=== PATIENT | male | born 1945 | race Caucasian/White ===

== ENCOUNTER 2018-10-27 06:27 | Inpatient (IN) | payer OTHER, BC ==
[2018-10-27 07:06] VITALS: BMI 32.3
[2018-10-27 08:16] LABS: BASO % 0.2 % (0-2.0); EOS % 1.5 % (0-4.5); HEMATOCRIT 45.5 % (35.4-49); HEMOGLOBIN 15.2 GM/dL (11.7-16.9); MCH 33.7 pg (25.7-33.7); MCHC 33.5 g/dl (32.0-35.9); MEAN CELL VOLUME 100.6 fl (80-96); MEAN PLT VOLUME 9.3 fl (7.5-11.1); MONO % 4.9 % (3.8-10.2); NEUT % 89.4 % (42.8-82.8); PLATELET COUNT 158 K/MM3 (134-434); RBC 4.52 M/mm3 (4.00-5.60); RDW 15.3 % (11.9-15.9); WHITE BLOOD COUNT 9.6 K/mm3 (4.0-10.0)
[2018-10-27 08:29] LABS: VENOUS PC02 59.9 mmHg (41-51); VENOUS PH 7.32 (7.31-7.41)
--- NOTE | 2018-10-27 08:29 | EKG ---
Test Reason : Blood Pressure : / mmHG Vent. Rate : 087 BPM Atrial Rate : 087 BPM P-R Int : 180 ms QRS Dur : 096 ms QT Int : 358 ms P-R-T Axes : 041 -46 051 degrees QTc Int : 430 ms SINUS RHYTHM WITH PREMATURE ATRIAL COMPLEXES LEFT ANTERIOR FASCICULAR BLOCK ABNORMAL ECG WHEN COMPARED WITH ECG OF 27-JAN-2014 10:36, PREMATURE ATRIAL COMPLEXES ARE NOW PRESENT VT INTERVAL HAS DECREASED VENT. RATE HAS INCREASED BY 39 BPM INCOMPLETE RIGHT BUNDLE BRANCH BLOCK IS NO LONGER PRESENT Confirmed by GINNY RODRIGUEZ, ROMEO ([id number]) on 10/27/2018 8:28:54 AM Referred By: Confirmed By:ROMEO GROSS MD
[2018-10-27 08:30] LABS: VENOUS PO2 27.1 mmHg (30-40)
[2018-10-27 08:41] LABS: INR 1.15 (0.83-1.09); PROTHROMBIN TIME (PATIENT) 13.6 SEC (9.7-13.0)
[2018-10-27 08:43] LABS: ACTIVATED PTT 30.7 SECONDS (25.2-36.5)
[2018-10-27 08:51] LABS: MAGNESIUM 1.6 mg/dL (1.8-2.4); N-TERMINAL BNP 313.1 pg/ml (5-450)
[2018-10-27 08:52] LABS: ALBUMIN 3.8 g/dl (3.4-5.0); ALK PHOS 42 U/L (45-117); ANION GAP 6 MMOL/L (8-16); BLOOD UREA NITROGEN 19 mg/dL (7-18); CALCIUM 9.2 mg/dL (8.5-10.1); CHLORIDE 103 mmol/L (98-107); CO2 30 mmol/L (21-32); CREATININE 1.1 mg/dL (0.55-1.3); GLUCOSE,RANDOM 109 mg/dL (74-106); POTASSIUM 4.2 mmol/L (3.5-5.1); SGOT/AST 15 U/L (15-37); SGPT/ALT 22 U/L (13-61); SODIUM 139 mmol/L (136-145)
--- NOTE | 2018-10-27 10:08 | PDOC ---
Documentation entered by Andria Gonzalez SCRIBE, acting as scribe for Viral Gordon MD. Viral Gordon MD: This documentation has been prepared by the Lisa peterson Victoria, SCRIBE, under my direction and personally reviewed by me in its entirety. I confirm that the documentation accurately reflects all work, treatment, procedures, and medical decision making performed by me. History of Present Illness - General Chief Complaint: SIRS, Suspected/Possible Stated Complaint: FEVER Time Seen by Provider: 10/27/18 07:08 History Source: Patient, Significant Other Exam Limitations: No Limitations - History of Present Illness Initial Comments: 10/27/18 08:34 The patient is a 73 year old male with past medical history of hypertension, hyperlipidemia, CAD (s/p double bypass surgery, on ASA), and prostate CA (s/p prostatectomy, in remission) who presents to the ED with complaints of fever, chills, chest discomfort and shortness of breath that began around 2 AM today. As per patients girlfriend, the patient woke up in the morning with rigorous chills and was complaining of diffuse body pain. In the ED, his fever was recorded at 101 rectally and patient endorses conversational dyspnea and a midsternal chest discomfort. He denies any palpitations, cough, headache, waekness/numbness, or loss of consciousness. He reports recent travel to [place] by train, but denies any sick contacts. Denies any NVD or urinary symptoms. Patient reports having a cardiac catheterization years ago and reports a blockage in one of his arteries was found, but it was too early for stenting. 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 PCP: Dr. Alejandro Cranberry Sorter: Dr. Joel. Past History - Past Medical History Allergies/Adverse Reactions: Allergies Allergy/AdvReac Type Severity Reaction Status Date / Time No Known Allergies Allergy Verified 10/27/18 07:06 Home Medications: Ambulatory Orders Acetaminophen [Tylenol .Regular Strength -] 650 mg PO Q4H PRN #0 tablet Ascorbic Acid [Vitamin C] 500 mg PO DAILY #0 tablet 11/13/12 Aspirin [ASA -] 81 mg PO DAILY #0 tab.chew 11/13/12 Atenolol [Tenormin -] 50 mg PO DAILY #0 tablet 11/13/12 Atorvastatin Ca [Lipitor] 80 mg PO HS #0 tab 11/13/12 Cholecalciferol (Vitamin D3) [Vitamin D] 1,000 mg PO DAILY #0 tablet 11/13/12 Docosahexanoic Acid/Epa [Fish Oil Softgel] 1,000 mg PO DAILY #0 capsule Multivit-Min/FA/Lycopene/Lut [Centrum Silver Tablet] 1 tab PO DAILY #0 tablet Omeprazole [Prilosec (RX)] 20 mg PO BID #0 capsule.dr 11/13/12 Ramipril [Altace] 5 mg PO DAILY #0 capsule 11/13/12 Tamsulosin HCl 0.4 mg PO HS #0 cap.er.24h 11/13/12 Fenofibrate Nanocrystallized [Tricor] 134 mg PO DAILY 01/27/14 Gabapentin [Neurontin -] 200 mg PO Q8H 01/27/14 Ranolazine [Ranexa -] 1,000 mg PO BID 10/27/18 Cancer: Yes (PROSTATE) Cardiac Disorders: Yes GI Disorders: Yes HTN: Yes Hypercholesterolemia: Yes - Surgical History Cardiac Surgery: (TRIPLE BYPASS '99) - Suicide/Smoking/Psychosocial Hx Smoking Status: No Smoking History: Never smoked Have you smoked in the past 12 months: No Number of Cigarettes Smoked Daily: 0 Information on smoking cessation initiated: No 'Breaking Loose' booklet given: 01/27/14 Hx Alcohol Use: No Drug/Substance Use Hx: No Substance Use Type: Alcohol Review of Systems - Review of Systems Able to Perform ROS?: Yes Comments:: 10/27/18 08:34 GENERAL/CONSTITUTIONAL: (+) Chills, fever. No weakness. HEAD, EYES, EARS, NOSE AND THROAT: No change in vision. No ear pain or discharge. No sore throat. GASTROINTESTINAL: No nausea, vomiting, diarrhea or constipation. GENITOURINARY: No dysuria, frequency, or change in urination. CARDIOVASCULAR: (+) chest discomfort, SOB. RESPIRATORY: No cough, wheezing, or hemoptysis. MUSCULOSKELETAL:(+)Body aches, neck pain. SKIN: No rash NEUROLOGIC: No headache, vertigo, loss of consciousness, or change in strength/ sensation. ENDOCRINE: No increased thirst. No abnormal weight change. HEMATOLOGIC/LYMPHATIC: No anemia, easy bleeding, or history of blood clots. ALLERGIC/IMMUNOLOGIC: No hives or skin allergy. All Other Systems: Reviewed and Negative *Physical Exam - Vital Signs Last Vital Signs Temp Pulse Resp BP Pulse Ox 100.9 F H 84 18 135/75 96 10/27/18 07:17 10/27/18 06:27 10/27/18 06:27 10/27/18 06:27 10/27/18 06:27 - Physical Exam Comments: 10/27/18 10:00 GENERAL: Awake, alert, and fully oriented, in no acute distress EYES: PERRLA, EOMI, sclera anicteric, conjunctiva clear ENT: Nares patent, oropharynx clear without exudates. Moist mucosa NECK: Normal ROM, supple, no lymphadenopathy, JVD, or masses. Able to bring chin to chest, no meningismus LUNGS: No wheezes/crackles, normal BS on the L. +diminshed BS at R lung base HEART: Regular rate and rhythm, normal S1 and S2, no murmurs, rubs or gallops ABDOMEN: Soft, nontender, normoactive bowel sounds. No guarding, no rebound. No masses EXTREMITIES: Normal range of motion, no edema. No cords, erythema, or tenderness NEUROLOGICAL: Normal speech, cranial nerves intact, 5/5 strength in all 4 extremities, normal sensation to light touch in all 4 extremities, normal cerebellar exam, normal gait BACK: no midline spinal ttp SKIN: Warm, Dry, normal turgor, no rashes or lesions noted. Heart Score/ECG Review - History History: Moderately suspicious - Electrocardiogram EKG: Non specific repolarization disturbance - Age Age: >/= 65 - Risk Factors Based on the list above the patient has:: >/=3 risk factors or Hx atherosclerotic disease - Troponin Troponin: </= normal limit - Score Heart Score - Total: 6 #1 10/27/18 10:05 Twelve-lead EKG was performed and reviewed by me. Sinus rhythm with premature atrial complexes. Rate 87. Left axis deviation. L anterior fascicular block. No ST elevations. ED Treatment Course - LABORATORY CBC & Chemistry Diagram: 10/27/18 07:55 10/27/18 07:55 - ADDITIONAL ORDERS Additional order review: Laboratory Results 10/27/18 10/27/18 10/27/18 07:55 07:55 07:55 PT with INR INR PTT (Actin FS) VBG pH POC VBG pCO2 POC VBG pO2 VBG HCO3 VBG O2 Sat (Juan Jose) VBG Base Excess Sodium 139 Potassium 4.2 Chloride 103 Carbon Dioxide 30 Anion Gap 6 L BUN 19 H Creatinine 1.1 Creat Clearance w eGFR 65.26 Random Glucose 109 H Lactic Acid 1.8 Calcium 9.2 Magnesium 1.6 L Total Bilirubin 1.0 AST 15 ALT 22 Alkaline Phosphatase 42 L Creatine Kinase 54 CK-MB (CK-2) < 1.0 Troponin I < 0.02 B-Natriuretic Peptide 313.1 Total Protein 7.0 Albumin 3.8 10/27/18 10/27/18 07:55 07:55 PT with INR 13.60 H INR 1.15 H PTT (Actin FS) 30.7 VBG pH 7.32 POC VBG pCO2 59.9 H POC VBG pO2 27.1 L VBG HCO3 29.9 H VBG O2 Sat (Juan Jose) 40.7 L VBG Base Excess 2.4 H Sodium Potassium Chloride Carbon Dioxide Anion Gap BUN Creatinine Creat Clearance w eGFR Random Glucose Lactic Acid Calcium Magnesium Total Bilirubin AST ALT Alkaline Phosphatase Creatine Kinase CK-MB (CK-2) Troponin I B-Natriuretic Peptide Total Protein Albumin 10/27/18 07:55 RBC 4.52 MCV 100.6 H MCHC 33.5 RDW 15.3 MPV 9.3 Neutrophils % 89.4 H D Lymphocytes % 4.0 L D Monocytes % 4.9 Eosinophils % 1.5 Basophils % 0.2 - RADIOLOGY Radiology Studies Ordered: Category Date Time Status CHEST X-RAY PORTABLE* [RAD] Stat Radiology 10/27/18 07:43 Completed Radiograph Interpretation: 10/27/18 10:39 Chest X-ray as reviewed by Dr. Quinn Elevated right hemidiaphragm with large heart, scelrotic knob, surgical sutures and clips. There is atelectasis at the right base. 10/27/18 13:09 Chest CTA as reviewed by Dr. Gonzalez No evidence of PE. Nodules, scarring, and infiltration of right middle lobe. Medical Decision Making - Medical Decision Making 10/27/18 09:06 73yo M with MMP including CAD, HL, HTN prseents to the ED with fever, rigors, chest discomfort and SOB. Vitals with fever to 101 rectally Pt appears dyspneic speaking in 4-5 word sentences DDx includes PNA vs ACS vs PE. Pt is low risk for PE with no known RF Plan for -labs -XR -likely admit 10/27/18 10:[address] Bagley (cards), agrees with plan thus far, no cards recommendations 10/27/18 10:[address] Alejandro and case was discussed. 10/27/18 13:10 CTA negative for PE but confirms RML infiltrate. Pt covered with ceftriaxone and azithro. In light of PNA as well as chest discomfort, will admit pt for observation for PNA and KRISTOFER. Microblog sent to [employer]. Awaiting call back. 10/27/18 13:[address] Weathers, case was discussed. Pt accepted for admission Case discussed in detail with admitting physician including history, physical exam and ancillary studies. Admitting physician has assumed care for the patient, will follow all pending diagnostics and will complete the evaluation and treatment. *DC/Admit/Observation/Transfer Diagnosis at time of Disposition: Pneumonia, Chest pain - Discharge Dispostion Condition at time of disposition: Stable - Referrals Referrals: Ramiro Alejandro MD [Primary Care Provider] - - Patient Instructions - Post Discharge Activity - Attestations Physician Attestion: 10/27/18 14:15 I, Dr. Viral Gordon MD, attest that this document has been prepared under my direction and personally reviewed by me in its entirety. I further attest, that it accurately reflects all work, treatment, procedures and medical decision -making performed by me.
[2018-10-27] MEDS ORDERED: ACETAMINOPHEN 1000 MG/100 ML VIAL (NON FORMULARY) IVPB ONE (10:09)
[2018-10-27] MEDS ORDERED: ACETAMINOPHEN INJECTION 100 ML IVPB ONE (10:14)
[2018-10-27] MEDS ORDERED: CEFTRIAXONE 1,000 MG in DEXTROSE 5%-WATER - 50 ML IVPB ONE (10:54)
[2018-10-27] MEDS ORDERED: AZITHROMYCIN IVPB 500 MG in DEXTROSE 5%-WATER - 250 ML IVPB ONE (10:55)
[2018-10-27] MEDS ORDERED: ASPIRIN 325 MG TABLET PO ONE (10:55)
[2018-10-27] MEDS ORDERED: ASPIRIN 325 MG TABLET ONE (10:58)
[2018-10-27] MEDS ORDERED: CEFTRIAXONE 1 GM/50 ML BAG ONE (10:58)
[2018-10-27] MEDS ORDERED: AZITHROMYCIN IVPB 500 MG/250 ML BAG IVPB ONE (11:58)
[2018-10-27 12:23] LABS: URINE APPEARANCE Error; URINE BILIRUBIN NEGATIVE (NEGATIVE); URINE COLOR YELLOW; URINE GLUCOSE (UA) NEGATIVE (NEGATIVE); URINE KETONE TRACE (NEGATIVE); URINE LEUK ESTERASE NEGATIVE (NEGATIVE); URINE NITRITE NEGATIVE (NEGATIVE); URINE PROTEIN NEGATIVE (NEGATIVE); URINE UROBILINOGEN 0.2 mg/dL (0.2-1.0)
--- NOTE | 2018-10-27 16:22 | HP ---
CHIEF COMPLAINT: Chills PCP: Dr. Alejandro HISTORY OF PRESENT ILLNESS: 73 y/o M w/PMH of HTN, HLD, CAD, prostate ca (s/p prostatectomy, in remission) presented to the ER with c/o chills and fevers. Chills started yesterday night and were associated with shaking and not relieved with using blankets. He also developed feeling feverish with chills too and had SOB with some chest discomfort. He was in his usual state of health the day before and the chills and fevers started at night. He thought he would be able to sleep it off but upon waking up was still having shaking chills and came to the hospital. He reports 5-6 pound weight gain over the last 2-3 weeks. He denies any sick contacts, LE pain, abd pain, change in BMs, change in urinary habits. ER course was notable for: (1) Ceftriaxone, Azithro, ofirmev, (2) CXR, Chest CTA (3) Recent Travel: Took a train to [place] PAST MEDICAL HISTORY: HTN, HLD, CAD, prostate ca (s/p prostatectomy, in remission) PAST SURGICAL HISTORY: cardiac bypass, cardiac cath Social History: Smoking: denies Alcohol: drinks approximately 4 drinks /day Drugs: denies Allergies No Known Allergies Allergy (Verified 10/27/18 07:06) HOME MEDICATIONS: Home Medications Medication Instructions Recorded Acetaminophen [Tylenol .Regular 650 mg PO Q4H PRN #0 tablet 11/13/12 Strength -] Ascorbic Acid [Vitamin C] 500 mg PO DAILY #0 tablet 11/13/12 Aspirin [ASA -] 81 mg PO DAILY #0 tab.chew 11/13/12 Atenolol [Tenormin -] 50 mg PO DAILY #0 tablet 11/13/12 Atorvastatin Ca [Lipitor] 80 mg PO HS #0 tab 11/13/12 Cholecalciferol (Vitamin D3) 1,000 mg PO DAILY #0 tablet 11/13/12 [Vitamin D] Docosahexanoic Acid/Epa [Fish Oil 1,000 mg PO DAILY #0 capsule 11/13/12 Softgel] Multivit-Min/FA/Lycopene/Lut 1 tab PO DAILY #0 tablet 11/13/12 [Centrum Silver Tablet] Omeprazole [Prilosec (RX)] 20 mg PO BID #0 capsule.dr 11/13/12 Ramipril [Altace] 5 mg PO DAILY #0 capsule 11/13/12 Tamsulosin HCl 0.4 mg PO HS #0 cap.er.24h 11/13/12 Fenofibrate Nanocrystallized 134 mg PO DAILY 01/27/14 [Tricor] Gabapentin [Neurontin -] 200 mg PO Q8H 01/27/14 Ranolazine [Ranexa -] 1,000 mg PO BID 10/27/18 REVIEW OF SYSTEMS CONSTITUTIONAL: +fevers, chills HEENT: Absent: rhinorrhea, visual changes CARDIOVASCULAR: +chest discomfort RESPIRATORY: +sob Absent: cough GASTROINTESTINAL: Absent: abdominal pain, abdominal distension, nausea, vomiting, diarrhea, constipation GENITOURINARY: Absent: dysuria NEUROLOGIC: Absent: headache PHYSICAL EXAMINATION Vital Signs - 24 hr 10/27/18 10/27/18 10/27/18 06:27 07:17 08:10 Temperature 99.0 F 100.9 F H Pulse Rate 84 Pulse Rate [ Apical] Respiratory 18 Rate Blood Pressure 135/75 Blood Pressure [Right Arm] O2 Sat by Pulse 96 95 Oximetry (%) 10/27/18 10/27/18 10/27/18 10:30 11:20 14:35 Temperature 98.8 F Pulse Rate Pulse Rate [ 74 85 Apical] Respiratory 17 20 Rate Blood Pressure Blood Pressure 132/74 130/74 [Right Arm] O2 Sat by Pulse 96 96 Oximetry (%) GENERAL: Awake, alert, and fully oriented, in no acute distress. EYES: extraocular movements intact, sclera anicteric, conjunctiva clear. EARS, NOSE, THROAT: Ears normal, nares patent. No facial tenderness or pressure. NECK: Normal range of motion, supple. LUNGS: Breath sounds equal, clear to auscultation bilaterally. HEART: Regular rate and rhythm, normal S1 and S2 ABDOMEN: Soft, nontender, not distended, normoactive bowel sounds LOWER EXTREMITIES: warm, well-perfused. No calf tenderness. Trace b/l LE pitting edema. NEUROLOGICAL: Cranial nerves II-XII intact. Normal speech. Gait not observed. PSYCHIATRIC: Cooperative. Good eye contact. Appropriate mood and affect. SKIN: Warm, dry Laboratory Results - last 24 hr 10/27/18 10/27/18 10/27/18 07:55 07:55 07:55 WBC 9.6 RBC 4.52 Hgb 15.2 Hct 45.5 MCV 100.6 H MCH 33.7 MCHC 33.5 RDW 15.3 Plt Count 158 D MPV 9.3 Absolute Neuts (auto) 8.5 H Neutrophils % 89.4 H D Lymphocytes % 4.0 L D Monocytes % 4.9 Eosinophils % 1.5 Basophils % 0.2 Nucleated RBC % 0 PT with INR 13.60 H INR 1.15 H PTT (Actin FS) 30.7 D-Dimer VBG pH 7.32 POC VBG pCO2 59.9 H POC VBG pO2 27.1 L VBG HCO3 29.9 H VBG O2 Sat (Juan Jose) 40.7 L VBG Base Excess 2.4 H Sodium Potassium Chloride Carbon Dioxide Anion Gap BUN Creatinine Creat Clearance w eGFR Random Glucose Lactic Acid Calcium Magnesium Total Bilirubin AST ALT Alkaline Phosphatase Creatine Kinase CK-MB (CK-2) Troponin I B-Natriuretic Peptide Total Protein Albumin Urine Color Urine Appearance Urine pH Ur Specific [place] Urine Protein Urine Glucose (UA) Urine Ketones Urine Blood Urine Nitrite Urine Bilirubin Urine Urobilinogen Ur Leukocyte Esterase Influenza A (Rapid) Influenza B (Rapid) 10/27/18 10/27/18 10/27/18 07:55 07:55 07:55 WBC RBC Hgb Hct MCV MCH MCHC RDW Plt Count MPV Absolute Neuts (auto) Neutrophils % Lymphocytes % Monocytes % Eosinophils % Basophils % Nucleated RBC % PT with INR INR PTT (Actin FS) D-Dimer VBG pH POC VBG pCO2 POC VBG pO2 VBG HCO3 VBG O2 Sat (Juan Jose) VBG Base Excess Sodium 139 Potassium 4.2 Chloride 103 Carbon Dioxide 30 Anion Gap 6 L BUN 19 H Creatinine 1.1 Creat Clearance w eGFR 65.26 Random Glucose 109 H Lactic Acid 1.8 Calcium 9.2 Magnesium 1.6 L Total Bilirubin 1.0 AST 15 ALT 22 Alkaline Phosphatase 42 L Creatine Kinase 54 CK-MB (CK-2) < 1.0 Troponin I < 0.02 B-Natriuretic Peptide 313.1 Total Protein 7.0 Albumin 3.8 Urine Color Urine Appearance Urine pH Ur Specific [place] Urine Protein Urine Glucose (UA) Urine Ketones Urine Blood Urine Nitrite Urine Bilirubin Urine Urobilinogen Ur Leukocyte Esterase Influenza A (Rapid) Influenza B (Rapid) 10/27/18 10/27/18 10/27/18 07:55 07:55 11:04 WBC RBC Hgb Hct MCV MCH MCHC RDW Plt Count MPV Absolute Neuts (auto) Neutrophils % Lymphocytes % Monocytes % Eosinophils % Basophils % Nucleated RBC % PT with INR INR PTT (Actin FS) D-Dimer 526 H VBG pH POC VBG pCO2 POC VBG pO2 VBG HCO3 VBG O2 Sat (Juan Jose) VBG Base Excess Sodium Potassium Chloride Carbon Dioxide Anion Gap BUN Creatinine Creat Clearance w eGFR Random Glucose Lactic Acid Calcium Magnesium Total Bilirubin AST ALT Alkaline Phosphatase Creatine Kinase CK-MB (CK-2) Troponin I B-Natriuretic Peptide Total Protein Albumin Urine Color Yellow Urine Appearance Error Urine pH 5.0 Ur Specific [place] 1.024 Urine Protein Negative Urine Glucose (UA) Negative Urine Ketones Trace H Urine Blood Negative Urine Nitrite Negative Urine Bilirubin Negative Urine Urobilinogen 0.2 Ur Leukocyte Esterase Negative Influenza A (Rapid) Negative Influenza B (Rapid) Negative ASSESSMENT/PLAN: 73 y/o M w/PMH of HTN, HLD, CAD, prostate ca (s/p prostatectomy, in remission) presented to the ER with c/o chills and fevers and found to have infiltrate on RML and admitted for PNA. -SOB/fevers/chills secondary to community acquired pna -ceftriaxone and azithromycin -duonebs QID -O2 supplementation to keep oxygen saturation above 90% -tylenol for fevers -f/u urine and blood cultures. Flu negative -trops neg x2 -Macrocytosis -may be secondary to daily alcohol use -monitor CBC -HTN -bystolic 2.5mg -CAD -c/w asa 81 mg -GERD -Ranitidine 150 mg bid -BPH -c/w flomax -DVT ppx -heparin 5000 units sq q8h -FEN -No fluids -Monitor electrolytes -Cardiac diet -Dispo: Monitor on m/s Visit type - Emergency Visit Emergency Visit: Yes ED Registration Date: 10/27/18 Care time: The patient presented to the Emergency Department on the above date and was hospitalized for further evaluation of their emergent condition. - New Patient This patient is new to me today: Yes Date on this admission: 10/27/18 - Critical Care Critical Care patient: No
--- NOTE | 2018-10-27 17:53 | CON.CARD ---
Consult Consult Specialty:: Cardiology Referred by:: Hospitalist Medicine for Ramiro Alejandro MD Reason for Consultation:: CAD s/p CABG - History of Present Illness Chief Complaint: Fevers, chills, dyspnea History of Present Illness: 73 y/o M w/PMH of HTN, HLD, CAD s/p CABG 03/1999(GARRISON->LAD, SVG->dRCA patent on 03/05/2015 cath), diastolic dysfunction, HTN heart disease with labile pressures , hyperlipidemia, prostate ca (s/p prostatectomy, in remission), last seen in office 10/18/2018 presented to the ER with c/o shaking chill, rigors and fevers. Chills started yesterday night and were associated with shaking and not relieved with using blankets. He also developed feeling feverish with chills too and had SOB with some pleuritic chest discomfort. He reports 5-6 pound weight gain over the last 1-2 weeks. He denies any sick contacts, LE pain, abd pain, change in BMs, change in urinary habits, reports occasional positional dizziness. - History Source History Provided By: Patient Limitations to Obtaining History: No Limitations - Past Medical History [employer]: Yes: Peripheral Neuropathy Cardio/Vascular: Yes: CAD, HTN, Hyperlipdemia - Past Surgical History Past Surgical History: Yes: CABG - Alcohol/Substance Use Hx Alcohol Use: No - Smoking History Smoking history: Never smoked Have you smoked in the past 12 months: No Aproximately how many cigarettes per day: 0 Home Medications - Allergies Allergies/Adverse Reactions: Allergies Allergy/AdvReac Type Severity Reaction Status Date / Time No Known Allergies Allergy Verified 10/27/18 07:06 - Home Medications Home Medications: Ambulatory Orders Acetaminophen [Tylenol .Regular Strength -] 650 mg PO Q4H PRN #0 tablet Ascorbic Acid [Vitamin C] 500 mg PO DAILY #0 tablet 11/13/12 Aspirin [ASA -] 81 mg PO DAILY #0 tab.chew 11/13/12 Atenolol [Tenormin -] 50 mg PO DAILY #0 tablet 11/13/12 Atorvastatin Ca [Lipitor] 80 mg PO HS #0 tab 11/13/12 Cholecalciferol (Vitamin D3) [Vitamin D] 1,000 mg PO DAILY #0 tablet 11/13/12 Docosahexanoic Acid/Epa [Fish Oil Softgel] 1,000 mg PO DAILY #0 capsule Multivit-Min/FA/Lycopene/Lut [Centrum Silver Tablet] 1 tab PO DAILY #0 tablet Omeprazole [Prilosec (RX)] 20 mg PO BID #0 capsule.dr 11/13/12 Ramipril [Altace] 5 mg PO DAILY #0 capsule 11/13/12 Tamsulosin HCl 0.4 mg PO HS #0 cap.er.24h 11/13/12 Fenofibrate Nanocrystallized [Tricor] 134 mg PO DAILY 01/27/14 Gabapentin [Neurontin -] 200 mg PO Q8H 01/27/14 Ranolazine [Ranexa -] 1,000 mg PO BID 10/27/18 Review of Systems - Review of Systems Constitutional: reports: Chills, Fever Cardiovascular: reports: Chest Pain Respiratory: reports: SOB Vital Signs: Vital Signs Temperature 98.8 F 10/27/18 16:57 Pulse Rate 68 10/27/18 16:57 Respiratory Rate 20 10/27/18 16:57 Blood Pressure 124/60 10/27/18 16:57 O2 Sat by Pulse Oximetry (%) 97 10/27/18 16:57 Constitutional: Yes: No Distress, Calm Neck: Yes: Supple Respiratory: Yes: Regular, Diminished, On Nasal O2 Gastrointestinal: Yes: Normal Bowel Sounds, Soft, Abdomen, Obese Cardiovascular: Yes: Regular Rate and Rhythm JVD: No Carotid Bruit: No Heart Sounds: Yes: S1, S2 Murmur: Yes: Systolic Murmur, Grade 1 Edema: No - Other Data Labs, Other Data: CBC, BMP 10/27/18 07:55 10/27/18 07:55 INR, PTT INR 1.15 (0.83-1.09) H 10/27/18 07:55 Troponin, BNP 10/27/18 10/27/18 07:55 17:00 Troponin I < 0.02 < 0.02 B-Natriuretic Peptide 313.1 Troponin, BNP 10/27/18 10/27/18 07:55 17:00 Troponin I < 0.02 < 0.02 B-Natriuretic Peptide 313.1 NSR @ 87 LAD PAC Echo: Report Reviewed Prior Cardiac Procedures: CABG Ejection Fraction %: LVEF > or = 40 % Imaging - Results Chest X-ray: Report Reviewed (Right base ATX) Cat Scan: Report Reviewed (No PE, + RML infiltrate) Problem List - Problems (1) Coronary artery disease Code(s): I25.10 - ATHSCL HEART DISEASE OF [place] CORONARY ARTERY W/O ANG PCTRS Qualifiers: Coronary Disease-Associated Artery/Lesion type: [place] artery [place] vs. transplanted heart: [place] heart Associated angina: without angina Qualified Code(s): I25.10 - Atherosclerotic heart disease of [place] coronary artery without angina pectoris (2) S/P CABG (coronary artery bypass graft) Code(s): Z95.1 - PRESENCE OF AORTOCORONARY BYPASS GRAFT (3) Hyperlipidemia Code(s): E78.5 - HYPERLIPIDEMIA, UNSPECIFIED Qualifiers: Hyperlipidemia type: mixed hyperlipidemia Qualified Code(s): E78.2 - Mixed hyperlipidemia (4) Labile hypertension Code(s): R09.89 - OTH SYMPTOMS AND SIGNS INVOLVING THE CIRC AND RESP SYSTEMS (5) Chest pain Code(s): R07.9 - CHEST PAIN, UNSPECIFIED Qualifiers: Chest pain type: chest pain on breathing Qualified Code(s): R07.1 - Chest pain on breathing; R07.81 - Pleurodynia (6) Pneumonia Code(s): J18.9 - PNEUMONIA, UNSPECIFIED ORGANISM Qualifiers: Pneumonia type: due to unspecified organism Laterality: right Lung location: middle lobe of lung Qualified Code(s): J18.1 - Lobar pneumonia, unspecified organism (7) Diastolic dysfunction without heart failure Code(s): I51.89 - OTHER ILL-DEFINED HEART DISEASES Assessment/Plan October 15, 2017 Echo: Normal LV size and fxn LVEF 60-65%, mild MR, AR, TR RVSP 40 mmHg 1. Dyspnea, pleurisy, fevers and chills referable to RML PNA r/o sepsis 2. CAD s/p CABG, angina pectoris 3. Hypertensive heart disease with labile BP and postural hypotension 4. Diastolic dysfunction 5. Hyperlipidemia 6. Prostate ca s/p prostatectomy 7. H/o Crestor and fenofibrate-associated myalgias and arthralgias P:1. IV abx per C&S, BD, O2 as needed 2. Ruled out for CA 3. Continue ASA 81 qd, Bystolic 2.5 qd, zetia 10 qd, 4. Thank you for consultative opportunity
[2018-10-27] MEDS ORDERED: ACETAMINOPHEN 325 MG TABLET (FP) PO PRN (19:05)
[2018-10-27] MEDS ORDERED: ALBUTEROL SO4 0.083% IH SOL 2.5 MG/3 ML VIAL.NEB. NEB PRN (19:12)
[2018-10-27] MEDS ORDERED: MAGNESIUM SULF 50% (8.12 MEQ/2 ML-1 GM VIAL) IVPB ONE ×2 (19:13→23:45)
--- NOTE | 2018-10-27 19:18 | PN ---
Teaching Attending Note Name of Resident: Fabián Phoenix ATTENDING PHYSICIAN STATEMENT I saw and evaluated the patient. I reviewed the resident's note and discussed the case with the resident. I agree with the resident's findings and plan as documented with exceptions below. SUBJECTIVE: 73 yom with PMHx of HTN, HLD, CAD s/p CABG 03/1999(GARRISON->LAD, SVG->dRCA patent on 03/05/2015 cath), diastolic dysfunction, HTN heart disease with labile pressures, hyperlipidemia, prostate ca (s/p prostatectomy, in remission), admitted with chills, cough with clear sputum,dsypnea and pleuritic chest pain. Denies recent antibiotics, hospitalization, travel or sick contacts, no recent URI like illness but reports ongoing chronic sinusitis, and BPPV, seen by ENT in the past with no recent change. 12 point ROS done, also positive for 5 lbs weight gain over last 3 weeks, no orthopnea/PND/exertional chest pain, abdominal or urinary symptoms. Reports drinking 2 glasses of wine daily. OBJECTIVE: Vital Signs Period Temp Pulse Resp BP Sys/Neri Pulse Ox Last 24 Hr 98.8 F-100.9 F 68-85 17-20 124-135/60-75 95-97 Intake & Output 10/24/18 10/25/18 10/26/18 10/27/18 23:59 23:59 23:59 23:59 Weight 225 lb GENERAL: Awake, alert, and fully oriented, in no acute distress, able to speak in full sentences, flushed. HEAD: Normal with no signs of trauma. EYES: Pupils equal, round and reactive to light, extraocular movements intact, sclera anicteric, conjunctiva clear. No lid lag. EARS, NOSE, THROAT: Ears normal, nares patent, oropharynx clear without exudates. Moist mucous membranes. No maxillary tenderness noted NECK: soft, supple, no JVD noted LUNGS: bibasilar rales, R/L, decreased air entry, no wheezing noted HEART: Regular rate and rhythm, normal S1 and S2 ABDOMEN: Soft, nontender, not distended, normoactive bowel sounds, no guarding, no rebound, no masses. MUSCULOSKELETAL: Normal range of motion at all joints. No bony deformities or tenderness. No CVA tenderness. UPPER EXTREMITIES: 2+ pulses, warm, well-perfused. No cyanosis. No clubbing. No peripheral edema, mild tremors. LOWER EXTREMITIES: 2+ pulses, warm, well-perfused. No calf tenderness. No peripheral edema. NEUROLOGICAL: AAOx3, facial symmetry, power 5/5, Cranial nerves II-XII intact. Normal speech. gait not observed PSYCHIATRIC: Cooperative. Good eye contact. Appropriate mood and affect. SKIN: flushed, no lesions Home Medications Medication Instructions Recorded Acetaminophen [Tylenol .Regular 650 mg PO Q4H PRN #0 tablet 11/13/12 Strength -] Ascorbic Acid [Vitamin C] 500 mg PO DAILY #0 tablet 11/13/12 Aspirin [ASA -] 81 mg PO DAILY #0 tab.chew 11/13/12 Atenolol [Tenormin -] 50 mg PO DAILY #0 tablet 11/13/12 Atorvastatin Ca [Lipitor] 80 mg PO HS #0 tab 11/13/12 Cholecalciferol (Vitamin D3) 1,000 mg PO DAILY #0 tablet 11/13/12 [Vitamin D] Docosahexanoic Acid/Epa [Fish Oil 1,000 mg PO DAILY #0 capsule 11/13/12 Softgel] Multivit-Min/FA/Lycopene/Lut 1 tab PO DAILY #0 tablet 11/13/12 [Centrum Silver Tablet] Omeprazole [Prilosec (RX)] 20 mg PO BID #0 capsule.dr 11/13/12 Ramipril [Altace] 5 mg PO DAILY #0 capsule 11/13/12 Tamsulosin HCl 0.4 mg PO HS #0 cap.er.24h 11/13/12 Fenofibrate Nanocrystallized 134 mg PO DAILY 01/27/14 [Tricor] Gabapentin [Neurontin -] 200 mg PO Q8H 01/27/14 Ranolazine [Ranexa -] 1,000 mg PO BID 10/27/18 Active Medications Acetaminophen (Tylenol -) 650 mg PO Q6H PRN PRN Reason: PAIN OR FEVER Albuterol Sulfate (Ventolin 0.083% Nebulizer Soln -) 1 amp NEB Q4H PRN PRN Reason: SHORT OF BREATH/WHEEZING Albuterol/Ipratropium (Duoneb -) 1 amp NEB RQID ALEAH Aspirin (Asa -) 81 mg PO DAILY ALEAH Ezetimibe (Zetia -) 10 mg PO DAILY ALEAH Heparin Sodium (Porcine) (Heparin -) 5,000 unit SQ TID [facility] Azithromycin (Zithromax 500mg Ivpb (Pre-Docked)) 500 mg in 250 mls @ 250 mls/ hr IVPB DAILY [facility] Ceftriaxone Sodium 1 gm/ (Dextrose) 50 mls @ 100 mls/hr IVPB DAILY [facility] Nebivolol (Bystolic -) 2.5 mg PO DAILY [facility] Ranolazine (Ranexa -) 1,000 mg PO BID [facility] Laboratory Results - last 24 hr 10/27/18 10/27/18 10/27/18 07:55 07:55 07:55 WBC 9.6 RBC 4.52 Hgb 15.2 Hct 45.5 MCV 100.6 H MCH 33.7 MCHC 33.5 RDW 15.3 Plt Count 158 D MPV 9.3 Absolute Neuts (auto) 8.5 H Neutrophils % 89.4 H D Lymphocytes % 4.0 L D Monocytes % 4.9 Eosinophils % 1.5 Basophils % 0.2 Nucleated RBC % 0 PT with INR 13.60 H INR 1.15 H PTT (Actin FS) 30.7 D-Dimer VBG pH 7.32 POC VBG pCO2 59.9 H POC VBG pO2 27.1 L VBG HCO3 29.9 H VBG O2 Sat (Juan Jose) 40.7 L VBG Base Excess 2.4 H Sodium Potassium Chloride Carbon Dioxide Anion Gap BUN Creatinine Creat Clearance w eGFR Random Glucose Lactic Acid Calcium Magnesium Total Bilirubin AST ALT Alkaline Phosphatase Creatine Kinase CK-MB (CK-2) Troponin I B-Natriuretic Peptide Total Protein Albumin Urine Color Urine Appearance Urine pH Ur Specific [place] Urine Protein Urine Glucose (UA) Urine Ketones Urine Blood Urine Nitrite Urine Bilirubin Urine Urobilinogen Ur Leukocyte Esterase Influenza A (Rapid) Influenza B (Rapid) 10/27/18 10/27/18 10/27/18 07:55 07:55 07:55 WBC RBC Hgb Hct MCV MCH MCHC RDW Plt Count MPV Absolute Neuts (auto) Neutrophils % Lymphocytes % Monocytes % Eosinophils % Basophils % Nucleated RBC % PT with INR INR PTT (Actin FS) D-Dimer VBG pH POC VBG pCO2 POC VBG pO2 VBG HCO3 VBG O2 Sat (Juan Jose) VBG Base Excess Sodium 139 Potassium 4.2 Chloride 103 Carbon Dioxide 30 Anion Gap 6 L BUN 19 H Creatinine 1.1 Creat Clearance w eGFR 65.26 Random Glucose 109 H Lactic Acid 1.8 Calcium 9.2 Magnesium 1.6 L Total Bilirubin 1.0 AST 15 ALT 22 Alkaline Phosphatase 42 L Creatine Kinase 54 CK-MB (CK-2) < 1.0 Troponin I < 0.02 B-Natriuretic Peptide 313.1 Total Protein 7.0 Albumin 3.8 Urine Color Urine Appearance Urine pH Ur Specific [place] Urine Protein Urine Glucose (UA) Urine Ketones Urine Blood Urine Nitrite Urine Bilirubin Urine Urobilinogen Ur Leukocyte Esterase Influenza A (Rapid) Influenza B (Rapid) 10/27/18 10/27/18 10/27/18 07:55 07:55 11:04 WBC RBC Hgb Hct MCV MCH MCHC RDW Plt Count MPV Absolute Neuts (auto) Neutrophils % Lymphocytes % Monocytes % Eosinophils % Basophils % Nucleated RBC % PT with INR INR PTT (Actin FS) D-Dimer 526 H VBG pH POC VBG pCO2 POC VBG pO2 VBG HCO3 VBG O2 Sat (Juan Jose) VBG Base Excess Sodium Potassium Chloride Carbon Dioxide Anion Gap BUN Creatinine Creat Clearance w eGFR Random Glucose Lactic Acid Calcium Magnesium Total Bilirubin AST ALT Alkaline Phosphatase Creatine Kinase CK-MB (CK-2) Troponin I B-Natriuretic Peptide Total Protein Albumin Urine Color Yellow Urine Appearance Error Urine pH 5.0 Ur Specific [place] 1.024 Urine Protein Negative Urine Glucose (UA) Negative Urine Ketones Trace H Urine Blood Negative Urine Nitrite Negative Urine Bilirubin Negative Urine Urobilinogen 0.2 Ur Leukocyte Esterase Negative Influenza A (Rapid) Negative Influenza B (Rapid) Negative 10/27/18 17:00 WBC RBC Hgb Hct MCV MCH MCHC RDW Plt Count MPV Absolute Neuts (auto) Neutrophils % Lymphocytes % Monocytes % Eosinophils % Basophils % Nucleated RBC % PT with INR INR PTT (Actin FS) D-Dimer VBG pH POC VBG pCO2 POC VBG pO2 VBG HCO3 VBG O2 Sat (Juan Jose) VBG Base Excess Sodium Potassium Chloride Carbon Dioxide Anion Gap BUN Creatinine Creat Clearance w eGFR Random Glucose Lactic Acid Calcium Magnesium Total Bilirubin AST ALT Alkaline Phosphatase Creatine Kinase CK-MB (CK-2) Troponin I < 0.02 B-Natriuretic Peptide Total Protein Albumin Urine Color Urine Appearance Urine pH Ur Specific [place] Urine Protein Urine Glucose (UA) Urine Ketones Urine Blood Urine Nitrite Urine Bilirubin Urine Urobilinogen Ur Leukocyte Esterase Influenza A (Rapid) Influenza B (Rapid) CXR and CTA results reviewed EKG: NSR, LAFB, QTC 430 ASSESSMENT AND PLAN: 73 yom with PMHx of HTN, HLD, CAD s/p CABG 03/1999(GARRISON->LAD, SVG->dRCA patent on 03/05/2015 cath), diastolic dysfunction, HTN heart disease with labile pressures, hyperlipidemia, prostate ca (s/p prostatectomy, in remission), admitted with RML CAP -RML CAP -Suspected acute bronchitis due to above -Atypical CP, likely from above -CAD s/p CABG -HTN -HLD -Diastolic HF, not in exacerbation -Prostate Ca, in remission -ETOH dependence Plan: Ceftriaxone/azithromycin. influenza swab neg. Urine PNA studies. Follow up blood cx. standing and prn nebs. Assess for short course of steroids based on clinical course. Cardiology input noted, continue ASA/zetia/bystolic/Ranexa. Monitor for ETOH withdrawal. PT eval and home oxygen needs assessment in 24 hours if continues to improve. DVTPPX heparin Dispo d/c in 24-48 hours if continues to improve. Plan discussed with patient and significant other and son at bedside in detail, all questions answered Total admit time 65 min.
[2018-10-27] MEDS: ALBUTEROL SO4 2.5/IPRATROPIUM 0.5 INH SOL 3 ML VIAL.NEB. NEB SCH (21:23)
[2018-10-27] MEDS: HEPARIN NA (PORCINE) 5,000 UNITS/ML 1ML VIAL SQ SCH (21:58)
[2018-10-27] MEDS: RANITIDINE HCL 150 MG TABLET (FP) PO SCH (21:59)
[2018-10-27] MEDS: TAMSULOSIN HCL 0.4 MG CAP PO SCH (21:59)
[2018-10-27] MEDS: RANOLAZINE E.R. 1,000 MG TABLET (FP) PO SCH (21:59)
[2018-10-28] MEDS: HEPARIN NA (PORCINE) 5,000 UNITS/ML 1ML VIAL SQ SCH ×3 (05:26→21:14)
[2018-10-28 07:01] LABS: BASO % 0.3 % (0-2.0); EOS % 4.5 % (0-4.5); HEMATOCRIT 41.2 % (35.4-49); HEMOGLOBIN 13.8 GM/dL (11.7-16.9); LYMPH % 13.2 % (8-40); MCHC 33.5 g/dl (32.0-35.9); MEAN CELL VOLUME 101.6 fl (80-96); MONO % 12.2 % (3.8-10.2); NEUT % 69.8 % (42.8-82.8); PLATELET COUNT 134 K/MM3 (134-434); RBC 4.06 M/mm3 (4.00-5.60); WHITE BLOOD COUNT 6.9 K/mm3 (4.0-10.0)
[2018-10-28 07:24] LABS: ALBUMIN 3.1 g/dl (3.4-5.0); CALCIUM 8.4 mg/dL (8.5-10.1); CREATININE 0.9 mg/dL (0.55-1.3); MAGNESIUM 1.8 mg/dL (1.8-2.4); PHOSPHOROUS 2.8 mg/dL (2.5-4.9); POTASSIUM 3.9 mmol/L (3.5-5.1); TOT PROT 5.9 g/dl (6.4-8.2)
[2018-10-28] MEDS: ALBUTEROL SO4 2.5/IPRATROPIUM 0.5 INH SOL 3 ML VIAL.NEB. NEB SCH ×4 (07:41→21:13)
--- NOTE | 2018-10-28 08:58 | PN ---
Progress Note (short form) - Note Progress Note: Hospitalist to document today. CT infiltrate and nodules. Severe suprapubic pains HS
--- NOTE | 2018-10-28 09:29 | PN ---
Progress Note, Physician History of Present Illness: Dyspnea, pleurisy, fevers and chills resolving. - Current Medication List Current Medications: Active Medications Acetaminophen (Tylenol -) 650 mg PO Q6H PRN PRN Reason: PAIN OR FEVER Last Admin: 10/27/18 21:02 Dose: 650 mg Albuterol Sulfate (Ventolin 0.083% Nebulizer Soln -) 1 amp NEB Q4H PRN PRN Reason: SHORT OF BREATH/WHEEZING Albuterol/Ipratropium (Duoneb -) 1 amp NEB RQID [facility] Last Admin: 10/28/18 07:41 Dose: 1 amp Aspirin (Asa -) 81 mg PO DAILY [facility] Ezetimibe (Zetia -) 10 mg PO DAILY [facility] Heparin Sodium (Porcine) (Heparin -) 5,000 unit SQ TID [facility] Last Admin: 10/28/18 05:26 Dose: 5,000 unit Azithromycin (Zithromax 500mg Ivpb (Pre-Docked)) 500 mg in 250 mls @ 250 mls/ hr IVPB DAILY [facility] Ceftriaxone Sodium 1 gm/ (Dextrose) 50 mls @ 100 mls/hr IVPB DAILY [facility] Nebivolol (Bystolic -) 2.5 mg PO DAILY [facility] Non-Formulary Medication (Mirabegron [Myrbetriq]) 25 mg PO DAILY [facility] Ranitidine HCl (Zantac -) 150 mg PO BID [facility] Last Admin: 10/27/18 21:59 Dose: 150 mg Ranolazine (Ranexa -) 1,000 mg PO BID [facility] Last Admin: 10/27/18 21:59 Dose: 1,000 mg Tamsulosin HCl (Flomax -) 0.4 mg PO [facility] Last Admin: 10/27/18 21:59 Dose: 0.4 mg - Objective Vital Signs: Vital Signs Temperature 98.5 F 10/28/18 06:00 Pulse Rate 61 10/28/18 06:00 Respiratory Rate 18 10/28/18 06:00 Blood Pressure 117/51 L 10/28/18 06:00 O2 Sat by Pulse Oximetry (%) 96 10/28/18 00:00 Constitutional: Yes: No Distress, Calm Neck: Yes: Supple Cardiovascular: Yes: Regular Rate and Rhythm Respiratory: Yes: Regular, Diminished, On Nasal O2 Gastrointestinal: Yes: Normal Bowel Sounds, Soft, Abdomen, Obese Edema: No Labs: CBC, BMP 10/28/18 05:30 10/28/18 05:30 INR, PTT INR 1.15 (0.83-1.09) H 10/27/18 07:55 - ....Imaging EKG: Report Reviewed (Tele: NSR) Problem List - Problems (1) Coronary artery disease Code(s): I25.10 - ATHSCL HEART DISEASE OF [place] CORONARY ARTERY W/O ANG PCTRS Qualifiers: Coronary Disease-Associated Artery/Lesion type: [place] artery [place] vs. transplanted heart: [place] heart Associated angina: without angina Qualified Code(s): I25.10 - Atherosclerotic heart disease of [place] coronary artery without angina pectoris (2) S/P CABG (coronary artery bypass graft) Code(s): Z95.1 - PRESENCE OF AORTOCORONARY BYPASS GRAFT (3) Hyperlipidemia Code(s): E78.5 - HYPERLIPIDEMIA, UNSPECIFIED Qualifiers: Hyperlipidemia type: mixed hyperlipidemia Qualified Code(s): E78.2 - Mixed hyperlipidemia (4) Labile hypertension Code(s): R09.89 - OTH SYMPTOMS AND SIGNS INVOLVING THE CIRC AND RESP SYSTEMS (5) Chest pain Code(s): R07.9 - CHEST PAIN, UNSPECIFIED Qualifiers: Chest pain type: chest pain on breathing Qualified Code(s): R07.1 - Chest pain on breathing; R07.81 - Pleurodynia (6) Pneumonia Code(s): J18.9 - PNEUMONIA, UNSPECIFIED ORGANISM Qualifiers: Pneumonia type: due to unspecified organism Laterality: right Lung location: middle lobe of lung Qualified Code(s): J18.1 - Lobar pneumonia, unspecified organism (7) Diastolic dysfunction without heart failure Code(s): I51.89 - OTHER ILL-DEFINED HEART DISEASES Assessment/Plan October 15, 2017 Echo: Normal LV size and fxn LVEF 60-65%, mild MR, AR, TR RVSP 40 mmHg 1. Dyspnea, pleurisy, fevers and chills referable to RML PNA r/o sepsis 2. CAD s/p CABG, angina pectoris 3. Hypertensive heart disease with labile BP and postural hypotension 4. Diastolic dysfunction 5. Hyperlipidemia 6. Prostate ca s/p prostatectomy 7. H/o Crestor and fenofibrate-associated myalgias and arthralgias P:1. IV abx per C&S, BD, O2 as needed 2. Ruled out for [place] 3. Continue ASA 81 qd, Bystolic 2.5 qd, zetia 10 qd, Ranexa 1000 bid 4. DVT and GI prophylaxis
[2018-10-28] MEDS ORDERED: PATIENT'S OWN MEDICATION (NON-FORMULARY) (Mirabegron [Myrbetriq] 25 MG) PO SCH (10:00)
[2018-10-28] MEDS ORDERED: cefTRIAXone SODIUM 1 GM VIAL ONE (10:06)
[2018-10-28] MEDS ORDERED: DEXTROSE 5%-WATER - 50 ML IVPB ONE (10:06)
[2018-10-28] MEDS: CEFTRIAXONE 1 GM in DEXTROSE 5%-WATER - 50 ML IVPB SCH (10:39)
[2018-10-28] MEDS: RANOLAZINE E.R. 1,000 MG TABLET (FP) PO SCH ×2 (10:39→21:14)
[2018-10-28] MEDS: AZITHROMYCIN IVPB 500 MG/250 ML BAG IVPB SCH (10:39)
[2018-10-28] MEDS: ASPIRIN 81 MG CHEWABLE TABLETS PO SCH (10:39)
[2018-10-28] MEDS: predniSONE 20 MG TABLET (UD) PO SCH (10:39)
[2018-10-28] MEDS: NEBIVOLOL 2.5 MG TABLET (FP) PO SCH (10:40)
[2018-10-28] MEDS: RANITIDINE HCL 150 MG TABLET (FP) PO SCH ×2 (10:40→21:14)
--- NOTE | 2018-10-28 11:20 | CON.PULM ---
Consult Consult Specialty:: PULMONARY Referred by:: Dr Weathers Reason for Consultation:: pneumonia, lung nodules - History of Present Illness Chief Complaint: chills History of Present Illness: 73yo male with h/o HTN, hyperlipidemia, CAD, h/o prostate who was admitted with rigors and fevers. +nonproductive cough but he attributes to chronic sinusitis. Does hear wheezing occasionally. Not much relief from nebulizers. No chest pain or palpitations. He has been experiencing more shortness of breath recently. No history of asthma or COPD but sensitive to cigarette smoke and other triggers. He is a never smoker but has had significant 2nd hand exposure. CTA chest done which did not show evidence of PE but with RML infiltrate and lung nodules. - History Source History Provided By: Patient, Medical Record Limitations to Obtaining History: No Limitations - Past Medical History [employer]: Yes: Peripheral Neuropathy Cardio/Vascular: Yes: CAD, HTN, Hyperlipdemia - Past Surgical History Past Surgical History: Yes: CABG - Alcohol/Substance Use Hx Alcohol Use: No - Smoking History Smoking history: Never smoked Have you smoked in the past 12 months: No Aproximately how many cigarettes per day: 0 Home Medications - Allergies Allergies/Adverse Reactions: Allergies Allergy/AdvReac Type Severity Reaction Status Date / Time No Known Allergies Allergy Verified 10/27/18 07:06 - Home Medications Home Medications: Ambulatory Orders Acetaminophen [Tylenol .Regular Strength -] 650 mg PO Q4H PRN #0 tablet Ascorbic Acid [Vitamin C] 500 mg PO DAILY #0 tablet 11/13/12 Aspirin [ASA -] 81 mg PO DAILY #0 tab.chew 11/13/12 Cholecalciferol (Vitamin D3) [Vitamin D] 1,000 mg PO DAILY #0 tablet 11/13/12 Docosahexanoic Acid/Epa [Fish Oil Softgel] 1,000 mg PO DAILY #0 capsule Multivit-Min/FA/Lycopene/Lut [Centrum Silver Tablet] 1 tab PO DAILY #0 tablet Alprazolam DAILY PRN 10/27/18 Mirabegron [Myrbetriq] 25 mg PO DAILY 10/27/18 Nebivolol HCl [Bystolic] 2.5 mg PO DAILY 10/27/18 Ranitidine [Zantac -] 150 mg PO BID 10/27/18 Ranolazine [Ranexa -] 1,000 mg PO BID 10/27/18 Tamsulosin HCl [Flomax] 0.4 mg PO HS 10/27/18 Review of Systems - Review of Systems Constitutional: reports: Chills, Fever, Weakness Eyes: denies: Recent Change in Vision HENT: denies: Nasal Congestion, Throat Pain Neck: denies: Stiffness, Tenderness Cardiovascular: reports: Shortness of Breath. denies: Chest Pain, Edema Respiratory: reports: Cough, Wheezing. denies: Hemoptysis Gastrointestinal: denies: Abdominal Pain, Nausea, Vomiting Genitourinary: denies: Dysuria, Hematuria Neurological: denies: Dizziness, Headache Endocrine: denies: Unexplained Weight Loss Physical Exam Vital Sings: Vital Signs Temperature 98.5 F 10/28/18 06:00 Pulse Rate 61 10/28/18 06:00 Respiratory Rate 18 10/28/18 06:00 Blood Pressure 117/51 L 10/28/18 06:00 O2 Sat by Pulse Oximetry (%) 96 10/28/18 00:00 Constitutional: Yes: Calm Eyes: Yes: Conjunctiva Clear, EOM Intact HENT: Yes: Atraumatic, Normocephalic Neck: Yes: Supple, Trachea Midline Cardiovascular: Yes: Regular Rate and Rhythm Respiratory: Yes: Diminished (decreased breath sounds at the bases) ...Clubbing: No Gastrointestinal: Yes: Normal Bowel Sounds, Soft. No: Tenderness Edema: No Labs: CBC, BMP 10/28/18 05:30 10/28/18 05:30 Imaging - Results Chest X-ray: Report Reviewed, Image Reviewed Cat Scan: Report Reviewed, Image Reviewed (RML infiltrate, lung nodules) Problem List - Problems (1) Pneumonia Code(s): J18.9 - PNEUMONIA, UNSPECIFIED ORGANISM Qualifiers: Pneumonia type: due to unspecified organism Laterality: right Lung location: middle lobe of lung Qualified Code(s): J18.1 - Lobar pneumonia, unspecified organism Assessment/Plan Pneumonia Lung Nodules CAD s/p CABG LV Diastolic Dysfunction HTN Hyperlipidemia h/o Prostate Ca - continue antibiotics - f/u cultures - inhaled bronchodilators as needed - O2 as needed - will need outpt PFTs and f/u imaging to ensure resolution of infiltrate and nodules - DVT prophylaxis Thank you for this consult Pranay Mckeon MD
--- NOTE | 2018-10-28 11:22 | PN ---
Physical Exam: SUBJECTIVE: Patient seen and examined at bedside. Feels better today. Less short of breath today. OBJECTIVE: Vital Signs Temperature 98.5 F 10/28/18 06:00 Pulse Rate 61 10/28/18 06:00 Respiratory Rate 18 10/28/18 06:00 Blood Pressure 117/51 L 10/28/18 06:00 O2 Sat by Pulse Oximetry (%) 96 10/28/18 00:00 GENERAL: Awake, alert, and fully oriented, in no acute distress. EYES: extraocular movements intact, sclera anicteric, conjunctiva clear. EARS, NOSE, THROAT: Ears normal, nares patent. No facial tenderness or pressure. NECK: Normal range of motion, supple. LUNGS: Breath sounds equal, clear to auscultation bilaterally. HEART: Regular rate and rhythm, normal S1 and S2 ABDOMEN: Soft, nontender, not distended, normoactive bowel sounds LOWER EXTREMITIES: warm, well-perfused. No calf tenderness. Trace b/l LE pitting edema. NEUROLOGICAL: Cranial nerves II-XII intact. Normal speech. Gait not observed. PSYCHIATRIC: Cooperative. Good eye contact. Appropriate mood and affect. SKIN: Warm, dry Laboratory Results - last 24 hr 10/27/18 10/27/18 10/28/18 11:04 17:00 05:30 WBC 6.9 RBC 4.06 Hgb 13.8 Hct 41.2 MCV 101.6 H MCH 34.0 H MCHC 33.5 RDW 15.0 Plt Count 134 MPV 10.0 Absolute Neuts (auto) 4.8 Neutrophils % 69.8 D Lymphocytes % 13.2 D Monocytes % 12.2 H D Eosinophils % 4.5 D Basophils % 0.3 Nucleated RBC % 0 Sodium Potassium Chloride Carbon Dioxide Anion Gap BUN Creatinine Est GFR (CKD-EPI)AfAm Est GFR (CKD-EPI)NonAf Random Glucose Calcium Phosphorus Magnesium Total Bilirubin AST ALT Alkaline Phosphatase Troponin I < 0.02 Total Protein Albumin TSH Urine Color Yellow Urine Appearance Error Urine pH 5.0 Ur Specific [place] 1.024 Urine Protein Negative Urine Glucose (UA) Negative Urine Ketones Trace H Urine Blood Negative Urine Nitrite Negative Urine Bilirubin Negative Urine Urobilinogen 0.2 Ur Leukocyte Esterase Negative 10/28/18 05:30 WBC RBC Hgb Hct MCV MCH MCHC RDW Plt Count MPV Absolute Neuts (auto) Neutrophils % Lymphocytes % Monocytes % Eosinophils % Basophils % Nucleated RBC % Sodium 139 Potassium 3.9 Chloride 104 Carbon Dioxide 29 Anion Gap 7 L BUN 16 Creatinine 0.9 Est GFR (CKD-EPI)AfAm 96.49 Est GFR (CKD-EPI)NonAf 83.25 Random Glucose 89 Calcium 8.4 L Phosphorus 2.8 Magnesium 1.8 Total Bilirubin 1.0 AST 15 ALT 18 Alkaline Phosphatase 34 L Troponin I Total Protein 5.9 L Albumin 3.1 L TSH 0.47 Urine Color Urine Appearance Urine pH Ur Specific [place] Urine Protein Urine Glucose (UA) Urine Ketones Urine Blood Urine Nitrite Urine Bilirubin Urine Urobilinogen Ur Leukocyte Esterase Active Medications Generic Name Dose Route Start Last Admin Trade Name Freq PRN Reason Stop Dose Admin Acetaminophen 650 mg 10/27/18 19:05 10/27/18 21:02 Tylenol - PO 650 mg Q6H PRN Administration PAIN OR FEVER Albuterol Sulfate 1 amp 10/27/18 19:12 Ventolin 0.083% Nebulizer Soln - NEB Q4H PRN SHORT OF BREATH/WHEEZING Albuterol/Ipratropium 1 amp 10/27/18 20:00 10/28/18 07:41 Duoneb - NEB 1 amp RQID ALEAH Administration Aspirin 81 mg 10/28/18 10:00 10/28/18 10:39 Asa - PO 81 mg DAILY ALEAH Administration Ezetimibe 10 mg 10/28/18 10:00 Zetia - PO DAILY ALEAH Heparin Sodium (Porcine) 5,000 unit 10/27/18 22:00 10/28/18 05:26 Heparin - SQ 5,000 unit TID ALEAH Administration Azithromycin 500 mg in 250 mls @ 250 mls/hr 10/28/18 10:00 10/28/18 10:39 Zithromax 500mg Ivpb (Pre-Docked) IVPB 250 mls/hr DAILY ALEAH Administration Ceftriaxone Sodium 1 gm/ 50 mls @ 100 mls/hr 10/28/18 10:00 10/28/18 10:39 Dextrose IVPB 100 mls/hr DAILY ALEAH Administration Nebivolol 2.5 mg 10/28/18 10:00 10/28/18 10:40 Bystolic - PO 2.5 mg DAILY ALEAH Administration Non-Formulary Medication 25 mg 10/28/18 10:00 Mirabegron [Myrbetriq] PO DAILY ALEAH Prednisone 40 mg 10/28/18 10:00 10/28/18 10:39 Deltasone - PO 40 mg DAILY ALEAH Administration Ranitidine HCl 150 mg 10/27/18 22:00 10/28/18 10:40 Zantac - PO 150 mg BID ALEAH Administration Ranolazine 1,000 mg 10/27/18 22:00 10/28/18 10:39 Ranexa - PO 1,000 mg BID ALEAH Administration Tamsulosin HCl 0.4 mg 10/27/18 22:00 10/27/18 21:59 Flomax - PO 0.4 mg HS ALEAH Administration ASSESSMENT/PLAN: 73 y/o M w/PMH of HTN, HLD, CAD, prostate ca (s/p prostatectomy, in remission) presented to the ER with c/o chills and fevers and found to have infiltrate on RML and admitted for PNA. -SOB/fevers/chills secondary to community acquired pna -ceftriaxone and azithromycin -duonebs QID -O2 supplementation to keep oxygen saturation above 90% -prednisone added by pulm -tylenol for fevers -f/u urine and blood cultures. Flu negative -trops neg x2 -Respiratory request for pre and post oxygen saturation. -Macrocytosis -may be secondary to daily alcohol use -monitor CBC -HTN -bystolic 2.5mg -CAD -c/w asa 81 mg -GERD -Ranitidine 150 mg bid -BPH -c/w flomax -DVT ppx -heparin 5000 units sq q8h -FEN -No fluids -Monitor electrolytes -Cardiac diet -Dispo: Monitor on m/s (transfer off tele) Physical therapy request/assessment. Visit type - Emergency Visit Emergency Visit: Yes ED Registration Date: 10/28/18 Care time: The patient presented to the Emergency Department on the above date and was hospitalized for further evaluation of their emergent condition. - New Patient This patient is new to me today: No - Critical Care Critical Care patient: No
[2018-10-28] MEDS: EZETIMIBE 10 MG TABLET (FP) PO SCH (13:32)
--- NOTE | 2018-10-28 14:22 | PN ---
Teaching Attending Note Name of Resident: Fabián Phoenix ATTENDING PHYSICIAN STATEMENT I saw and evaluated the patient. I reviewed the resident's note and discussed the case with the resident. I agree with the resident's findings and plan as documented with exceptions below. SUBJECTIVE: Patient seen and examined. breathing improved, still dyspneic with exertion. Overall improved. OBJECTIVE: Vital Signs Period Temp Pulse Resp BP Sys/Neri Pulse Ox Last 24 Hr 97.8 F-99.7 F 60-88 18-20 106-130/48-74 90-97 Intake & Output 10/25/18 10/26/18 10/27/18 10/28/18 23:59 23:59 23:59 23:59 Intake Total 60 Output Total 1100 Balance -1040 Weight 225 lb General: lying in bed in no acute distress Neck: soft, supple, no JVD Chest: improved air entry bilaterally Abdomen:soft, NT, ND Extremities; mild tremors, no edema Home Medications Medication Instructions Recorded Acetaminophen [Tylenol .Regular 650 mg PO Q4H PRN #0 tablet 11/13/12 Strength -] Ascorbic Acid [Vitamin C] 500 mg PO DAILY #0 tablet 11/13/12 Aspirin [ASA -] 81 mg PO DAILY #0 tab.chew 11/13/12 Cholecalciferol (Vitamin D3) 1,000 mg PO DAILY #0 tablet 11/13/12 [Vitamin D] Docosahexanoic Acid/Epa [Fish Oil 1,000 mg PO DAILY #0 capsule 11/13/12 Softgel] Multivit-Min/FA/Lycopene/Lut 1 tab PO DAILY #0 tablet 11/13/12 [Centrum Silver Tablet] Alprazolam DAILY PRN 10/27/18 Mirabegron [Myrbetriq] 25 mg PO DAILY 10/27/18 Nebivolol HCl [Bystolic] 2.5 mg PO DAILY 10/27/18 Ranitidine [Zantac -] 150 mg PO BID 10/27/18 Ranolazine [Ranexa -] 1,000 mg PO BID 10/27/18 Tamsulosin HCl [Flomax] 0.4 mg PO HS 10/27/18 Active Medications Acetaminophen (Tylenol -) 650 mg PO Q6H PRN PRN Reason: PAIN OR FEVER Last Admin: 10/27/18 21:02 Dose: 650 mg Albuterol Sulfate (Ventolin 0.083% Nebulizer Soln -) 1 amp NEB Q4H PRN PRN Reason: SHORT OF BREATH/WHEEZING Albuterol/Ipratropium (Duoneb -) 1 amp NEB RQID [facility] Last Admin: 10/28/18 11:55 Dose: 1 amp Aspirin (Asa -) 81 mg PO DAILY [facility] Last Admin: 10/28/18 10:39 Dose: 81 mg Ezetimibe (Zetia -) 10 mg PO DAILY [facility] Last Admin: 10/28/18 13:32 Dose: 10 mg Heparin Sodium (Porcine) (Heparin -) 5,000 unit SQ TID [facility] Last Admin: 10/28/18 05:26 Dose: 5,000 unit Azithromycin (Zithromax 500mg Ivpb (Pre-Docked)) 500 mg in 250 mls @ 250 mls/ hr IVPB DAILY [facility] Last Admin: 10/28/18 10:39 Dose: 250 mls/hr Ceftriaxone Sodium 1 gm/ (Dextrose) 50 mls @ 100 mls/hr IVPB DAILY [facility] Last Admin: 10/28/18 10:39 Dose: 100 mls/hr Nebivolol (Bystolic -) 2.5 mg PO DAILY [facility] Last Admin: 10/28/18 10:40 Dose: 2.5 mg Non-Formulary Medication (Mirabegron [Myrbetriq]) 25 mg PO DAILY [facility] Prednisone (Deltasone -) 40 mg PO DAILY [facility] Last Admin: 10/28/18 10:39 Dose: 40 mg Ranitidine HCl (Zantac -) 150 mg PO BID [facility] Last Admin: 10/28/18 10:40 Dose: 150 mg Ranolazine (Ranexa -) 1,000 mg PO BID [facility] Last Admin: 10/28/18 10:39 Dose: 1,000 mg Tamsulosin HCl (Flomax -) 0.4 mg PO HS [facility] Last Admin: 10/27/18 21:59 Dose: 0.4 mg Laboratory Results - last 24 hr 10/27/18 10/28/18 10/28/18 17:00 05:30 05:30 WBC 6.9 RBC 4.06 Hgb 13.8 Hct 41.2 MCV 101.6 H MCH 34.0 H MCHC 33.5 RDW 15.0 Plt Count 134 MPV 10.0 Absolute Neuts (auto) 4.8 Neutrophils % 69.8 D Lymphocytes % 13.2 D Monocytes % 12.2 H D Eosinophils % 4.5 D Basophils % 0.3 Nucleated RBC % 0 Sodium 139 Potassium 3.9 Chloride 104 Carbon Dioxide 29 Anion Gap 7 L BUN 16 Creatinine 0.9 Est GFR (CKD-EPI)AfAm 96.49 Est GFR (CKD-EPI)NonAf 83.25 Random Glucose 89 Calcium 8.4 L Phosphorus 2.8 Magnesium 1.8 Total Bilirubin 1.0 AST 15 ALT 18 Alkaline Phosphatase 34 L Troponin I < 0.02 Total Protein 5.9 L Albumin 3.1 L TSH 0.47 Microbiology 10/28/18 01:00 Urine For Antigen Detection Legionella Antigen - Final 10/28/18 01:00 Urine For Antigen Detection Streptococcus pneumoniae Antigen (M - Final 10/27/18 11:04 Urine - Urine Clean Catch Urine Culture - Final 10/27/18 07:50 Blood - Peripheral Venous Blood Culture - Preliminary NO GROWTH OBTAINED AFTER 24 HOURS, INCUBATION TO CONTINUE FOR 4 DAYS. 10/27/18 07:55 Blood - Peripheral Venous Blood Culture - Preliminary NO GROWTH OBTAINED AFTER 24 HOURS, INCUBATION TO CONTINUE FOR 4 DAYS. ASSESSMENT AND PLAN: 73 yom with PMHx of HTN, HLD, CAD s/p CABG 03/1999(GARRISON->LAD, SVG->dRCA patent on 03/05/2015 cath), diastolic dysfunction, HTN heart disease with labile pressures, hyperlipidemia, prostate ca (s/p prostatectomy, in remission), admitted with RML CAP -RML CAP -Suspected acute bronchitis due to above -Atypical CP, likely from above -CAD s/p CABG -HTN -HLD -Diastolic HF, not in exacerbation -Prostate Ca, in remission -ETOH dependence Plan: Ceftriaxone/azithromycin. influenza swab neg. Urine PNA studies neg. Follow up blood cx. standing and prn nebs. Short course of prednisone, start today. Cardiology input noted, continue ASA/Zetia/Bystolic/Ranexa. Monitor for ETOH withdrawal. PT eval Anticipate home oxygen needs on dc. DVTPPX heparin Dispo d/c in 1-2 days if continues to improve.
[2018-10-28] MEDS: TAMSULOSIN HCL 0.4 MG CAP PO SCH (21:14)
[2018-10-29] MEDS: HEPARIN NA (PORCINE) 5,000 UNITS/ML 1ML VIAL SQ SCH ×2 (06:00→15:09)
[2018-10-29 07:10] LABS: BASO % 0.2 % (0-2.0); EOS % 0.1 % (0-4.5); HEMATOCRIT 40.4 % (35.4-49); HEMOGLOBIN 13.4 GM/dL (11.7-16.9); LYMPH % 11.4 % (8-40); MCH 33.6 pg (25.7-33.7); MCHC 33.3 g/dl (32.0-35.9); MEAN CELL VOLUME 101.1 fl (80-96); MEAN PLT VOLUME 9.8 fl (7.5-11.1); MONO % 9.9 % (3.8-10.2); NEUT % 78.4 % (42.8-82.8); PLATELET COUNT 156 K/MM3 (134-434); WHITE BLOOD COUNT 8.3 K/mm3 (4.0-10.0)
[2018-10-29] MEDS: ALBUTEROL SO4 2.5/IPRATROPIUM 0.5 INH SOL 3 ML VIAL.NEB. NEB SCH ×2 (07:40→11:35)
[2018-10-29 08:00] LABS: CREATININE 0.8 mg/dL (0.55-1.3); POTASSIUM 3.9 mmol/L (3.5-5.1)
--- NOTE | 2018-10-29 09:30 | PN ---
Progress Note, Physician History of Present Illness: Dyspnea, pleurisy, fevers and chills resolving. - Current Medication List Current Medications: Active Medications Acetaminophen (Tylenol -) 650 mg PO Q6H PRN PRN Reason: PAIN OR FEVER Last Admin: 10/27/18 21:02 Dose: 650 mg Albuterol Sulfate (Ventolin 0.083% Nebulizer Soln -) 1 amp NEB Q4H PRN PRN Reason: SHORT OF BREATH/WHEEZING Albuterol/Ipratropium (Duoneb -) 1 amp NEB RQID [facility] Last Admin: 10/28/18 21:13 Dose: 1 amp Aspirin (Asa -) 81 mg PO DAILY [facility] Last Admin: 10/28/18 10:39 Dose: 81 mg Ezetimibe (Zetia -) 10 mg PO DAILY [facility] Last Admin: 10/28/18 13:32 Dose: 10 mg Heparin Sodium (Porcine) (Heparin -) 5,000 unit SQ TID [facility] Last Admin: 10/29/18 06:00 Dose: Not Given Azithromycin (Zithromax 500mg Ivpb (Pre-Docked)) 500 mg in 250 mls @ 250 mls/ hr IVPB DAILY [facility] Last Admin: 10/28/18 10:39 Dose: 250 mls/hr Ceftriaxone Sodium 1 gm/ (Dextrose) 50 mls @ 100 mls/hr IVPB DAILY [facility] Last Admin: 10/28/18 10:39 Dose: 100 mls/hr Nebivolol (Bystolic -) 2.5 mg PO DAILY [facility] Last Admin: 10/28/18 10:40 Dose: 2.5 mg Non-Formulary Medication (Mirabegron [Myrbetriq]) 25 mg PO DAILY [facility] Prednisone (Deltasone -) 40 mg PO DAILY [facility] Last Admin: 10/28/18 10:39 Dose: 40 mg Ranitidine HCl (Zantac -) 150 mg PO BID [facility] Last Admin: 10/28/18 21:14 Dose: 150 mg Ranolazine (Ranexa -) 1,000 mg PO BID [facility] Last Admin: 10/28/18 21:14 Dose: 1,000 mg Tamsulosin HCl (Flomax -) 0.4 mg PO HS [facility] Last Admin: 10/28/18 21:14 Dose: 0.4 mg - Objective Vital Signs: Vital Signs Temperature 97.6 F 10/29/18 06:00 Pulse Rate 55 L 10/29/18 06:00 Respiratory Rate 20 10/29/18 06:00 Blood Pressure 137/70 10/29/18 06:00 O2 Sat by Pulse Oximetry (%) 96 10/28/18 21:00 Labs: CBC, BMP 10/29/18 05:30 10/29/18 05:30 INR, PTT INR 1.15 (0.83-1.09) H 10/27/18 07:55 Problem List - Problems (1) Coronary artery disease Code(s): I25.10 - ATHSCL HEART DISEASE OF [place] CORONARY ARTERY W/O ANG PCTRS Qualifiers: Coronary Disease-Associated Artery/Lesion type: [place] artery [place] vs. transplanted heart: [place] heart Associated angina: without angina Qualified Code(s): I25.10 - Atherosclerotic heart disease of [place] coronary artery without angina pectoris (2) S/P CABG (coronary artery bypass graft) Code(s): Z95.1 - PRESENCE OF AORTOCORONARY BYPASS GRAFT (3) Hyperlipidemia Code(s): E78.5 - HYPERLIPIDEMIA, UNSPECIFIED Qualifiers: Hyperlipidemia type: mixed hyperlipidemia Qualified Code(s): E78.2 - Mixed hyperlipidemia (4) Labile hypertension Code(s): R09.89 - OTH SYMPTOMS AND SIGNS INVOLVING THE CIRC AND RESP SYSTEMS (5) Chest pain Code(s): R07.9 - CHEST PAIN, UNSPECIFIED Qualifiers: Chest pain type: chest pain on breathing Qualified Code(s): R07.1 - Chest pain on breathing; R07.81 - Pleurodynia (6) Pneumonia Code(s): J18.9 - PNEUMONIA, UNSPECIFIED ORGANISM Qualifiers: Pneumonia type: due to unspecified organism Laterality: right Lung location: middle lobe of lung Qualified Code(s): J18.1 - Lobar pneumonia, unspecified organism (7) Diastolic dysfunction without heart failure Code(s): I51.89 - OTHER ILL-DEFINED HEART DISEASES Assessment/Plan October 15, 2017 Echo: Normal LV size and fxn LVEF 60-65%, mild MR, AR, TR RVSP 40 mmHg 1. Dyspnea, pleurisy, fevers and chills referable to RML PNA r/o sepsis 2. CAD s/p CABG, angina pectoris 3. Hypertensive heart disease with labile BP and postural hypotension 4. Diastolic dysfunction 5. Hyperlipidemia 6. Prostate ca s/p prostatectomy 7. H/o Crestor and fenofibrate-associated myalgias and arthralgias P:1. IV abx per C&S, BD, O2 as needed 2. Ruled out for [place] 3. Continue ASA 81 qd, Bystolic 2.5 qd, zetia 10 qd, Ranexa 1000 bid 4. DVT and GI prophylaxis
[2018-10-29] MEDS ORDERED: cefTRIAXone SODIUM 1 GM VIAL ONE (09:46)
[2018-10-29] MEDS ORDERED: DEXTROSE 5%-WATER - 50 ML IVPB ONE (09:47)
--- NOTE | 2018-10-29 09:58 | PN ---
Progress Note (short form) - Note Progress Note: Hospitalist to document today. Better breathing. Will F/U with post discharge. Admits to some wheezing at home and asking for Nebulizer on discharge.
[2018-10-29] MEDS: ASPIRIN 81 MG CHEWABLE TABLETS PO SCH (10:10)
[2018-10-29] MEDS: predniSONE 20 MG TABLET (UD) PO SCH (10:11)
[2018-10-29] MEDS: NEBIVOLOL 2.5 MG TABLET (FP) PO SCH (10:11)
[2018-10-29] MEDS: CEFTRIAXONE 1 GM in DEXTROSE 5%-WATER - 50 ML IVPB SCH (10:12)
[2018-10-29] MEDS: RANOLAZINE E.R. 1,000 MG TABLET (FP) PO SCH (10:12)
[2018-10-29] MEDS: RANITIDINE HCL 150 MG TABLET (FP) PO SCH (10:13)
[2018-10-29] MEDS: EZETIMIBE 10 MG TABLET (FP) PO SCH (10:14)
[2018-10-29] MEDS: AZITHROMYCIN IVPB 500 MG/250 ML BAG IVPB SCH (10:14)
--- NOTE | 2018-10-29 10:39 | PN ---
Progress Note, Physician History of Present Illness: Dyspnea, pleurisy, fevers and chills resolving. - Current Medication List Current Medications: Active Medications Acetaminophen (Tylenol -) 650 mg PO Q6H PRN PRN Reason: PAIN OR FEVER Last Admin: 10/27/18 21:02 Dose: 650 mg Albuterol Sulfate (Ventolin 0.083% Nebulizer Soln -) 1 amp NEB Q4H PRN PRN Reason: SHORT OF BREATH/WHEEZING Albuterol/Ipratropium (Duoneb -) 1 amp NEB RQID [facility] Last Admin: 10/29/18 07:40 Dose: 1 amp Aspirin (Asa -) 81 mg PO DAILY [facility] Last Admin: 10/29/18 10:10 Dose: 81 mg Ezetimibe (Zetia -) 10 mg PO DAILY [facility] Last Admin: 10/29/18 10:14 Dose: 10 mg Heparin Sodium (Porcine) (Heparin -) 5,000 unit SQ TID [facility] Last Admin: 10/29/18 06:00 Dose: Not Given Azithromycin (Zithromax 500mg Ivpb (Pre-Docked)) 500 mg in 250 mls @ 250 mls/ hr IVPB DAILY [facility] Last Admin: 10/29/18 10:14 Dose: 250 mls/hr Ceftriaxone Sodium 1 gm/ (Dextrose) 50 mls @ 100 mls/hr IVPB DAILY [facility] Last Admin: 10/29/18 10:12 Dose: 100 mls/hr Nebivolol (Bystolic -) 2.5 mg PO DAILY [facility] Last Admin: 10/29/18 10:11 Dose: 2.5 mg Non-Formulary Medication (Mirabegron [Myrbetriq]) 25 mg PO DAILY [facility] Prednisone (Deltasone -) 40 mg PO DAILY [facility] Last Admin: 10/29/18 10:11 Dose: 40 mg Ranitidine HCl (Zantac -) 150 mg PO BID [facility] Last Admin: 10/29/18 10:13 Dose: 150 mg Ranolazine (Ranexa -) 1,000 mg PO BID [facility] Last Admin: 10/29/18 10:12 Dose: 1,000 mg Tamsulosin HCl (Flomax -) 0.4 mg PO HS [facility] Last Admin: 10/28/18 21:14 Dose: 0.4 mg - Objective Vital Signs: Vital Signs Temperature 97.6 F 10/29/18 06:00 Pulse Rate 55 L 10/29/18 06:00 Respiratory Rate 20 10/29/18 06:00 Blood Pressure 137/70 10/29/18 06:00 O2 Sat by Pulse Oximetry (%) 96 10/28/18 21:00 Constitutional: Yes: No Distress, Calm Neck: Yes: Supple Cardiovascular: Yes: Regular Rate and Rhythm Respiratory: Yes: Regular, CTA Bilaterally, On Nasal O2 Gastrointestinal: Yes: Normal Bowel Sounds, Soft Edema: No Labs: CBC, BMP 10/29/18 05:30 10/29/18 05:30 INR, PTT INR 1.15 (0.83-1.09) H 10/27/18 07:55 - ....Imaging EKG: Report Reviewed (Tele: NSR) Problem List - Problems (1) Coronary artery disease Code(s): I25.10 - ATHSCL HEART DISEASE OF [place] CORONARY ARTERY W/O ANG PCTRS Qualifiers: Coronary Disease-Associated Artery/Lesion type: [place] artery [place] vs. transplanted heart: [place] heart Associated angina: without angina Qualified Code(s): I25.10 - Atherosclerotic heart disease of [place] coronary artery without angina pectoris (2) S/P CABG (coronary artery bypass graft) Code(s): Z95.1 - PRESENCE OF AORTOCORONARY BYPASS GRAFT (3) Hyperlipidemia Code(s): E78.5 - HYPERLIPIDEMIA, UNSPECIFIED Qualifiers: Hyperlipidemia type: mixed hyperlipidemia Qualified Code(s): E78.2 - Mixed hyperlipidemia (4) Labile hypertension Code(s): R09.89 - OTH SYMPTOMS AND SIGNS INVOLVING THE CIRC AND RESP SYSTEMS (5) Chest pain Code(s): R07.9 - CHEST PAIN, UNSPECIFIED Qualifiers: Chest pain type: chest pain on breathing Qualified Code(s): R07.1 - Chest pain on breathing; R07.81 - Pleurodynia (6) Pneumonia Code(s): J18.9 - PNEUMONIA, UNSPECIFIED ORGANISM Qualifiers: Pneumonia type: due to unspecified organism Laterality: right Lung location: middle lobe of lung Qualified Code(s): J18.1 - Lobar pneumonia, unspecified organism (7) Diastolic dysfunction without heart failure Code(s): I51.89 - OTHER ILL-DEFINED HEART DISEASES Assessment/Plan October 15, 2017 Echo: Normal LV size and fxn LVEF 60-65%, mild MR, AR, TR RVSP 40 mmHg 1. Dyspnea, pleurisy, fevers and chills referable to RML PNA r/o sepsis 2. CAD s/p CABG, angina pectoris 3. Hypertensive heart disease with labile BP and postural hypotension 4. Diastolic dysfunction 5. Hyperlipidemia 6. Prostate ca s/p prostatectomy 7. H/o Crestor and fenofibrate-associated myalgias and arthralgias P:1. IV abx per C&S, BD, O2 as needed, oral steroid taper 2. Ruled out for [place] 3. Continue ASA 81 qd, Bystolic 2.5 qd, zetia 10 qd, Ranexa 1000 bid 4. DVT and GI prophylaxis
--- NOTE | 2018-10-29 11:17 | PN ---
Progress Note, Physician History of Present Illness: PULMONARY ALERT,NO DISTRESS,-CP,-SOB - Current Medication List Current Medications: Active Medications Acetaminophen (Tylenol -) 650 mg PO Q6H PRN PRN Reason: PAIN OR FEVER Last Admin: 10/27/18 21:02 Dose: 650 mg Albuterol Sulfate (Ventolin 0.083% Nebulizer Soln -) 1 amp NEB Q4H PRN PRN Reason: SHORT OF BREATH/WHEEZING Albuterol/Ipratropium (Duoneb -) 1 amp NEB RQID [facility] Last Admin: 10/29/18 07:40 Dose: 1 amp Aspirin (Asa -) 81 mg PO DAILY [facility] Last Admin: 10/29/18 10:10 Dose: 81 mg Ezetimibe (Zetia -) 10 mg PO DAILY [facility] Last Admin: 10/29/18 10:14 Dose: 10 mg Heparin Sodium (Porcine) (Heparin -) 5,000 unit SQ TID [facility] Last Admin: 10/29/18 06:00 Dose: Not Given Azithromycin (Zithromax 500mg Ivpb (Pre-Docked)) 500 mg in 250 mls @ 250 mls/ hr IVPB DAILY [facility] Last Admin: 10/29/18 10:14 Dose: 250 mls/hr Ceftriaxone Sodium 1 gm/ (Dextrose) 50 mls @ 100 mls/hr IVPB DAILY [facility] Last Admin: 10/29/18 10:12 Dose: 100 mls/hr Nebivolol (Bystolic -) 2.5 mg PO DAILY [facility] Last Admin: 10/29/18 10:11 Dose: 2.5 mg Non-Formulary Medication (Mirabegron [Myrbetriq]) 25 mg PO DAILY [facility] Prednisone (Deltasone -) 40 mg PO DAILY [facility] Last Admin: 10/29/18 10:11 Dose: 40 mg Ranitidine HCl (Zantac -) 150 mg PO BID [facility] Last Admin: 10/29/18 10:13 Dose: 150 mg Ranolazine (Ranexa -) 1,000 mg PO BID [facility] Last Admin: 10/29/18 10:12 Dose: 1,000 mg Tamsulosin HCl (Flomax -) 0.4 mg PO HS [facility] Last Admin: 10/28/18 21:14 Dose: 0.4 mg - Objective Vital Signs: Vital Signs Temperature 97.6 F 10/29/18 06:00 Pulse Rate 55 L 10/29/18 06:00 Respiratory Rate 20 10/29/18 06:00 Blood Pressure 137/70 10/29/18 06:00 O2 Sat by Pulse Oximetry (%) 96 10/28/18 21:00 Constitutional: Yes: Well Nourished, Obese Eyes: Yes: WNL HENT: Yes: WNL Neck: Yes: WNL Cardiovascular: Yes: Regular Rate and Rhythm, S1, S2 Respiratory: Yes: Rales (FEW CRACKLES) Gastrointestinal: Yes: Normal Bowel Sounds, Soft Extremities: Yes: WNL Edema: Yes Edema: LLE: Trace, RLE: Trace Labs: CBC, BMP 10/29/18 05:30 10/29/18 05:30 Problem List - Problems (1) Coronary artery disease Code(s): I25.10 - ATHSCL HEART DISEASE OF [place] CORONARY ARTERY W/O ANG PCTRS Qualifiers: Coronary Disease-Associated Artery/Lesion type: [place] artery [place] vs. transplanted heart: [place] heart Associated angina: without angina Qualified Code(s): I25.10 - Atherosclerotic heart disease of [place] coronary artery without angina pectoris (2) Hyperlipidemia Code(s): E78.5 - HYPERLIPIDEMIA, UNSPECIFIED Qualifiers: Hyperlipidemia type: mixed hyperlipidemia Qualified Code(s): E78.2 - Mixed hyperlipidemia (3) S/P CABG (coronary artery bypass graft) Code(s): Z95.1 - PRESENCE OF AORTOCORONARY BYPASS GRAFT (4) Diastolic dysfunction without heart failure Code(s): I51.89 - OTHER ILL-DEFINED HEART DISEASES Assessment/Plan Problem List - Problems (1) Pneumonia Code(s): J18.9 - PNEUMONIA, UNSPECIFIED ORGANISM Qualifiers: Pneumonia type: due to unspecified organism Laterality: right Lung location: middle lobe of lung Qualified Code(s): J18.1 - Lobar pneumonia, unspecified organism Assessment/Plan Pneumonia Lung Nodules CAD s/p CABG LV Diastolic Dysfunction HTN Hyperlipidemia h/o Prostate Ca - continue antibiotics - inhaled bronchodilators as needed - O2 as needed - will need outpt PFTs and f/u imaging to ensure resolution of infiltrate and nodules - DVT prophylaxis DR HUNTER
--- NOTE | 2018-10-29 11:51 | PN ---
Teaching Attending Note Name of Resident: Fabián Phoenix ATTENDING PHYSICIAN STATEMENT I saw and evaluated the patient. I reviewed the resident's note and discussed the case with the resident. I agree with the resident's findings and plan as documented with exceptions below. SUBJECTIVE: Patient seen and examined. Breathing improved, occasional chest congestion but improved. Does improve long h/o allergic rhinitis/sinusitis with occasional bronchitis. OBJECTIVE: Vital Signs Period Temp Pulse Resp BP Sys/Neri Pulse Ox Last 24 Hr 97.6 F-98.3 F 55-88 16-20 120-142/66-80 90-96 Intake & Output 10/26/18 10/27/18 10/28/18 10/29/18 23:59 23:59 23:59 23:59 Intake Total 660 0 Output Total 1100 Balance -440 0 Weight 225 lb General: sitting in bed, no acute distress, no tachypnea or use of accessory muscles of respiration Chest: improved air entry, few bibasilar rales, no wheezing Abdomen;Soft, Obese, NT Extremities: no edema or tremors Home Medications Medication Instructions Recorded Acetaminophen [Tylenol .Regular 650 mg PO Q4H PRN #0 tablet 11/13/12 Strength -] Ascorbic Acid [Vitamin C] 500 mg PO DAILY #0 tablet 11/13/12 Aspirin [ASA -] 81 mg PO DAILY #0 tab.chew 11/13/12 Cholecalciferol (Vitamin D3) 1,000 mg PO DAILY #0 tablet 11/13/12 [Vitamin D] Docosahexanoic Acid/Epa [Fish Oil 1,000 mg PO DAILY #0 capsule 11/13/12 Softgel] Multivit-Min/FA/Lycopene/Lut 1 tab PO DAILY #0 tablet 11/13/12 [Centrum Silver Tablet] Alprazolam 0.5 mg PO DAILY PRN 10/27/18 Mirabegron [Myrbetriq] 25 mg PO DAILY 10/27/18 Nebivolol HCl [Bystolic] 2.5 mg PO DAILY 10/27/18 Ranitidine [Zantac -] 150 mg PO BID 10/27/18 Ranolazine [Ranexa -] 1,000 mg PO BID 10/27/18 Tamsulosin HCl [Flomax] 0.4 mg PO HS 10/27/18 Albuterol 0.083% Nebulizer Kate 1 amp NEB BID PRN #1 unit 10/29/18 [Ventolin 0.083% Nebulizer Soln -] Albuterol 0.083% Nebulizer Kate 1 amp NEB Q4H PRN amp 10/29/18 [Ventolin 0.083% Nebulizer Soln -] Aspirin [ASA -] 81 mg PO DAILY tab.chew 10/29/18 Ezetimibe [Zetia -] 10 mg PO DAILY tablet 10/29/18 Levofloxacin [Levaquin] 500 mg PO DAILY #4 tablet 10/29/18 Nebivolol [Bystolic -] 2.5 mg PO DAILY tab 10/29/18 Nebulizer [Aeroeclipse II] 1 each MC DAILY PRN #1 each 10/29/18 Prednisone See Taper PO ASDIR #20 tablet 10/29/18 Ranolazine [Ranexa -] 1,000 mg PO BID tab 10/29/18 Active Medications Acetaminophen (Tylenol -) 650 mg PO Q6H PRN PRN Reason: PAIN OR FEVER Last Admin: 10/27/18 21:02 Dose: 650 mg Albuterol Sulfate (Ventolin 0.083% Nebulizer Soln -) 1 amp NEB Q4H PRN PRN Reason: SHORT OF BREATH/WHEEZING Albuterol/Ipratropium (Duoneb -) 1 amp NEB RQID [facility] Last Admin: 10/29/18 07:40 Dose: 1 amp Aspirin (Asa -) 81 mg PO DAILY [facility] Last Admin: 10/29/18 10:10 Dose: 81 mg Ezetimibe (Zetia -) 10 mg PO DAILY [facility] Last Admin: 10/29/18 10:14 Dose: 10 mg Heparin Sodium (Porcine) (Heparin -) 5,000 unit SQ TID [facility] Last Admin: 10/29/18 06:00 Dose: Not Given Azithromycin (Zithromax 500mg Ivpb (Pre-Docked)) 500 mg in 250 mls @ 250 mls/ hr IVPB DAILY [facility] Last Admin: 10/29/18 10:14 Dose: 250 mls/hr Ceftriaxone Sodium 1 gm/ (Dextrose) 50 mls @ 100 mls/hr IVPB DAILY [facility] Last Admin: 10/29/18 10:12 Dose: 100 mls/hr Nebivolol (Bystolic -) 2.5 mg PO DAILY [facility] Last Admin: 10/29/18 10:11 Dose: 2.5 mg Non-Formulary Medication (Mirabegron [Myrbetriq]) 25 mg PO DAILY [facility] Prednisone (Deltasone -) 40 mg PO DAILY [facility] Last Admin: 10/29/18 10:11 Dose: 40 mg Ranitidine HCl (Zantac -) 150 mg PO BID [facility] Last Admin: 10/29/18 10:13 Dose: 150 mg Ranolazine (Ranexa -) 1,000 mg PO BID [facility] Last Admin: 10/29/18 10:12 Dose: 1,000 mg Tamsulosin HCl (Flomax -) 0.4 mg PO HS [facility] Last Admin: 10/28/18 21:14 Dose: 0.4 mg Laboratory Results - last 24 hr 10/29/18 10/29/18 05:30 05:30 WBC 8.3 RBC 4.00 Hgb 13.4 Hct 40.4 MCV 101.1 H MCH 33.6 MCHC 33.3 RDW 15.0 Plt Count 156 MPV 9.8 Absolute Neuts (auto) 6.5 Neutrophils % 78.4 Lymphocytes % 11.4 Monocytes % 9.9 Eosinophils % 0.1 D Basophils % 0.2 Nucleated RBC % 0 Sodium 139 Potassium 3.9 Chloride 103 Carbon Dioxide 28 Anion Gap 8 BUN 18 Creatinine 0.8 Est GFR (CKD-EPI)AfAm 101.28 Est GFR (CKD-EPI)NonAf 87.38 Random Glucose 114 H Calcium 9.0 Magnesium 2.0 Microbiology 10/27/18 07:55 Blood - Peripheral Venous Blood Culture - Preliminary NO GROWTH OBTAINED AFTER 48 HOURS, INCUBATION TO CONTINUE FOR 3 DAYS. 10/27/18 07:50 Blood - Peripheral Venous Blood Culture - Preliminary NO GROWTH OBTAINED AFTER 48 HOURS, INCUBATION TO CONTINUE FOR 3 DAYS. 10/28/18 01:00 Urine For Antigen Detection Legionella Antigen - Final 10/28/18 01:00 Urine For Antigen Detection Streptococcus pneumoniae Antigen (M - Final 10/27/18 11:04 Urine - Urine Clean Catch Urine Culture - Final ASSESSMENT AND PLAN: 73 yom with PMHx of HTN, HLD, CAD s/p CABG 03/1999(GARRISON->LAD, SVG->dRCA patent on 03/05/2015 cath), diastolic dysfunction, HTN heart disease with labile pressures, hyperlipidemia, prostate ca (s/p prostatectomy, in remission), admitted with RML CAP -RML CAP -Acute bronchitis -Atypical CP, likely from above -CAD s/p CABG -HTN -HLD -Diastolic HF, not in exacerbation -Prostate Ca, in remission -ETOH dependence Plan: Clinically improved. transition to levaquin for 4 more days Short steroid taper. Patient requests nebs. Discussed need for outpatient pulmonary follow up and repeat chest imaging. Also strictly discussed no smoking with oxygen, given fire hazard. Cardiology/pulmonary input noted. Continue ASA/Zetia/Bystolic/Ranexa. No concerns for alcohol withdrawal. Home oxygen arranged. d/c home with services/home oxygen today on po abx/steroids with outpatient pulmonary follow up.
[2018-10-29 15:09] VITALS: BP 122/67; PULSE 55; TEMP 97.9
--- NOTE | 2018-10-29 15:20 | DS ---
Physical Exam: SUBJECTIVE: Patient seen and examined at bedside. Feels better today. Breathing is improved. OBJECTIVE: Vital Signs Period Temp Pulse Resp BP Sys/Neri Pulse Ox Last 24 Hr 97.6 F-98.0 F 55-73 16-20 120-137/66-70 94-96 PHYSICAL EXAM GENERAL: Awake, alert, and fully oriented, in no acute distress. EYES: extraocular movements intact, sclera anicteric, conjunctiva clear. EARS, NOSE, THROAT: Ears normal, nares patent. No facial tenderness or pressure. NECK: Normal range of motion, supple. LUNGS: Breath sounds equal, clear to auscultation bilaterally. HEART: Regular rate and rhythm, normal S1 and S2 ABDOMEN: Soft, nontender, not distended, normoactive bowel sounds LOWER EXTREMITIES: warm, well-perfused. No calf tenderness. Trace b/l LE pitting edema. NEUROLOGICAL: Cranial nerves II-XII intact. Normal speech. Gait not observed. PSYCHIATRIC: Cooperative. Good eye contact. Appropriate mood and affect. SKIN: Warm, dry LABS Laboratory Results - last 24 hr 10/29/18 10/29/18 05:30 05:30 WBC 8.3 RBC 4.00 Hgb 13.4 Hct 40.4 MCV 101.1 H MCH 33.6 MCHC 33.3 RDW 15.0 Plt Count 156 MPV 9.8 Absolute Neuts (auto) 6.5 Neutrophils % 78.4 Lymphocytes % 11.4 Monocytes % 9.9 Eosinophils % 0.1 D Basophils % 0.2 Nucleated RBC % 0 Sodium 139 Potassium 3.9 Chloride 103 Carbon Dioxide 28 Anion Gap 8 BUN 18 Creatinine 0.8 Est GFR (CKD-EPI)AfAm 101.28 Est GFR (CKD-EPI)NonAf 87.38 Random Glucose 114 H Calcium 9.0 Magnesium 2.0 HOSPITAL COURSE: Date of Admission:10/28/18 Date of Discharge: 10/29/18 73 y/o M w/PMH of HTN, HLD, CAD, prostate ca (s/p prostatectomy, in remission) presented to the ER with c/o chills and fevers and SOB. Pt had chest CTA which revealed right middle lobe infiltrate. He was treated with duonebs, steroids, and ceftriaxone and azithromycin. He continued to improve during admission but on was found to be hypoxic on room air to 88% when off nasal cannula. He was discharged with home oxygen at 2-3L and with levaquin for an additional 4 days after discharge. He is to follow with his PCP within 1 week and with pulmonology (Dr. Mckeon) within 1-2 weeks as well. Minutes to complete discharge: 45 Discharge Summary Reason For Visit: CHEST PAIN,PNEUMONIA Current Active Problems Chest pain (Acute) Coronary artery disease (Acute) Diastolic dysfunction without heart failure (Acute) Hyperlipidemia (Acute) Labile hypertension (Acute) Pneumonia (Acute) S/P CABG (coronary artery bypass graft) (Acute) Condition: Stable - Instructions Diet, Activity, Other Instructions: You were admitted for trouble breathing and found to have pneumonia. You were treated with antibiotics and steroids to help with your breathing. Medications: -Continue taking your antibiotics until finished. You will need to take Levaquin for an additional 4 days. -You will be given a prednisone taper to take. -Take 40 mg prednisone day 1 and 2 after discharge starting tomorrow on 10/30 and 10/31 -Take 30 mg prednisone for 2 days on 11/01 ang 11/02 -Take 20 mg prednisone for 2 days 11/03 and 11/04 -Take 10 mg prednisone for 2 days 11/05 and 11/06, then off. -You will also be prescribed a nebulizer machine and albuterol medication to be used with the nebulizer to be used if you have shortness of breath. -You will also be sent home with oxygen. You can use a pulse oximetry to check your oxygen saturations and keep a record of them to show your doctors for further assessment of oxygen need. Use 2-3 liters oxygen continuous, with rest and activity till next doctor visit. NO SMOKING WITH OXYGEN, IS A FIRE HAZARD. Instructions: -Follow up with your primary care doctor within a week -Follow up with a piper helper within 1-2 weeks. You will also benefit from having a sleep study done to assess for obstructive sleep apnea. You will need follow up CT scan of your chest in 3-4 weeks, please discuss with your doctor. -Follow up with your bufferer within 1-2 weeks. If you develop fevers, chills, change in mental status or worsening of your current symptoms come back to the hospital. Referrals: Gladis Joel MD [Staff Physician] - Ramiro Alejandro MD [Primary Care Provider] - Pranay Mckeon MD, MD [Staff Physician] - Disposition: VNS/HOME HEALTH CARE - Home Medications Comprehensive Discharge Medication List: Ambulatory Orders Acetaminophen [Tylenol .Regular Strength -] 650 mg PO Q4H PRN #0 tablet Ascorbic Acid [Vitamin C] 500 mg PO DAILY #0 tablet 11/13/12 Aspirin [ASA -] 81 mg PO DAILY #0 tab.chew 11/13/12 Cholecalciferol (Vitamin D3) [Vitamin D] 1,000 mg PO DAILY #0 tablet 11/13/12 Docosahexanoic Acid/Epa [Fish Oil Softgel] 1,000 mg PO DAILY #0 capsule Multivit-Min/FA/Lycopene/Lut [Centrum Silver Tablet] 1 tab PO DAILY #0 tablet Alprazolam 0.5 mg PO DAILY PRN 10/27/18 Mirabegron [Myrbetriq] 25 mg PO DAILY 10/27/18 Nebivolol HCl [Bystolic] 2.5 mg PO DAILY 10/27/18 Ranitidine [Zantac -] 150 mg PO BID 10/27/18 Ranolazine [Ranexa -] 1,000 mg PO BID 10/27/18 Tamsulosin HCl [Flomax] 0.4 mg PO HS 10/27/18 Albuterol 0.083% Nebulizer Kate [Ventolin 0.083% Nebulizer Soln -] 1 amp NEB Q4H PRN amp 10/29/18 Ezetimibe [Zetia -] 10 mg PO DAILY tablet 10/29/18 Levofloxacin [Levaquin] 500 mg PO DAILY #4 tablet 10/29/18 Nebivolol [Bystolic -] 2.5 mg PO DAILY tab 10/29/18 Nebulizer [Aeroeclipse II] 1 each MC DAILY PRN #1 each 10/29/18 Prednisone See Taper PO ASDIR #20 tablet 10/29/18 Ranolazine [Ranexa -] 1,000 mg PO BID tab 10/29/18 This patient is new to me today: No Emergency Visit: Yes ED Registration Date: 10/28/18 Care time: The patient presented to the Emergency Department on the above date and was hospitalized for further evaluation of their emergent condition. Critical Care patient: No - Discharge Referral Referred to [facility] No
== END 2018-10-29 15:48 | disposition home health service (06) | DRG 194 ==
LOC: JER 06:27 → JERBED 10:29 → J4W 15:19 → OBSVTOIN 10-28 09:50
PROVIDERS: ADMIT Hospitalist; ATTEND Hospitalist
DX: J18.9 Pneumonia, unspecified organism (principal); I50.32 Chronic diastolic (congestive) heart failure; J98.11 Atelectasis; I11.0 Hypertensive heart disease with heart failure; I95.1 Orthostatic hypotension; R07.89 Other chest pain; E66.9 Obesity, unspecified; Z68.32 Body mass index [BMI] 32.0-32.9, adult; D75.89 Other specified diseases of blood and blood-forming organs; E78.5 Hyperlipidemia, unspecified; I25.10 Atherosclerotic heart disease of native coronary artery without angina pectoris; Z85.46 Personal history of malignant neoplasm of prostate; Z90.79 Acquired absence of other genital organ(s); Z95.1 Presence of aortocoronary bypass graft; K21.9 Gastro-esophageal reflux disease without esophagitis; N40.0 Benign prostatic hyperplasia without lower urinary tract symptoms; F10.20 Alcohol dependence, uncomplicated; R91.8 Other nonspecific abnormal finding of lung field; J20.9 Acute bronchitis, unspecified
CPT/HCPCS: 36415; 71045-TC-FY; 71275-TC; 80048; 80053; 81003; 82550; 82553; 82803; 83605; 83735; 83880; 84100; 84443; 84484; 85025; 85379; 85610; 85730; 87040; 87086; 87804; 87899; 93005; 93010; 94640; 94761; 97116-GP; 97161-GP; 99284-25; G0378; J0131; J1644

== ENCOUNTER 2018-12-13 14:18 | Emergency (ER) | payer OTHER, BC ==
[2018-12-13 14:31] VITALS: TEMP 98.7; BMI 32.1
[2018-12-13] MEDS ORDERED: MECLIZINE HCL 25 MG TABLET (FP) PO ONE (15:25)
[2018-12-13] MEDS ORDERED: LACTATED RINGERS SOLUTION 1000 ML INFUS.BAG IV ONE (15:25)
--- NOTE | 2018-12-13 15:28 | PDOC ---
Documentation entered by Luis Sandoval SCRIBE, acting as scribe for Fabi Swartz MD. Fabi Swartz MD: This documentation has been prepared by the Jaime peterson Joel, SCRIBE, under my direction and personally reviewed by me in its entirety. I confirm that the documentation accurately reflects all work, treatment, procedures, and medical decision making performed by me. Attending Attestation - Resident Resident Name: NolenHaile - ED Attending Attestation I have performed the following: I have examined & evaluated the patient, The case was reviewed & discussed with the resident, I agree w/resident's findings & plan - HPI HPI: 12/13/18 15:32 The patient is a 73 year old male with a significant PMH of HTN, hyperlipidemia , CABG, and prostate CA who presents to the emergency department from search engine optimizer Dr Mcguire's office for evaluation of dizziness & lightheadedness after ultrasound in the office. The patient states developing dizziness, lightheadedness, tremors, and chills after standing from a lying position. The patient notes he also intermittently feels dizzy when turning his head and has had similar episodes over the past few months. he was given fluids at the office , with improvement of sx he took all his AM meds this morning, did not eat breakfast or lunch prior to office visit. baseline tremors and occasionally feeling off balance. has seen ENT previously, told it could be "crystals" in his ears. The patient denies chest pain, shortness of breath, headache Denies fevers, chills, nausea, vomiting, changes in BM Denies urinary symptoms. no focal weakness or paresthesias, visual or hearing disturbances. Allergies: NKA Surgical history: CABG. Social history: No reported cigarette, alcohol, or drug use. PCP: Dr. Alejandor 12/13/18 15:50 12/13/18 15:52 - Physicial Exam PE: 12/13/18 15:27 Agree with the resident's HPI and PE as documented in the electronic medical record. NAD, well appearing, EOMI, PERRL, MMM, nl conjunctiva, anicteric; neck supple. lungs clear, RRR, abdomen soft nontender. Back nontender. MCCOY x4, no focal neuro deficits. No peripheral edema. normal color for ethnicity, WWP. Alert, oriented to person time and place. +baseline tremors in both extremities , CN II-XII grossly intact. Strength prox and distally 5/5 throughout. Sensation grossly intact to light touch. MCCOY x4. gait stable. Speech clear. + LUE finger to nose dysmetria, possibly exacerbated with baseline tremors. no pronator drift. 12/13/18 15:51 - Medical Decision Making 12/13/18 15:27 See HPI for details. Prior notes reviewed, including admissions, discharges and consultations. Vital signs reviewed, wnl. DDX vertigo, central vs peripheral. CVA, cerebellar dysfunction, BPPV, anemia, electrolyte, derangements, polypharmacy, medication side effect laboratory results and imaging reviewed, basic labs and lytes wnl, Cardiac panel_neg, reassuring EKG sinus bradycardia 52 bpm, no interval abnormalities, narrow QRS, ST and T wave segments and morphology normal. Nonspecific T wave abnormalities ED course -interventions: IVF, gait stable on bedside assessment, dizziness improving. no cp or sob, no focal neuro sx does have baseline tremors. that could limit finger to nose CT head neg for [employer] pathology anticipate discharge with PCP and neuro followup, has seen Dr Chaparro previously. 12/13/18 15:27 12/13/18 16:59 12/14/18 16:33 Heart Score/ECG Review #1 ECG reviewed & interpreted by me at: 15:15 General ECG Interpretation: Sinus Rhythm, Normal Intervals Compared to previous ECG there are: No significant change 12/13/18 15:28 EKG sinus bradycardia 52 bpm, no interval abnormalities, narrow QRS, ST and T wave segments and morphology normal. Nonspecific T wave abnormalities
[2018-12-13 15:50] LABS: BASO % 0.6 % (0-2.0); EOS % 1.2 % (0-4.5); HEMATOCRIT 42.2 % (35.4-49); HEMOGLOBIN 14.2 GM/dL (11.7-16.9); LYMPH % 23.6 % (8-40); MCH 33.7 pg (25.7-33.7); MCHC 33.7 g/dl (32.0-35.9); MEAN PLT VOLUME 9.2 fl (7.5-11.1); MONO % 13.6 % (3.8-10.2); PLATELET COUNT 148 K/MM3 (134-434); RBC 4.22 M/mm3 (4.00-5.60); RDW 13.8 % (11.9-15.9); WHITE BLOOD COUNT 6.9 K/mm3 (4.0-10.0)
[2018-12-13] MEDS ORDERED: MECLIZINE HCL 25 MG TABLET (FP) ONE (16:04)
--- NOTE | 2018-12-13 16:40 | PDOC ---
History of Present Illness - General Chief Complaint: Weakness Stated Complaint: ,DIZZINESS Time Seen by Provider: 12/13/18 14:31 History Source: Patient, Significant Other (Girlfriend present at bedside.), Old Records Exam Limitations: No Limitations - History of Present Illness Initial Comments: HPI: 73 y/o male presenting to [facility] ER from Dr. Moreno clinic today for lightheadedness and dizziness with generalized shaking after standing up from the left lateral recumbent position. He had just completed an ultrasound exam. Pt was reportedly told by Dr. Joel that his blood pressure was fluctuating and that his urine was very dark. States he does not drink fluids frequently at baseline. Received IVFB at clinic and symptoms improved. At time of interview, pt reports symptoms have all significantly improved but not resolved. Was able to walk to the bathroom with staff assistance. This episode is occuring in the setting of a multi-month history of sudden onset dizziness after turning head to both R and L sides. Frequently occurs at night while sitting in bed. Has been evaluated by several specialist as outpatient, including ENT. Social Hx: - Former smoker Medical Hx: - HTN - COPD (using oxygen at night only) - A-fib (on Coumadin) - CAD s/p CABG in 1998 - s/p pacemaker placement Review of Systems: In addition to that documented in the HPI above, the additional ROS was obtained : Constitutional: Endorses chills. Denies fevers Head: Denies vision changes ENMT: Denies sore throat CV: Denies chest pain Resp: Denies SOB GI: Denies vomiting or diarrhea : Denies painful urination MSK: Denies recent trauma Skin: Denies new rashes Neuro: Denies new numbness or tingling or weakness Endocrine: Denies polyuria Heme: Denies bleeding or bruising Physical Examination: Constitutional: Well-developed, well-nourished adult male in no acute distress or obvious discomfort. Found semi-fowlers on hospital bed. Alert and oriented x4. Answered all questions appropriately and completely. Speech was non-labored , non-pressured. Head: Normocephalic. No obvious external signs of trauma. Neck: Supple, trachea is midline. Cardiovascular / Chest: Regular rate and regular rhythm. No murmur, rubs, clicks , or gallops. Peripheral pulses: radial pulses full. Pacemaker in left upper chest. Trace pretibial edema bilaterally. Respiratory: Breathing unlabored. Equal chest rise and fall. Clear to auscultation bilaterally. No stridor, no wheezing, no rhonchi. Gastrointestinal: abdomen is soft, non-tender, non-distended. Neuro: Alert and oriented. Moving all four extremities spontaneously. Resting tremor in hands. Skin: Warm, dry, and intact. Psych: Affect: appropriate. Mood: normal. MDM: *Reviewed vital signs, nursing notes, and prior visit documentation (if available). 73 y/o male presenting from Dr. Moreno clinic for lightheadedness and dizziness with reportedly labile BP. Endorsed orthostatic symptoms. H/o of similar symptoms. Afebrile. Vitals unremarkable for hypotension or tachycardia. Orthostatic vital signs significant for 20mmHg drop in systolic when transitioning from sitting to standing; nurse reports this was not associated with increased dizziness. Physical exam as described above. Suspect likely hypotension secondary to polypharmacy versus BPPV versus transient hypoglycemia (denies eating food all day). Head CT ordered to evaluate for possible cerebellar lesion. Ordered IVFB and meclizine. CBC unremarkable for leukocytosis or anemia. CMP unremarkable for significant electrolyte derangement, LFT elevation, or renal function derangement. Troponin not elevated. EKG unremarkable for ischemic findings. Head CT unremarkable for acute intracranial lesions. Continue to suspect orthostatic symptoms secondary to pharmacology versus BPPV. Discussed imaging and laboratory results with pt. Answered all questions. Provided return precautions. Pt expressed verbal understanding and agreement with plan to discharge home with outpatient follow up. Encouraged pt to f/u with Dr. Chaparro, pts neurologist of record. Will see Dr. Joel at previously scheduled appt on Thursday. Reports he was already told to bring his entire bag of medication for review. Discharged vital signs revealed bradycardia to 48bpm. BP obtained at the same time was unremarkable for hypotension. Pt stood and walked unassisted without reporting lightheadedness or dizziness. 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 Re-emphasized this point. Haile Nolen M.D., PGY1 Emergency Medicine Resident Past History - Past Medical History Allergies/Adverse Reactions: Allergies Allergy/AdvReac Type Severity Reaction Status Date / Time No Known Allergies Allergy Verified 12/13/18 14:29 Home Medications: Ambulatory Orders Acetaminophen [Tylenol .Regular Strength -] 650 mg PO Q4H PRN #0 tablet Ascorbic Acid [Vitamin C] 500 mg PO DAILY #0 tablet 11/13/12 Aspirin [ASA -] 81 mg PO DAILY #0 tab.chew 11/13/12 Cholecalciferol (Vitamin D3) [Vitamin D] 1,000 mg PO DAILY #0 tablet 11/13/12 Docosahexanoic Acid/Epa [Fish Oil Softgel] 1,000 mg PO DAILY #0 capsule Multivit-Min/FA/Lycopene/Lut [Centrum Silver Tablet] 1 tab PO DAILY #0 tablet Alprazolam 0.5 mg PO DAILY PRN 10/27/18 Mirabegron [Myrbetriq] 25 mg PO DAILY 10/27/18 Nebivolol HCl [Bystolic] 2.5 mg PO DAILY 10/27/18 Ranitidine [Zantac -] 150 mg PO BID 10/27/18 Ranolazine [Ranexa -] 1,000 mg PO BID 10/27/18 Tamsulosin HCl [Flomax] 0.4 mg PO HS 10/27/18 Albuterol 0.083% Nebulizer Kate [Ventolin 0.083% Nebulizer Soln -] 1 amp NEB Q4H PRN amp 10/29/18 Ezetimibe [Zetia -] 10 mg PO DAILY tablet 10/29/18 Levofloxacin [Levaquin] 500 mg PO DAILY #4 tablet 10/29/18 Nebivolol [Bystolic -] 2.5 mg PO DAILY tab 10/29/18 Nebulizer [Aeroeclipse II] 1 each MC DAILY PRN #1 each 10/29/18 Prednisone See Taper PO ASDIR #20 tablet 10/29/18 Ranolazine [Ranexa -] 1,000 mg PO BID tab 10/29/18 Cancer: Yes (PROSTATE) Cardiac Disorders: Yes (CABG) COPD: No GI Disorders: Yes HTN: Yes Hypercholesterolemia: Yes - Surgical History Cardiac Surgery: Yes (TRIPLE BYPASS '99) - Suicide/Smoking/Psychosocial Hx Smoking Status: No Smoking History: Unknown if ever smoked Have you smoked in the past 12 months: No Number of Cigarettes Smoked Daily: 0 'Breaking Loose' booklet given: 01/27/14 Hx Alcohol Use: No Drug/Substance Use Hx: No Substance Use Type: Alcohol *Physical Exam - Vital Signs Last Vital Signs Temp Pulse Resp BP Pulse Ox 98.7 F 60 20 157/65 96 12/13/18 14:29 12/13/18 14:29 12/13/18 14:29 12/13/18 14:29 12/13/18 14:29 Vital Signs - Vital Signs #1 Blood Pressure: 152/75 MAP: 100 BP Location: Right Arm Blood Pressure Position: Sitting Pulse Rate: 48 O2 Sat by Pulse Oximetry (%): 95 Oxygen Delivery Method: Room Air ED Treatment Course - LABORATORY CBC & Chemistry Diagram: 12/13/18 15:30 12/13/18 15:30 - ADDITIONAL ORDERS Additional order review: 12/13/18 15:30 RBC 4.22 MCV 100.0 H MCHC 33.7 RDW 13.8 MPV 9.2 Neutrophils % 61.0 D Lymphocytes % 23.6 D Monocytes % 13.6 H Eosinophils % 1.2 D Basophils % 0.6 - Medications Given in the ED: ED Medications Discontinued Medications Generic Name Dose Route Start Last Admin Trade Name Freq PRN Reason Stop Dose Admin Lactated Ringer's 1,000 ml 12/13/18 15:25 12/13/18 15:45 Lactated Ringers Solution IV 12/13/18 15:26 1,000 ml ONCE ONE Administration Meclizine HCl 25 mg 12/13/18 15:25 12/13/18 15:45 Antivert - PO 12/13/18 15:26 25 mg ONCE ONE Administration *DC/Admit/Observation/Transfer Diagnosis at time of Disposition: Dizziness - Discharge Dispostion Disposition: HOME Condition at time of disposition: Improved Decision to Admit order: No - Referrals Referrals: Ramiro Alejandro MD [Primary Care Provider] - Ten Chaparro MD [Staff Physician] - Gladis Joel MD [Staff Physician] - - Patient Instructions Printed Discharge Instructions: DI for Vertigo, DI for Benign Paroxysmal Positional Vertigo Additional Instructions: You were seen today for dizziness, lightheadedness, and arm shaking at Dr. Moreno office. Your EKG, blood work, and head CT were normal. Your symptoms are likely caused by blood pressures changes from your prescription medications , from the movement of small crystals in your ear, or even from dehydration and not eating today. Be sure to stay hydrated over the next several days. Do not meal skip! Follow up with Dr. Joel at your previously scheduled appointment on Thursday. A copy of todays results are attached to this packet. Take it to the appointment so your doctor can review them. You should also follow up with your neurologist, Dr. Chaparro. You will need to call to make an appointment. The number is included in this packet. A copy of todays results are attached to this packet. Take it to the appointment so your doctor can review them. Go to the nearest emergency department if your condition worsens or you feel like you need additional emergency evaluation. Print Language: SERBIAN - Post Discharge Activity
[2018-12-13 16:44] LABS: ALBUMIN 3.5 g/dl (3.4-5.0); ALK PHOS 36 U/L (45-117); ANION GAP 7 MMOL/L (8-16); BILIRUBIN,TOTAL 0.6 mg/dL (0.2-1); BLOOD UREA NITROGEN 12.9 mg/dL (7-18); CALCIUM 8.7 mg/dL (8.5-10.1); CHLORIDE 108 mmol/L (98-107); CO2 29 mmol/L (21-32); GLUCOSE,RANDOM 102 mg/dL (74-106); POTASSIUM 3.8 mmol/L (3.5-5.1); SGOT/AST 23 U/L (15-37); SGPT/ALT 31 U/L (13-61); SODIUM 144 mmol/L (136-145); TOT PROT 6.4 g/dl (6.4-8.2)
[2018-12-13 19:26] VITALS: BP 152/75; PULSE 48
--- NOTE | 2018-12-14 10:35 | EKG ---
Test Reason : Blood Pressure : / mmHG Vent. Rate : 052 BPM Atrial Rate : 052 BPM P-R Int : 194 ms QRS Dur : 104 ms QT Int : 464 ms P-R-T Axes : 044 -41 043 degrees QTc Int : 431 ms SINUS BRADYCARDIA LEFT AXIS DEVIATION ABNORMAL ECG WHEN COMPARED WITH ECG OF 27-OCT-2018 08:04, PREMATURE ATRIAL COMPLEXES ARE NO LONGER PRESENT VENT. RATE HAS DECREASED BY 35 BPM Confirmed by Savage Bowers MD ([id number]) on 12/14/2018 10:35:23 AM Referred By: Confirmed By:Savage Bowers MD
== END 2018-12-13 20:05 | disposition home or self-care (01) ==
LOC: JER 14:18
PROC: 3E0337Z Introduction of Electrolytic and Water Balance Substance into Peripheral Vein, Percutaneous Approach (ICD-10-PCS; principal; 2018-12-13)
DX: R42 Dizziness and giddiness (principal); I25.10 Atherosclerotic heart disease of native coronary artery without angina pectoris; I10 Essential (primary) hypertension; Z95.1 Presence of aortocoronary bypass graft; I48.91 Unspecified atrial fibrillation; Z79.01 Long term (current) use of anticoagulants; J44.9 Chronic obstructive pulmonary disease, unspecified; Z95.0 Presence of cardiac pacemaker
CPT/HCPCS: 36415; 70450-TC; 80053; 84484; 85025; 93005; 93010; 99281-25

== ENCOUNTER 2018-12-17 10:53 | Inpatient (IN) | payer OTHER, BC ==
--- NOTE | 2018-12-17 11:02 | PDOC ---
History of Present Illness - General Stated Complaint: DIZZINES/FEVER/VOMITING - History of Present Illness Initial Comments: The pt is a 73M w/ a history of COPD, HTN, CAD s/p CABG and PNA that was he finished treatment for approximately 1 month ago who presents for evaluation of fevers, increased difficulty breathing and wheezing. The pt reports subjective fevers last night and approximately 2 days of increased difficulty breathing. Denies HALL, vision changes, chest pain, abdominal pain, N/V/C/D, dysuria, hematuria, or blood in his stool. Allergies: Denies SH: Denies x3 PMD: Dr. Alejandro 12/17/18 11:49 Past History - Past Medical History Allergies/Adverse Reactions: Allergies Allergy/AdvReac Type Severity Reaction Status Date / Time No Known Allergies Allergy Verified 12/17/18 11:15 Home Medications: Ambulatory Orders Acetaminophen [Tylenol .Regular Strength -] 650 mg PO Q4H PRN #0 tablet Ascorbic Acid [Vitamin C] 500 mg PO DAILY #0 tablet 11/13/12 Aspirin [ASA -] 81 mg PO DAILY #0 tab.chew 11/13/12 Cholecalciferol (Vitamin D3) [Vitamin D] 1,000 mg PO DAILY #0 tablet 11/13/12 Docosahexanoic Acid/Epa [Fish Oil Softgel] 1,000 mg PO DAILY #0 capsule Multivit-Min/FA/Lycopene/Lut [Centrum Silver Tablet] 1 tab PO DAILY #0 tablet Alprazolam 0.5 mg PO DAILY PRN 10/27/18 Mirabegron [Myrbetriq] 25 mg PO DAILY 10/27/18 Nebivolol HCl [Bystolic] 2.5 mg PO DAILY 10/27/18 Ranitidine [Zantac -] 150 mg PO BID 10/27/18 Ranolazine [Ranexa -] 1,000 mg PO BID 10/27/18 Tamsulosin HCl [Flomax] 0.4 mg PO HS 10/27/18 Albuterol 0.083% Nebulizer Kate [Ventolin 0.083% Nebulizer Soln -] 1 amp NEB Q4H PRN amp 10/29/18 Ezetimibe [Zetia -] 10 mg PO DAILY tablet 10/29/18 Nebulizer [Aeroeclipse II] 1 each MC DAILY PRN #1 each 10/29/18 Cancer: Yes (PROSTATE) Cardiac Disorders: Yes (CABG) COPD: No GI Disorders: Yes HTN: Yes Hypercholesterolemia: Yes - Surgical History Cardiac Surgery: Yes (TRIPLE BYPASS '99) - Suicide/Smoking/Psychosocial Hx Smoking Status: No Smoking History: Unknown if ever smoked Have you smoked in the past 12 months: No Number of Cigarettes Smoked Daily: 0 'Breaking Loose' booklet given: 01/27/14 Hx Alcohol Use: No Drug/Substance Use Hx: No Substance Use Type: Alcohol Review of Systems - Review of Systems Able to Perform ROS?: Yes Comments:: GENERAL/CONSTITUTIONAL: No fever or chills. No weakness HEAD, EYES, EARS, NOSE AND THROAT: No change in vision. No ear pain or discharge. No sore throat CARDIOVASCULAR: No chest pain RESPIRATORY: Denies hemoptysis GASTROINTESTINAL: No nausea, vomiting, diarrhea or constipation GENITOURINARY: No dysuria, frequency, or change in urination MUSCULOSKELETAL: No joint or muscle swelling or pain SKIN: No rash NEUROLOGIC: No headache, vertigo, loss of consciousness, or change in strength/ sensation ENDOCRINE: No increased thirst. No abnormal weight change HEMATOLOGIC/LYMPHATIC: No anemia, easy bleeding, or history of blood clots ALLERGIC/IMMUNOLOGIC: No hives or skin allergy 12/17/18 11:01 Is the patient limited [place] proficient: No *Physical Exam - Vital Signs Vital Signs Temp Pulse Resp BP Pulse Ox 98 F 76 23 H 113/61 96 12/17/18 11:10 12/17/18 12:50 12/17/18 12:50 12/17/18 12:50 12/17/18 12:50 12/17/18 13:36 - Physical Exam Comments: GENERAL: Awake, alert, and oriented to person/place/time, in no acute distress HEAD: No signs of trauma, normocephalic, atraumatic EYES: PERRLA, EOMI, sclera anicteric, conjunctiva clear ENT: Hearing grossly normal, nares patent, oropharynx clear without exudates. Moist mucosa LUNGS: Hypoxia; increased WOB; b/l expiratory wheeze HEART: Regular rate and rhythm, normal S1 and S2, no murmurs appreciated, peripheral pulses normal and equal bilaterally ABDOMEN: Soft, nontender, normoactive bowel sounds. No guarding, no rebound EXTREMITIES: Normal inspection, Normal range of motion, no edema. No clubbing or cyanosis NEUROLOGICAL: Cranial nerves II through XII grossly intact. Normal speech, normal gait, no focal sensorimotor deficits SKIN: Warm, Dry 12/17/18 11:01 ED Treatment Course - LABORATORY CBC & Chemistry Diagram: 12/17/18 11:10 12/17/18 11:19 - RADIOLOGY Radiology Studies Ordered: Category Date Time Status CHEST X-RAY PORTABLE* [RAD] Stat Radiology 12/17/18 11:00 Ordered Medical Decision Making - Medical Decision Making The pt is a 73M w/ a history of HTN, CAD s/p CABG, COPD, recently treated PNA who presents for evaluation of shortness of breath, wheeze, and fevers Ddx includes PNA, sepsis, COPD exacerbation, low suspicion for ACS, metabolic derangement Lytes wnl Trop I wnl No TERE LFTs unremarkable Lactate elevated at 2.4 and leukocytosis 13.4 Hypoxia to low 90s on RA, improved to 95% on 2L NC Pt w/ evidence of RLL PNA -Will treat as community acquired PNA w/ Ceftriaxone & Azithromycin 12/17/18 12:14 Vanc and Zosyn per Hospitalist CT chest w/o contrast Rapid Influenza sent Dispo: Admit 12/17/18 12:57 *DC/Admit/Observation/Transfer Diagnosis at time of Disposition: Hypoxia Sepsis Qualifiers: Sepsis type: sepsis due to unspecified organism Qualified Code(s): A41.9 - Sepsis, unspecified organism Pneumonia Qualifiers: Pneumonia type: due to unspecified organism Laterality: right Lung location: unspecified part of lung Qualified Code(s): J18.9 - Pneumonia, unspecified organism - Discharge Dispostion Condition at time of disposition: Good Decision to Admit order: Yes - Referrals - Patient Instructions - Post Discharge Activity
[2018-12-17 11:26] LABS: BASO % 0.3 % (0-2.0); EOS % 1.2 % (0-4.5); HEMATOCRIT 42.6 % (35.4-49); HEMOGLOBIN 14.5 GM/dL (11.7-16.9); LYMPH % 3.2 % (8-40); MCH 33.9 pg (25.7-33.7); MCHC 33.9 g/dl (32.0-35.9); MEAN PLT VOLUME 9.3 fl (7.5-11.1); MONO % 2.8 % (3.8-10.2); NEUT % 92.5 % (42.8-82.8); PLATELET COUNT 128 K/MM3 (134-434); RBC 4.26 M/mm3 (4.00-5.60); RDW 13.8 % (11.9-15.9); WHITE BLOOD COUNT 13.4 K/mm3 (4.0-10.0)
--- NOTE | 2018-12-17 11:33 | PDOC ---
Attending Attestation - Resident Resident Name: Masood Hudsonan - ED Attending Attestation I have performed the following: I have examined & evaluated the patient, The case was reviewed & discussed with the resident, I agree w/resident's findings & plan, Exceptions are as noted - HPI HPI: 12/17/18 11:34 Mr. Taylor is a 73 yo M h/o HTN, COPD, Afib, CAD, s/p PPM, prostate ca (s/p prostatectomy, in remission), recent admission for pneumonia who presents to the ER with a complaint of weakness Pt states after discharge from the hospital, he felt ok (Was on Levaquin and was given supplement O2 to be used as needed) He went for a follow up appointment with Dr Bagley and when he was about to leave, he stood up and became vertiginous He notes that he was shaking and felt like he did when he was admitted for pneumonia. He was sent to the ER where work up resulted in dx of vertigo Pt notes that last night, he had pizza for dinner He then developed a subjective fever, vomited x 2, noted myalgias and arthralgias all night No abdominal pain, no diarrhea Pt notes increased fatigue He denies shortness of breath Medical Hx: - HTN - COPD (using oxygen at night only) - A-fib (on Coumadin) - CAD s/p CABG in 1998 - s/p pacemaker placement 12/17/18 11:36 12/17/18 12:08 - Physicial Exam PE: 12/17/18 12:14 GENERAL: The patient is in no acute distress. ENT: Ears normal, nares patent, oropharynx clear without exudates. Moist mucous membranes. NECK: Normal range of motion, supple LUNGS: No wheezes, and no crackles. HEART:Regular rate and rhythm, normal S1 and S2 without murmur, rub or gallop. ABDOMEN: Soft, nontender, normoactive bowel sounds. EXTREMITIES: scant edema noted, 1+ bilaterally NEUROLOGICAL: Cranial nerves II through XII grossly intact. Normal speech. No focal neurological deficits. SKIN: Warm, Dry, normal turgor, no rashes or lesions noted. - Critical Care Time Total Critical Care Time: 60 Critical Care Statement: The care of this patient involved high complexity decision making to prevent further life threatening deterioration of the patient 's condition and/or to evaluate & treat vital organ system(s) failure or risk of failure. - Medical Decision Making 12/17/18 11:39 EKG -NSR rate of 77 bpm, LAD, RBBB, t waves upright Laboratory Tests 12/13/18 12/17/18 15:30 11:10 WBC 13.4 H Hgb 14.2 14.5 Hct 42.2 42.6 Plt Count 148 128 L 12/17/18 12:15 Laboratory Tests 12/17/18 12/17/18 12/17/18 11:00 11:19 11:19 Sodium 138 Potassium 3.6 Chloride 102 Carbon Dioxide 30 BUN 10.4 Creatinine 1.2 Random Glucose 160 H Lactic Acid 2.4 H* Total Bilirubin 1.3 H Troponin I < 0.02 Urine Blood Urine Nitrite Ur Leukocyte Esterase 12/17/18 11:31 Sodium Potassium Chloride Carbon Dioxide BUN Creatinine Random Glucose Lactic Acid Total Bilirubin Troponin I Urine Blood Negative Urine Nitrite Negative Ur Leukocyte Esterase Negative 12/17/18 12:15 CXR: RML infiltrate Will treat for pneumonia Will give IV hydration Will give Ceftriaxone and Azithromycin Pt admitted to hospitalist service They will like to broaden coverage to Vancomycin and zosyn Will add these agents Pt remains stable in the ER Hydrate with IVF given lactate Clinical Impression: Pneumonia, Sepsis, 12/19/18 07:06
[2018-12-17 11:41] LABS: INR 1.25 (0.83-1.09); PROTHROMBIN TIME (PATIENT) 14.8 SEC (9.7-13.0)
[2018-12-17 11:43] LABS: ACTIVATED PTT 28.5 SECONDS (25.2-36.5)
[2018-12-17 11:47] LABS: PH,URINE 5.5 (5.0-8.0); URINE APPEARANCE CLEAR; URINE BILIRUBIN NEGATIVE (NEGATIVE); URINE COLOR YELLOW; URINE GLUCOSE (UA) NEGATIVE (NEGATIVE); URINE KETONE NEGATIVE (NEGATIVE); URINE LEUK ESTERASE NEGATIVE (NEGATIVE); URINE NITRITE NEGATIVE (NEGATIVE); URINE PROTEIN TRACE (NEGATIVE); URINE UROBILINOGEN 0.2 mg/dL (0.2-1.0)
[2018-12-17] MEDS ORDERED: CEFTRIAXONE 2,000 MG in DEXTROSE 5%-WATER - 50 ML IVPB ONE (11:51)
[2018-12-17] MEDS ORDERED: AZITHROMYCIN IVPB 500 MG in DEXTROSE 5%-WATER - 250 ML IVPB ONE (11:51)
[2018-12-17 11:53] LABS: ANISOCYTOSIS 0; MACROCYTOSIS 1+; OVALOCYTE 1+; PLATELET ESTIMATE DECREASED
[2018-12-17 11:54] LABS: ALBUMIN 3.3 g/dl (3.4-5.0); BILIRUBIN,TOTAL 1.3 mg/dL (0.2-1); BLOOD UREA NITROGEN 10.4 mg/dL (7-18); CALCIUM 8.6 mg/dL (8.5-10.1); CREATININE 1.2 mg/dL (0.55-1.3); POTASSIUM 3.6 mmol/L (3.5-5.1); TOT PROT 6.1 g/dl (6.4-8.2)
--- NOTE | 2018-12-17 12:00 | EKG ---
Test Reason : Blood Pressure : / mmHG Vent. Rate : 077 BPM Atrial Rate : 077 BPM P-R Int : 190 ms QRS Dur : 114 ms QT Int : 404 ms P-R-T Axes : 017 -35 035 degrees QTc Int : 457 ms NORMAL SINUS RHYTHM LEFT AXIS DEVIATION INCOMPLETE RIGHT BUNDLE BRANCH BLOCK ABNORMAL ECG WHEN COMPARED WITH ECG OF 13-DEC-2018 15:14, VENT. RATE HAS INCREASED BY 25 BPM INCOMPLETE RIGHT BUNDLE BRANCH BLOCK IS NOW PRESENT Confirmed by REINALDO SCHMITZ MD ([id number]) on 12/17/2018 12:00:08 PM Referred By: Confirmed By:REINALDO SCHMITZ MD
[2018-12-17] MEDS ORDERED: CEFTRIAXONE 2 GM/100 ML BAG IVPB ONE (12:02)
[2018-12-17] MEDS ORDERED: ALBUTEROL SO4 2.5/IPRATROPIUM 0.5 INH SOL 3 ML VIAL.NEB. NEB ONE (12:02)
[2018-12-17] MEDS ORDERED: AZITHROMYCIN IVPB 500 MG/250 ML BAG IVPB ONE (12:02)
[2018-12-17] MEDS: ALBUTEROL SO4 2.5/IPRATROPIUM 0.5 INH SOL 3 ML VIAL.NEB. NEB SCH ×5 (12:10→20:31)
[2018-12-17] MEDS ORDERED: LACTATED RINGERS SOLUTION 1000 ML INFUS.BAG IV ONE (12:13)
[2018-12-17] MEDS ORDERED: VANCOMYCIN 1,000 MG in DEXTROSE 5%-WATER - 250 ML IVPB ONE (12:41)
[2018-12-17] MEDS ORDERED: VANCOMYCIN 1 GRAM (PRE-DOCKED) 1,000 MG/250 ML BAG IVPB ONE (12:44)
[2018-12-17] MEDS ORDERED: PIPERACILLIN/TAZOB 4.5 GM 4.5 GM in DEXTROSE 5%-WATER 100 ML IVPB ONE (12:53)
--- NOTE | 2018-12-17 13:26 | HP ---
CHIEF COMPLAINT: chills, vomiting, dyspnea, dizziness PCP: Dr. Díaz Admin Prog Coord: Dr. Joel Benzene Washer Dr. Mckeon HISTORY OF PRESENT ILLNESS: 73 yom with PMHx of HTN, HLD, CAD s/p CABG 03/1999(GARRISON->LAD, SVG->dRCA patent on 03/05/2015 cath), diastolic dysfunction, COPD from second hand smoking, HTN heart disease with labile pressures, hyperlipidemia, prostate ca (s/p prostatectomy, in remission), recently admitted to [facility] with RML PNA 10/27-07/01 d/ roque on abx/prednisone taper and home oxygen, seen in ED on 12/13 for positional dizziness, comes with onset of chills, vomiting x2 clear non bloody, dyspnea and ongoing dizziness. Patient had 2D echo and nuclear stress test on 12/[address] Joel, post test got dizzy and was seen in ER, felt from hypovolumia/vertigo. Reports had some chills then. Last night, had chills, with subjective fevers, vomiting x 2, shortness of breath, dizziness, generalized aches and pain, advised by Dr. Joel to come to the ED today. 12 point ROS done, long standing h/o dizziness with w/u in the past (seen by ENT ). Also has upper extremity tremors and plans to see Dr. Love. Denies any chest pain, palpitations, cough, sputum, orthopnea/PND, recent travel, sick contacts. ER course was notable for: (1) Ceftriaxone/azithromycin (2) lactic acid 2.4 (3) CXR Recent Travel: denies PAST MEDICAL HISTORY: HTN, HLD, CAD s/p CABG 03/1999(GARRISON->LAD, SVG->dRCA patent on 03/05/2015 cath), diastolic dysfunction, HTN heart disease with labile pressures, hyperlipidemia, prostate ca (s/p prostatectomy, in remission) , recently admitted to [facility] with RML PNA 10/27-07/01 d/roque on abx/prednisone taper and home oxygen, ?COPD on second hand smoking PAST SURGICAL HISTORY: CABG, Cardiac cath Social History: Smoking: Never, second hand smoking from parents Alcohol: glass of wine daily Drugs: denies 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, 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 Family History: Allergies No Known Allergies Allergy (Verified 12/17/18 11:15) HOME MEDICATIONS: Home Medications Medication Instructions Recorded Acetaminophen [Tylenol .Regular 650 mg PO Q4H PRN #0 tablet 11/13/12 Strength -] Ascorbic Acid [Vitamin C] 500 mg PO DAILY #0 tablet 11/13/12 Aspirin [ASA -] 81 mg PO DAILY #0 tab.chew 11/13/12 Cholecalciferol (Vitamin D3) 1,000 mg PO DAILY #0 tablet 11/13/12 [Vitamin D] Docosahexanoic Acid/Epa [Fish Oil 1,000 mg PO DAILY #0 capsule 11/13/12 Softgel] Multivit-Min/FA/Lycopene/Lut 1 tab PO DAILY #0 tablet 11/13/12 [Centrum Silver Tablet] Alprazolam 0.5 mg PO DAILY PRN 10/27/18 Mirabegron [Myrbetriq] 25 mg PO DAILY 10/27/18 Nebivolol HCl [Bystolic] 2.5 mg PO DAILY 10/27/18 Ranitidine [Zantac -] 150 mg PO BID 10/27/18 Ranolazine [Ranexa -] 1,000 mg PO BID 10/27/18 Tamsulosin HCl [Flomax] 0.4 mg PO HS 10/27/18 Albuterol 0.083% Nebulizer Kate 1 amp NEB Q4H PRN amp 10/29/18 [Ventolin 0.083% Nebulizer Soln -] Ezetimibe [Zetia -] 10 mg PO DAILY tablet 10/29/18 Nebulizer [Aeroeclipse II] 1 each MC DAILY PRN #1 each 10/29/18 REVIEW OF SYSTEMS 12 point ROS done, per HPI PHYSICAL EXAMINATION Vital Signs - 24 hr 12/17/18 12/17/18 12/17/18 11:10 11:19 12:50 Temperature 98 F Pulse Rate 77 Pulse Rate [ 76 Apical] Respiratory 16 23 H Rate Blood Pressure 118/44 L Blood Pressure 113/61 [Right Arm] O2 Sat by Pulse 92 L 95 96 Oximetry (%) Intake & Output 12/14/18 12/15/18 12/16/18 12/17/18 23:59 23:59 23:59 23:59 Weight 224 lb GENERAL: AAOX3, face flushed, mild tachypnea, no use of accessory muscles of respiration HEAD: Normal with no signs of trauma. EYES: Pupils equal, round and reactive to light, extraocular movements intact, sclera anicteric, conjunctiva clear. No lid lag. EARS, NOSE, THROAT: Ears normal, nares patent, oropharynx clear without exudates. Moist mucous membranes. NECK: soft, supple, no JVD noted LUNGS: good air entry bilaterally, no wheezing, few ?left basilar rales HEART: Regular rate and rhythm, normal S1 and S2 ABDOMEN: Soft, obese, NT throughout, pos bowel sounds, no voluntary or involuntary guarding or rigidity MUSCULOSKELETAL: Normal range of motion at all joints. No bony deformities or tenderness. No CVA tenderness. UPPER EXTREMITIES: 2+ pulses, warm, well-perfused. No cyanosis. No clubbing. No peripheral edema. LOWER EXTREMITIES: 1+ pedal edema with varicosities NEUROLOGICAL: AAOX3, power 5/5, sensation intact and symmetric to light touch, EOMI, Cranial nerves II-XII intact. Normal speech. Gait not observed, intentional tremors on finger nose test exam PSYCHIATRIC: Cooperative. Good eye contact. Appropriate mood and affect. SKIN: Warm, dry, normal turgor, no rashes or lesions noted, normal capillary refill. Laboratory Results - last 24 hr 12/17/18 12/17/18 12/17/18 11:00 11:10 11:10 WBC 13.4 H RBC 4.26 Hgb 14.5 Hct 42.6 MCV 100.0 H MCH 33.9 H MCHC 33.9 RDW 13.8 Plt Count 128 L MPV 9.3 Absolute Neuts (auto) 12.4 H Neutrophils % 92.5 H D Neutrophils % (Manual) 92.5 H Band Neutrophils % 0.9 Lymphocytes % 3.2 L D Lymphocytes % (Manual) 2.8 L Monocytes % 2.8 L Monocytes % (Manual) 3 L Eosinophils % 1.2 Eosinophils % (Manual) 1.0 Basophils % 0.3 Basophils % (Manual) 0.0 Myelocytes % (Man) 0 Promyelocytes % (Man) 0 Blast Cells % (Manual) 0 Nucleated RBC % 0 Metamyelocytes 0 Hypochromia 0 Platelet Estimate Decreased Polychromasia 0 Poikilocytosis 0 Anisocytosis 0 Microcytosis 0 Macrocytosis 1+ Ovalocytes 1+ PT with INR 14.80 H INR 1.25 H PTT (Actin FS) 28.5 Sodium Potassium Chloride Carbon Dioxide Anion Gap BUN Creatinine Est GFR (CKD-EPI)AfAm Est GFR (CKD-EPI)NonAf Random Glucose Lactic Acid Calcium Total Bilirubin AST ALT Alkaline Phosphatase Troponin I < 0.02 Total Protein Albumin Urine Color Urine Appearance Urine pH Ur Specific Pound Urine Protein Urine Glucose (UA) Urine Ketones Urine Blood Urine Nitrite Urine Bilirubin Urine Urobilinogen Ur Leukocyte Esterase Influenza A (Rapid) Influenza B (Rapid) 12/17/18 12/17/18 12/17/18 11:19 11:19 11:31 WBC RBC Hgb Hct MCV MCH MCHC RDW Plt Count MPV Absolute Neuts (auto) Neutrophils % Neutrophils % (Manual) Band Neutrophils % Lymphocytes % Lymphocytes % (Manual) Monocytes % Monocytes % (Manual) Eosinophils % Eosinophils % (Manual) Basophils % Basophils % (Manual) Myelocytes % (Man) Promyelocytes % (Man) Blast Cells % (Manual) Nucleated RBC % Metamyelocytes Hypochromia Platelet Estimate Polychromasia Poikilocytosis Anisocytosis Microcytosis Macrocytosis Ovalocytes PT with INR INR PTT (Actin FS) Sodium 138 Potassium 3.6 Chloride 102 Carbon Dioxide 30 Anion Gap 7 L BUN 10.4 Creatinine 1.2 Est GFR (CKD-EPI)AfAm 68.15 Est GFR (CKD-EPI)NonAf 58.80 Random Glucose 160 H Lactic Acid 2.4 H* Calcium 8.6 Total Bilirubin 1.3 H AST 24 ALT 31 Alkaline Phosphatase 35 L Troponin I Total Protein 6.1 L Albumin 3.3 L Urine Color Yellow Urine Appearance Clear Urine pH 5.5 Ur Specific Pound 1.013 Urine Protein Trace Urine Glucose (UA) Negative Urine Ketones Negative Urine Blood Negative Urine Nitrite Negative Urine Bilirubin Negative Urine Urobilinogen 0.2 Ur Leukocyte Esterase Negative Influenza A (Rapid) Influenza B (Rapid) 12/17/18 12:45 WBC RBC Hgb Hct MCV MCH MCHC RDW Plt Count MPV Absolute Neuts (auto) Neutrophils % Neutrophils % (Manual) Band Neutrophils % Lymphocytes % Lymphocytes % (Manual) Monocytes % Monocytes % (Manual) Eosinophils % Eosinophils % (Manual) Basophils % Basophils % (Manual) Myelocytes % (Man) Promyelocytes % (Man) Blast Cells % (Manual) Nucleated RBC % Metamyelocytes Hypochromia Platelet Estimate Polychromasia Poikilocytosis Anisocytosis Microcytosis Macrocytosis Ovalocytes PT with INR INR PTT (Actin FS) Sodium Potassium Chloride Carbon Dioxide Anion Gap BUN Creatinine Est GFR (CKD-EPI)AfAm Est GFR (CKD-EPI)NonAf Random Glucose Lactic Acid Calcium Total Bilirubin AST ALT Alkaline Phosphatase Troponin I Total Protein Albumin Urine Color Urine Appearance Urine pH Ur Specific Pound Urine Protein Urine Glucose (UA) Urine Ketones Urine Blood Urine Nitrite Urine Bilirubin Urine Urobilinogen Ur Leukocyte Esterase Influenza A (Rapid) Negative Influenza B (Rapid) Negative EKG NSR, incomplete RBBB CXR increased atelectatic changes left base ASSESSMENT/PLAN: 73 yom with PMHx of HTN, HLD, CAD s/p CABG 03/1999(GARRISON->LAD, SVG->dRCA patent on 03/05/2015 cath), diastolic dysfunction, ?COPD from second hand smoking, HTN heart disease with labile pressures, hyperlipidemia, prostate ca (s/p prostatectomy, in remission), recently admitted to [facility] with RML PNA 10/27-07/01 d/ roque on abx/prednisone taper and home oxygen, seen in ED on 12/13 for positional dizziness, admitted with sepsis, ?LLL PNA. 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 Salazar. CXR noted. Blood cx, CT chest. Emperic zosyn/vancomycin given recent hospitalization with treatment for CAP, till etiology identified. Prednisone 40 mg daily, standing and prn nebs Pulmonary input if concerning symptoms or CT findings. IV hydration with monitoring of volume status. Discussed with Dr. Joel, recent 2D echo 12/13 with EF 60-65%, grade II diastolic dysfunction, mild TR, RVSP 30 and Nuclear stress test with anterior ischemia unchanged from prior. Continue home ASA/zetia/bystolic/ranexa. GIPPX ranitidine DVTPPX lovenox Dispo pending clinical improvement. PT eval prior to dc. Plan discussed with patient and at bedside in detail, all questions answered Total admit time 65 min. Visit type - Emergency Visit Emergency Visit: Yes ED Registration Date: 12/17/18 Care time: The patient presented to the Emergency Department on the above date and was hospitalized for further evaluation of their emergent condition. - New Patient This patient is new to me today: Yes Date on this admission: 12/17/18 - Critical Care Critical Care patient: No
[2018-12-17] MEDS ORDERED: ACETAMINOPHEN 325 MG TABLET (FP) PO PRN ×2 (13:43→15:17)
[2018-12-17] MEDS ORDERED: SODIUM CHLORIDE 1,000 ML IV SCH ×2 (13:45→15:17)
[2018-12-17] MEDS ORDERED: ALBUTEROL SO4 0.083% IH SOL 2.5 MG/3 ML VIAL.NEB. NEB PRN ×2 (13:46→15:17)
[2018-12-17] MEDS ORDERED: PATIENT'S OWN MEDICATION (NON-FORMULARY) (Alprazolam [Alprazolam] 0.5 MG) PO PRN (13:48)
[2018-12-17] MEDS ORDERED: predniSONE 20 MG TABLET (UD) PO SCH ×2 (14:00→14:15)
[2018-12-17] MEDS ORDERED: DEXTROSE 5%-WATER 100 ML IVPB ONE ×3 (14:07→22:19)
[2018-12-17] MEDS ORDERED: PIPERACILLIN/TAZOBACTAM 4.5 GM VIAL IVPB ONE ×3 (14:07→22:19)
[2018-12-17] MEDS ORDERED: methylPREDNISolone NA SUCC 40 MG/1 ML VIAL IVPUSH ONE (14:11)
[2018-12-17 14:24] LABS: VENOUS PC02 63.2 mmHg (41-51); VENOUS PH 7.28 (7.31-7.41); VENOUS PO2 30.1 mmHg (30-40)
[2018-12-17] MEDS ORDERED: methylPREDNISolone NA SUCC 40 MG/1 ML VIAL IVPUSH SCH ×2 (14:30→22:00)
[2018-12-17] MEDS ORDERED: SODIUM CHLORIDE 1,000 ML IV STA (14:31)
[2018-12-17] MEDS ORDERED: PIPERACILLIN/TAZOB 4.5 GM 4.5 GM in DEXTROSE 5%-WATER 100 ML IVPB SCH ×3 (15:30→22:00)
[2018-12-17] MEDS ORDERED: ALBUTEROL SO4 2.5/IPRATROPIUM 0.5 INH SOL 3 ML VIAL.NEB. NEB SCH (16:00)
--- NOTE | 2018-12-17 16:37 | CON.ID ---
Consult Referred by:: hospitalist Reason for Consultation:: fever - History of Present Illness Chief Complaint: fever, myalgia, shakes History of Present Illness: 73 yo man with CAD, recent admission in 5 10/27 to 10/29 for RML pneumonia- discharged on levaquin and prednisone taper as well as home oxygen he reports feeling well after discharge and finishing his new meds still using his oxygen at night he notes last night he developed fever and chills and shakes, felt achy and had an episode of vomiting, he later soaked his night shirt fevers persisted all night despite ice packs and motrin/tylenol and he came to ED denies cough no travel no further vomiting no diarrhea no chest pain or abdominal pain no sick contacts had seen dr gaffney as outpt and had pfts done in the office also notes he has had persistent severe vertigo- everytime he turns his head when he is laying down he had an echo recently with home visits nurse and had such severe vertigo that he was sent to the ER-head ct was without acute changes no weight loss has had fatigue for the last one year received vancomycin zosyn, rocephin and zithromax in the ED elevated lactic acid in the ED - History Source History Provided By: Patient, Friend Limitations to Obtaining History: No Limitations - Past Medical History 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 Cardio/Vascular: Yes: CAD, HTN, Hyperlipdemia - Past Surgical History Past Surgical History: Yes: CABG - Alcohol/Substance Use Hx Alcohol Use: No - Smoking History Smoking history: Unknown if ever smoked Have you smoked in the past 12 months: No Aproximately how many cigarettes per day: 0 - Social History Usual Living Arrangement: With Significant Other ADL: Independent 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 History of Recent Travel: No Home Medications - Allergies Allergies/Adverse Reactions: Allergies Allergy/AdvReac Type Severity Reaction Status Date / Time No Known Allergies Allergy Verified 12/17/18 11:15 - Home Medications Home Medications: Ambulatory Orders Acetaminophen [Tylenol .Regular Strength -] 650 mg PO Q4H PRN #0 tablet Ascorbic Acid [Vitamin C] 500 mg PO DAILY #0 tablet 11/13/12 Aspirin [ASA -] 81 mg PO DAILY #0 tab.chew 11/13/12 Cholecalciferol (Vitamin D3) [Vitamin D] 1,000 mg PO DAILY #0 tablet 11/13/12 Docosahexanoic Acid/Epa [Fish Oil Softgel] 1,000 mg PO DAILY #0 capsule Multivit-Min/FA/Lycopene/Lut [Centrum Silver Tablet] 1 tab PO DAILY #0 tablet Alprazolam 0.5 mg PO DAILY PRN 10/27/18 Mirabegron [Myrbetriq] 25 mg PO DAILY 10/27/18 Nebivolol HCl [Bystolic] 2.5 mg PO DAILY 10/27/18 Ranitidine [Zantac -] 150 mg PO BID 10/27/18 Ranolazine [Ranexa -] 1,000 mg PO BID 10/27/18 Tamsulosin HCl [Flomax] 0.4 mg PO HS 10/27/18 Albuterol 0.083% Nebulizer Kate [Ventolin 0.083% Nebulizer Soln -] 1 amp NEB Q4H PRN amp 10/29/18 Ezetimibe [Zetia -] 10 mg PO DAILY tablet 10/29/18 Nebulizer [Aeroeclipse II] 1 each MC DAILY PRN #1 each 10/29/18 Family Disease History - Family Disease History Family Disease History: CA: Father (stroke, colon cancer), Other: Father, Mother (pneumonia) Review of Systems - Review of Systems Constitutional: reports: Chills, Diaphoresis, Fever, Night Sweats Eyes: reports: No Symptoms HENT: reports: No Symptoms. denies: Difficult Swallowing, Throat Pain, Toothache Neck: reports: No Symptoms Cardiovascular: reports: No Symptoms, Edema (trace). denies: Chest Pain Respiratory: reports: No Symptoms Gastrointestinal: reports: Vomiting (times one last night). denies: Abdominal Pain, Constipation, Diarrhea, Nausea Genitourinary: reports: No Symptoms. denies: Burning, Discharge Breasts: reports: No Symptoms Reported Musculoskeletal: reports: No Symptoms Integumentary: reports: No Symptoms Neurological: reports: Other (vertigo) Physical Exam Vital Signs: Vital Signs Temperature 98 F 12/17/18 11:10 Pulse Rate 76 12/17/18 12:50 Respiratory Rate 23 H 12/17/18 12:50 Blood Pressure 113/61 12/17/18 12:50 O2 Sat by Pulse Oximetry (%) 93 L 12/17/18 15:59 Constitutional: Yes: Well Nourished, No Distress, Calm Eyes: Yes: Conjunctiva Clear, EOM Intact HENT: Yes: Atraumatic, Normocephalic. No: Pharyngeal Erythema, Thrush, Tonsillar Exudate Neck: Yes: Supple, Trachea Midline Cardiovascular: Yes: Regular Rate and Rhythm Respiratory: Yes: Regular, Diminished (at bases) Gastrointestinal: Yes: Normal Bowel Sounds, Soft. No: Tenderness, Epigastrium ...Rectal Exam: Yes: Deferred Renal/: No: CVA Tenderness - Left, CVA Tenderness - Right Musculoskeletal: Yes: WNL Extremities: Yes: WNL Edema: Yes Edema: LLE: Trace, RLE: Trace Neurological: Yes: Alert, Oriented Labs: CBC, BMP 12/17/18 11:10 12/17/18 11:19 cultures pending Imaging - Results Chest X-ray: Report Reviewed, Image Reviewed Cat Scan: Report Reviewed, Image Reviewed (worsening RML infiltrate) Problem List - Problems (1) Sepsis Code(s): A41.9 - SEPSIS, UNSPECIFIED ORGANISM Qualifiers: Sepsis type: sepsis due to unspecified organism Qualified Code(s): A41.9 - Sepsis, unspecified organism (2) Pneumonia Code(s): J18.9 - PNEUMONIA, UNSPECIFIED ORGANISM Qualifiers: Pneumonia type: due to unspecified organism Laterality: right Lung location: unspecified part of lung Qualified Code(s): J18.9 - Pneumonia, unspecified organism (3) Coronary artery disease Code(s): I25.10 - ATHSCL HEART DISEASE OF [place] CORONARY ARTERY W/O ANG PCTRS Qualifiers: Coronary Disease-Associated Artery/Lesion type: [place] artery [place] vs. transplanted heart: [place] heart Associated angina: without angina Qualified Code(s): I25.10 - Atherosclerotic heart disease of [place] coronary artery without angina pectoris Assessment/Plan recurrent pneumonia/atelectasis RML concerning for endobronchial lesion vancomycin and zosyn until cultures are back cover for HCAP d/w pulmonary they will schedule patient for bronchoscopy d/w hospitalist
[2018-12-17 17:04] VITALS: BMI 33.1
[2018-12-17] MEDS: methylPREDNISolone NA SUCC 40 MG/1 ML VIAL IVPUSH SCH (17:05)
--- NOTE | 2018-12-17 17:24 | PN ---
Progress Note (short form) - Note Progress Note: PULMONARY CONSULTATION DICTATED 12/17/18 IMP ACUTE HYPERCAPNEIC RESPIRATORY FAILURE RML CONSOLIDATION/ATELECTASIS PNEUMONIA COPD LLL NODULE ASHD S/P CABG HTN H/O PROSTATE CA ELEVATED LACTATE LEVEL DIASTOLIC HF PLAN ABX PER ID O2 CULTURES INHALED BRONCHODILATORS MEDROL F/U CHEST X-RAYS TREND LACTATE ABG DR HUNTER Problem List - Problems (1) Hypoxia Code(s): R09.02 - HYPOXEMIA (2) Pneumonia Code(s): J18.9 - PNEUMONIA, UNSPECIFIED ORGANISM Qualifiers: Pneumonia type: due to unspecified organism Laterality: right Lung location: unspecified part of lung Qualified Code(s): J18.9 - Pneumonia, unspecified organism (3) Sepsis Code(s): A41.9 - SEPSIS, UNSPECIFIED ORGANISM Qualifiers: Sepsis type: sepsis due to unspecified organism Qualified Code(s): A41.9 - Sepsis, unspecified organism (4) Coronary artery disease Code(s): I25.10 - ATHSCL HEART DISEASE OF [place] CORONARY ARTERY W/O ANG PCTRS Qualifiers: Coronary Disease-Associated Artery/Lesion type: [place] artery [place] vs. transplanted heart: [place] heart Associated angina: without angina Qualified Code(s): I25.10 - Atherosclerotic heart disease of [place] coronary artery without angina pectoris (5) Diastolic dysfunction without heart failure Code(s): I51.89 - OTHER ILL-DEFINED HEART DISEASES (6) S/P CABG (coronary artery bypass graft) Code(s): Z95.1 - PRESENCE OF AORTOCORONARY BYPASS GRAFT
--- NOTE | 2018-12-17 20:45 | CONS ---
DATE OF CONSULTATION: 12/17/2018 PULMONARY CONSULTATION REFERRING PHYSICIAN: Raymundo Weathers M.D. HISTORY OF PRESENT ILLNESS: The patient is a 73-year-old white male past medical history likely COPD, atrial fibrillation, ASHD status post CABG, status post permanent pacemaker, prostate CA status post prostatectomy, RT, hypertension, admitted to [facility] with complaint of fevers and chills and weakness. Patient was recently hospitalized in October secondary to pneumonia. At the time he was treated with supplemental O2 and antibiotics. He was discharged home in stable condition. He was doing well until last night when he started developing weakness, shaking chills, fever. He presented back to the emergency room. In the ER, he was noted to be febrile to a temperature of 100.3. He underwent a CT of the chest which revealed increasing right middle lobe consolidation, increasing nodular density in the left lower lobe. Patient started on antibiotics, transferred to medical telemetry unit for further management. Of note, the patient also complained of vomiting x2, generalized myalgias and arthralgias. Denied any hemoptysis. PAST MEDICAL HISTORY: Again includes ASHD status post CABG, history of prostate CA, hypertension, pneumonia, and hyperlipidemia. Diastolic dysfunction. PAST SURGICAL HISTORY: Includes CABG. REVIEW OF SYSTEMS: No cough. No chest pain. No shortness of breath at this time. Positive fever, chills. Positive vomiting x2. SOCIAL HISTORY: No occupational exposure, history of secondhand exposure. CURRENT MEDICATIONS: Include Solu-Medrol 40 q.8, Flomax, Tylenol, piperacillin, vancomycin, Lovenox, Xanax, albuterol, Bystolic, Ranexa, Zetia, normal saline, ranitidine, aspirin, and vitamin C. PHYSICAL EXAMINATION: GENERAL: The patient is a well-developed, well-nourished male awake alert in no acute distress. He is afebrile. VITAL SIGNS: Blood pressure 134/71, respiratory rate 20, O2 saturation is 93%. HEENT: Normocephalic, atraumatic. NECK: Supple. HEART: Regular S1, S2. CHEST: Clear. ABDOMEN: Soft, bowel sounds positive. EXTREMITIES: No cyanosis, edema. LABORATORY: Venous blood gas: pH 7.28, pCO2 of 63, pO2 of 30, bicarbonate 28, saturation of 44. WBC 13.4, hemoglobin 14.5, hematocrit 42.6, platelet count 128,000. INR 1.25. Chemistries: BUN 10, creatinine 1.2, lactate level is 2.9. Chest CT: extensive right middle lobe atelectasis worsened since October 27, 2018. There is also nodule in the left lower lobe which has increased in size 11 mm. IMPRESSION: 1. Acute hypercapnic respiratory failure 2. Pneumonia. RML consolidation/atelectasis 3. Recurrent pneumonia. 4. Chronic obstructive pulmonary disease. 5. Left lower lobe nodule. 6. Arteriosclerotic heart disease status post coronary artery bypass graft. 7. Diastolic heart failure. 8. Elevated lactate level. 9. History of prostate carcinoma. PLAN: Antibiotics as per infectious disease. Supplemental O2. Cultures, steroids,inhaled bronchodilators followup chest x-ray. Consider flexible bronchoscopy to rule out endobronchial pathology. Trend lactate. Arterial blood gas. GIANA HUNTER M.D. [id number] MTDD
[2018-12-17] MEDS ORDERED: RANITIDINE HCL 150 MG TABLET (FP) PO SCH (22:00)
[2018-12-17] MEDS ORDERED: RANOLAZINE E.R. 1,000 MG TABLET (FP) PO SCH (22:00)
[2018-12-17] MEDS ORDERED: TAMSULOSIN HCL 0.4 MG CAP PO SCH (22:00)
[2018-12-17] MEDS: TAMSULOSIN HCL 0.4 MG CAP PO SCH (22:22)
[2018-12-17] MEDS: RANITIDINE HCL 150 MG TABLET (FP) PO SCH (22:22)
[2018-12-17] MEDS: PIPERACILLIN/TAZOB 4.5 GM 4.5 GM in DEXTROSE 5%-WATER 100 ML IVPB SCH (22:22)
[2018-12-17] MEDS: RANOLAZINE E.R. 1,000 MG TABLET (FP) PO SCH (22:22)
[2018-12-17] MEDS: ALPRAZolam 0.25 MG TABLET PO PRN (22:42)
[2018-12-18] MEDS: VANCOMYCIN 1 GRAM (PRE-DOCKED) 1,000 MG/250 ML BAG IVPB SCH ×3 (01:02→14:18)
[2018-12-18] MEDS: methylPREDNISolone NA SUCC 40 MG/1 ML VIAL IVPUSH SCH ×3 (02:29→20:23)
[2018-12-18] MEDS ORDERED: PIPERACILLIN/TAZOBACTAM 4.5 GM VIAL IVPB ONE ×3 (03:46→17:50)
[2018-12-18] MEDS ORDERED: DEXTROSE 5%-WATER 100 ML IVPB ONE ×3 (03:46→17:50)
[2018-12-18] MEDS: PIPERACILLIN/TAZOB 4.5 GM 4.5 GM in DEXTROSE 5%-WATER 100 ML IVPB SCH ×3 (03:52→17:56)
[2018-12-18 07:47] LABS: BASO % 0.1 % (0-2.0); EOS % 0.1 % (0-4.5); HEMOGLOBIN 13.7 GM/dL (11.7-16.9); LYMPH % 2.5 % (8-40); MCHC 33.5 g/dl (32.0-35.9); MEAN CELL VOLUME 101.4 fl (80-96); MEAN PLT VOLUME 9.7 fl (7.5-11.1); MONO % 1.9 % (3.8-10.2); NEUT % 95.4 % (42.8-82.8); RBC 4.04 M/mm3 (4.00-5.60); RDW 14.1 % (11.9-15.9); WHITE BLOOD COUNT 12.6 K/mm3 (4.0-10.0)
[2018-12-18 08:09] LABS: ALBUMIN 2.8 g/dl (3.4-5.0); BILIRUBIN,TOTAL 0.7 mg/dL (0.2-1); BLOOD UREA NITROGEN 15.2 mg/dL (7-18); CALCIUM 8.8 mg/dL (8.5-10.1); CREATININE 1.2 mg/dL (0.55-1.3); MAGNESIUM 1.9 mg/dL (1.8-2.4); PHOSPHOROUS 1.7 mg/dL (2.5-4.9); POTASSIUM 3.6 mmol/L (3.5-5.1); TOT PROT 5.8 g/dl (6.4-8.2)
[2018-12-18] MEDS: ALBUTEROL SO4 2.5/IPRATROPIUM 0.5 INH SOL 3 ML VIAL.NEB. NEB SCH ×4 (08:12→20:31)
[2018-12-18 08:40] LABS: ARTERIAL BLD GAS O2 SATURATION 97.8 % (95-98); ARTERIAL BLOOD GAS BASE EXCESS -0.8 meq/l (-2-2); ARTERIAL BLOOD GAS PCO2 41.7 mmHg (35-45); ARTERIAL BLOOD GAS PO2 100 mmHg (80-105); ARTERIAL BLOOD GAS pH 7.38 (7.35-7.45)
[2018-12-18 08:41] LABS: ALLENS TEST POSITIVE
[2018-12-18 09:14] LABS: PLATELET COUNT 113 K/MM3 (134-434)
[2018-12-18] MEDS ORDERED: ALPRAZolam 0.25 MG TABLET PO PRN (10:00)
[2018-12-18] MEDS ORDERED: NEBIVOLOL 2.5 MG TABLET (FP) PO SCH (10:00)
[2018-12-18] MEDS ORDERED: ASPIRIN 81 MG CHEWABLE TABLETS PO SCH (10:00)
[2018-12-18] MEDS ORDERED: ENOXAPARIN NA (PORCINE) 40 MG/0.4 ML DISP.SYRIN SQ SCH (10:00)
[2018-12-18] MEDS ORDERED: EZETIMIBE 10 MG TABLET (FP) PO SCH (10:00)
[2018-12-18] MEDS ORDERED: CHOLECALCIFEROL (VIT D3) 1,000 UNIT (25 MCG) TABLET PO SCH (10:00)
[2018-12-18] MEDS ORDERED: ASCORBIC ACID 250 MG TABLET (FP) PO SCH (10:00)
--- NOTE | 2018-12-18 10:35 | PN ---
Progress Note, Physician History of Present Illness: PULMONARY ALERT,FEELING BETTER,LESS CONGESTED,O2 SAT 97% - Current Medication List Current Medications: Active Medications Acetaminophen (Tylenol -) 650 mg PO Q6H PRN PRN Reason: FEVER Last Admin: 12/17/18 22:42 Dose: 650 mg Albuterol Sulfate (Ventolin 0.083% Nebulizer Soln -) 1 amp NEB Q4H PRN PRN Reason: SHORT OF BREATH/WHEEZING Albuterol/Ipratropium (Duoneb -) 1 amp NEB RQID [facility] Last Admin: 12/18/18 08:12 Dose: 1 amp Alprazolam (Xanax -) 0.5 mg PO Q24H PRN PRN Reason: ANXIETY Last Admin: 12/17/18 22:42 Dose: 0.5 mg Ascorbic Acid (Vitamin C -) 500 mg PO DAILY [facility] Aspirin (Asa -) 81 mg PO DAILY [facility] Cholecalciferol (Vitamin D3 -) 1,000 unit PO DAILY [facility] Ezetimibe (Zetia -) 10 mg PO DAILY [facility] Enoxaparin Sodium (Lovenox -) 40 mg SQ DAILY [facility] Sodium Chloride (Normal Saline -) 1,000 mls @ 75 mls/hr IV ASDIR [facility] Last Admin: 12/17/18 18:43 Dose: 75 mls/hr Vancomycin HCl (Vancomycin (Pre-Docked)) 1,000 mg in 250 mls @ 166.667 mls/hr IVPB Q12H [facility]; Protocol Last Admin: 12/18/18 01:02 Dose: 166.667 mls/hr Piperacillin Sod/Tazobactam (Sod 4.5 gm/ Dextrose) 100 mls @ 200 mls/hr IVPB Q8H-IV [facility]; Protocol Last Admin: 12/18/18 03:52 Dose: 200 mls/hr Methylprednisolone Sodium Succinate (Solu-Medrol -) 40 mg IVPUSH Q8H-IV [facility] Last Admin: 12/18/18 02:29 Dose: 40 mg Nebivolol (Bystolic -) 2.5 mg PO DAILY [facility] Ranitidine HCl (Zantac -) 150 mg PO BID [facility] Last Admin: 12/17/18 22:22 Dose: 150 mg Ranolazine (Ranexa -) 1,000 mg PO BID [facility] Last Admin: 12/17/18 22:22 Dose: 1,000 mg Tamsulosin HCl (Flomax -) 0.4 mg PO HS [facility] Last Admin: 12/17/18 22:22 Dose: 0.4 mg - Objective Vital Signs: Vital Signs Temperature 98.1 F 12/18/18 06:00 Pulse Rate 52 L 12/18/18 06:00 Respiratory Rate 20 12/18/18 06:00 Blood Pressure 120/63 12/18/18 06:00 O2 Sat by Pulse Oximetry (%) 95 12/17/18 21:00 Constitutional: Yes: Well Nourished, Calm Eyes: Yes: WNL HENT: Yes: WNL Neck: Yes: WNL Cardiovascular: Yes: Regular Rate and Rhythm, S1, S2 Respiratory: Yes: Rhonchi (LESS RHONCHI AND WHEEZES BILATERALLY) Gastrointestinal: Yes: Normal Bowel Sounds, Soft Extremities: Yes: WNL Edema: No Labs: CBC, BMP 12/18/18 06:50 12/18/18 06:50 INR, PTT INR 1.25 (0.83-1.09) H 12/17/18 11:10 Laboratory Tests 12/18/18 08:18 ABG pH 7.38 ABG pCO2 at Pt Temp 41.7 ABG pO2 at Pt Temp 100 ABG HCO3 23.8 ABG O2 Sat (Measured) 97.8 Oxygen Flow Rate 3 Problem List - Problems (1) Hypoxia Code(s): R09.02 - HYPOXEMIA (2) Pneumonia Code(s): J18.9 - PNEUMONIA, UNSPECIFIED ORGANISM Qualifiers: Pneumonia type: due to unspecified organism Laterality: right Lung location: unspecified part of lung Qualified Code(s): J18.9 - Pneumonia, unspecified organism (3) Sepsis Code(s): A41.9 - SEPSIS, UNSPECIFIED ORGANISM Qualifiers: Sepsis type: sepsis due to unspecified organism Qualified Code(s): A41.9 - Sepsis, unspecified organism (4) Coronary artery disease Code(s): I25.10 - ATHSCL HEART DISEASE OF [place] CORONARY ARTERY W/O ANG PCTRS Qualifiers: Coronary Disease-Associated Artery/Lesion type: [place] artery [place] vs. transplanted heart: [place] heart Associated angina: without angina Qualified Code(s): I25.10 - Atherosclerotic heart disease of [place] coronary artery without angina pectoris (5) Diastolic dysfunction without heart failure Code(s): I51.89 - OTHER ILL-DEFINED HEART DISEASES (6) S/P CABG (coronary artery bypass graft) Code(s): Z95.1 - PRESENCE OF AORTOCORONARY BYPASS GRAFT Assessment/Plan IMP ACUTE HYPERCAPNEIC RESPIRATORY FAILURE IMPROVED RML CONSOLIDATION/ATELECTASIS PNEUMONIA COPD LLL NODULE ASHD S/P CABG HTN H/O PROSTATE CA ELEVATED LACTATE LEVEL IMPROVING DIASTOLIC HF PLAN ABX PER ID O2 INHALED BRONCHODILATORS CONTINUE MEDROL F/U CHEST X-RAYS TREND LACTATE DR HUNTER Problem List - Problems (1) Hypoxia Code(s): R09.02 - HYPOXEMIA (2) Pneumonia Code(s): J18.9 - PNEUMONIA, UNSPECIFIED ORGANISM Qualifiers: Pneumonia type: due to unspecified organism Laterality: right Lung location: unspecified part of lung Qualified Code(s): J18.9 - Pneumonia, unspecified organism (3) Sepsis Code(s): A41.9 - SEPSIS, UNSPECIFIED ORGANISM Qualifiers: Sepsis type: sepsis due to unspecified organism Qualified Code(s): A41.9 - Sepsis, unspecified organism (4) Coronary artery disease Code(s): I25.10 - ATHSCL HEART DISEASE OF [place] CORONARY ARTERY W/O ANG PCTRS Qualifiers: Coronary Disease-Associated Artery/Lesion type: [place] artery [place] vs. transplanted heart: [place] heart Associated angina: without angina Qualified Code(s): I25.10 - Atherosclerotic heart disease of [place] coronary artery without angina pectoris (5) Diastolic dysfunction without heart failure Code(s): I51.89 - OTHER ILL-DEFINED HEART DISEASES (6) S/P CABG (coronary artery bypass graft) Code(s): Z95.1 - PRESENCE OF AORTOCORONARY BYPASS GRAFT
[2018-12-18 11:33] LABS: ANISOCYTOSIS 0; MACROCYTOSIS 1+; PLATELET ESTIMATE DECREASED
[2018-12-18] MEDS ORDERED: PT OWN MED DRAWER 7, Y5N ONE (11:41)
[2018-12-18] MEDS: ASCORBIC ACID 500 MG TABLET (FP) PO SCH (11:45)
[2018-12-18] MEDS: RANITIDINE HCL 150 MG TABLET (FP) PO SCH ×2 (11:45→21:37)
[2018-12-18] MEDS: ASPIRIN 81 MG CHEWABLE TABLETS PO SCH (11:45)
[2018-12-18] MEDS: NEBIVOLOL 2.5 MG TABLET (FP) PO SCH (11:46)
[2018-12-18] MEDS: ENOXAPARIN NA (PORCINE) 40 MG/0.4 ML DISP.SYRIN SQ SCH (11:46)
[2018-12-18] MEDS: RANOLAZINE E.R. 1,000 MG TABLET (FP) PO SCH ×2 (11:46→21:36)
[2018-12-18] MEDS: CHOLECALCIFEROL (VIT D3) 1,000 UNIT (25 MCG) TABLET PO SCH (11:47)
[2018-12-18] MEDS: EZETIMIBE 10 MG TABLET (FP) PO SCH (11:47)
--- NOTE | 2018-12-18 13:09 | PN ---
Physical Exam: SUBJECTIVE: Patient seen and examined, breathing improved. reports sleeping well on bipap last night, with better sleep and no dreams. No complaints otherwise. OBJECTIVE: Vital Signs Period Temp Pulse Resp BP Sys/Neri Pulse Ox Last 24 Hr 97.4 F-100.3 F 52-77 20-80 109-142/60-71 93-95 Intake & Output 12/15/18 12/16/18 12/17/18 12/18/18 23:59 23:59 23:59 23:59 Intake Total 1825 875 Output Total 1050 1050 Balance 775 -175 Weight 231 lb 4 oz GENERAL: sitting in bed, mild use of accessory muscles of respiration, able to speak in full sentence CVS:S1S2 regular Chest: improved air entry, few right basilar rales Abdomen:soft, obese, NT Extremities: trace pedal edema Neck: soft, suppl Laboratory Results - last 24 hr 12/17/18 12/17/18 12/17/18 11:10 11:31 12:45 WBC RBC Hgb Hct MCV MCH MCHC RDW Plt Count MPV Absolute Neuts (auto) Neutrophils % Neutrophils % (Manual) Band Neutrophils % Lymphocytes % Lymphocytes % (Manual) Monocytes % Monocytes % (Manual) Eosinophils % Eosinophils % (Manual) Basophils % Basophils % (Manual) Myelocytes % (Man) Promyelocytes % (Man) Blast Cells % (Manual) Nucleated RBC % Metamyelocytes Hypochromia Platelet Estimate Polychromasia Poikilocytosis Anisocytosis Microcytosis Macrocytosis Puncture Site ABG pH ABG pCO2 at Pt Temp ABG pO2 at Pt Temp ABG HCO3 ABG O2 Sat (Measured) ABG O2 Content ABG Base Excess Samy Test VBG pH 7.28 L POC VBG pCO2 63.2 H POC VBG pO2 30.1 VBG HCO3 28.4 VBG O2 Sat (Juan Jose) 44.3 L VBG Base Excess -0.5 Oxygen Flow Rate Sodium Potassium Chloride Carbon Dioxide Anion Gap BUN Creatinine Est GFR (CKD-EPI)AfAm Est GFR (CKD-EPI)NonAf Random Glucose Lactic Acid Calcium Phosphorus Magnesium Total Bilirubin AST ALT Alkaline Phosphatase Total Protein Albumin U Pathogenic Cast Auto No Result Required. U Sm Round Cell (Auto) No Result Required. Urine Crystals (Auto) Urine Yeast (Auto) No Result Required. Influenza A (Rapid) Negative Influenza B (Rapid) Negative 12/17/18 12/17/18 12/18/18 13:03 17:30 06:50 WBC 12.6 H RBC 4.04 Hgb 13.7 Hct 41.0 MCV 101.4 H MCH 34.0 H MCHC 33.5 RDW 14.1 Plt Count 113 L MPV 9.7 Absolute Neuts (auto) 12.0 H Neutrophils % 95.4 H Neutrophils % (Manual) 91.0 H Band Neutrophils % 3.0 Lymphocytes % 2.5 L D Lymphocytes % (Manual) 6.0 L D Monocytes % 1.9 L Monocytes % (Manual) 0 L D Eosinophils % 0.1 D Eosinophils % (Manual) 0.0 D Basophils % 0.1 Basophils % (Manual) 0.0 Myelocytes % (Man) 0 Promyelocytes % (Man) 0 Blast Cells % (Manual) 0 Nucleated RBC % 0 Metamyelocytes 0 Hypochromia 0 Platelet Estimate Decreased Polychromasia 0 Poikilocytosis 1+ Anisocytosis 0 Microcytosis 0 Macrocytosis 1+ Puncture Site ABG pH ABG pCO2 at Pt Temp ABG pO2 at Pt Temp ABG HCO3 ABG O2 Sat (Measured) ABG O2 Content ABG Base Excess Samy Test VBG pH POC VBG pCO2 POC VBG pO2 VBG HCO3 VBG O2 Sat (Juan Jose) VBG Base Excess Oxygen Flow Rate Sodium Potassium Chloride Carbon Dioxide Anion Gap BUN Creatinine Est GFR (CKD-EPI)AfAm Est GFR (CKD-EPI)NonAf Random Glucose Lactic Acid 2.9 H* 2.2 H* Calcium Phosphorus Magnesium Total Bilirubin AST ALT Alkaline Phosphatase Total Protein Albumin U Pathogenic Cast Auto U Sm Round Cell (Auto) Urine Crystals (Auto) Urine Yeast (Auto) Influenza A (Rapid) Influenza B (Rapid) 12/18/18 12/18/18 12/18/18 06:50 06:50 08:18 WBC RBC Hgb Hct MCV MCH MCHC RDW Plt Count MPV Absolute Neuts (auto) Neutrophils % Neutrophils % (Manual) Band Neutrophils % Lymphocytes % Lymphocytes % (Manual) Monocytes % Monocytes % (Manual) Eosinophils % Eosinophils % (Manual) Basophils % Basophils % (Manual) Myelocytes % (Man) Promyelocytes % (Man) Blast Cells % (Manual) Nucleated RBC % Metamyelocytes Hypochromia Platelet Estimate Polychromasia Poikilocytosis Anisocytosis Microcytosis Macrocytosis Puncture Site Left radial ABG pH 7.38 ABG pCO2 at Pt Temp 41.7 ABG pO2 at Pt Temp 100 ABG HCO3 23.8 ABG O2 Sat (Measured) 97.8 ABG O2 Content 18.9 ABG Base Excess -0.8 Samy Test Positive VBG pH POC VBG pCO2 POC VBG pO2 VBG HCO3 VBG O2 Sat (Juan Jose) VBG Base Excess Oxygen Flow Rate 3 Sodium 141 Potassium 3.6 Chloride 107 Carbon Dioxide 27 Anion Gap 7 L BUN 15.2 Creatinine 1.2 Est GFR (CKD-EPI)AfAm 68.15 Est GFR (CKD-EPI)NonAf 58.80 Random Glucose 208 H Lactic Acid 2.1 H Calcium 8.8 Phosphorus 1.7 L Magnesium 1.9 Total Bilirubin 0.7 AST 14 L ALT 24 Alkaline Phosphatase 30 L Total Protein 5.8 L Albumin 2.8 L U Pathogenic Cast Auto U Sm Round Cell (Auto) Urine Crystals (Auto) Urine Yeast (Auto) Influenza A (Rapid) Influenza B (Rapid) Active Medications Generic Name Dose Route Start Last Admin Trade Name Freq PRN Reason Stop Dose Admin Acetaminophen 650 mg 12/17/18 15:17 12/17/18 22:42 Tylenol - PO 650 mg Q6H PRN Administration FEVER Albuterol Sulfate 1 amp 12/17/18 15:17 Ventolin 0.083% Nebulizer Soln - NEB Q4H PRN SHORT OF BREATH/WHEEZING Albuterol/Ipratropium 1 amp 12/17/18 16:00 12/18/18 08:12 Duoneb - NEB 1 amp RQID ALEAH Administration Alprazolam 0.5 mg 12/17/18 22:36 12/17/18 22:42 Xanax - PO 0.5 mg Q24H PRN Administration ANXIETY Ascorbic Acid 500 mg 12/18/18 10:00 12/18/18 11:45 Vitamin C - PO 500 mg DAILY ALEAH Administration Aspirin 81 mg 12/18/18 10:00 12/18/18 11:45 Asa - PO 81 mg DAILY ALEAH Administration Cholecalciferol 1,000 unit 12/18/18 10:00 12/18/18 11:47 Vitamin D3 - PO 1,000 unit DAILY ALEAH Administration Ezetimibe 10 mg 12/18/18 10:00 12/18/18 11:47 Zetia - PO 10 mg DAILY ALEAH Administration Enoxaparin Sodium 40 mg 12/18/18 10:00 12/18/18 11:46 Lovenox - SQ 40 mg DAILY ALEAH Administration Sodium Chloride 1,000 mls @ 75 mls/hr 12/17/18 15:17 12/17/18 18:43 Normal Saline - IV 75 mls/hr ASDIR ALEAH Administration Vancomycin HCl 1,000 mg in 250 mls @ 166.667 mls/hr 12/18/18 01:00 12/18/18 01:02 Vancomycin (Pre-Docked) IVPB 166.667 mls/hr Q12H ALEAH Administration Protocol Piperacillin Sod/Tazobactam 100 mls @ 200 mls/hr 12/17/18 22:00 12/18/18 11: 47 Sod 4.5 gm/ Dextrose IVPB 200 mls/hr Q8H-IV ALEAH Administration Protocol Magnesium Oxide 800 mg 12/18/18 13:15 Mag-Ox - PO 12/20/18 10:01 DAILY [facility] Methylprednisolone Sodium Succinate 40 mg 12/17/18 18:00 12/18/18 11:47 Solu-Medrol - IVPUSH 40 mg Q8H-IV ALEAH Administration Nebivolol 2.5 mg 12/18/18 10:00 12/18/18 11:46 Bystolic - PO 2.5 mg DAILY ALEAH Administration Potassium Phos/Sodium Phos 2 packet 12/18/18 13:15 Phos-Nak Packet - PO 12/19/18 22:01 BID ALEAH Ranitidine HCl 150 mg 12/17/18 22:00 12/18/18 11:45 Zantac - PO 150 mg BID ALEAH Administration Ranolazine 1,000 mg 12/17/18 22:00 12/18/18 11:46 Ranexa - PO 1,000 mg BID ALEAH Administration Tamsulosin HCl 0.4 mg 12/17/18 22:00 12/17/18 22:22 Flomax - PO 0.4 mg HS ALEAH Administration Microbiology 12/17/18 16:40 Urine For Antigen Detection Legionella Antigen - Preliminary 12/17/18 16:40 Urine For Antigen Detection Streptococcus pneumoniae Antigen (M - Preliminary 12/17/18 11:19 Blood - Peripheral Venous Blood Culture - Preliminary NO GROWTH OBTAINED AFTER 24 HOURS, INCUBATION TO CONTINUE FOR 4 DAYS. 12/17/18 11:19 Blood - Peripheral Venous Blood Culture - Preliminary NO GROWTH OBTAINED AFTER 24 HOURS, INCUBATION TO CONTINUE FOR 4 DAYS. 12/17/18 12:10 Sputum - Expectorated Gram Stain - Final 12/17/18 12:10 Sputum - Expectorated Sputum Culture - Preliminary NORMAL RESPIRATORY CHARLENE 12/17/18 11:31 Urine - Urine Clean Catch Urine Culture - Final NO GROWTH OBTAINED CT chest results reviewed ASSESSMENT/PLAN: 73 yom with PMHx of HTN, HLD, CAD s/p CABG 03/1999(GARRISON->LAD, SVG->dRCA patent on 03/05/2015 cath), diastolic dysfunction, ?COPD from second hand smoking, HTN heart disease with labile pressures, hyperlipidemia, prostate ca (s/p prostatectomy, in remission), recently admitted to [facility] with RML PNA 10/27-07/01 d/ roque on abx/prednisone taper and home oxygen, seen in ED on 12/13 for positional dizziness, admitted with sepsis, ?LLL PNA. 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 ID/pulmonary input noted. Zosyn/vancomycin day 2. Follow up blood/sputum cx. Urine PNA studies neg. Slow steroid taper. Standing and prn nebs. Bipap hs and prn. Suspect underlying MARY BETH, patient advised outpatient sleep study with Dr. Mckeon. Follow up with pulmonary for bronchoscopy. Decrease IVF Trend lactate. Replete Phos Discussed with Dr. Joel, recent 2D echo 12/13 with EF 60-65%, grade II diastolic dysfunction, mild TR, RVSP 30 and Nuclear stress test with anterior ischemia unchanged from prior. Continue home ASA/zetia/bystolic/ranexa. GIPPX ranitidine DVTPPX lovenox with close monitoring of platelets. Plan discussed with patient and nursing, all questions answered. Visit type - Emergency Visit Emergency Visit: Yes ED Registration Date: 12/17/18 Care time: The patient presented to the Emergency Department on the above date and was hospitalized for further evaluation of their emergent condition. - New Patient This patient is new to me today: No - Critical Care Critical Care patient: No - Discharge Referral Referred to [facility] Med P.C.: No
[2018-12-18] MEDS ORDERED: SODIUM CHLORIDE 1,000 ML IV SCH (13:13)
--- NOTE | 2018-12-18 14:09 | PN ---
Progress Note (short form) - Note Progress Note: slept well with bipap no fevers noted nonproductive cough, rare Vital Signs Period Temp Pulse Resp BP Sys/Neri Pulse Ox Last 24 Hr 97.4 F-100.3 F 52-77 20-80 109-142/60-71 93-95 cor-rrr lungs decreased bs at bases ext no edema CBC, BMP 12/18/18 06:50 12/18/18 06:50 lactic acid 2.1 Microbiology 12/17/18 16:40 Urine For Antigen Detection Legionella Antigen - Final- negatve 12/17/18 16:40 Urine For Antigen Detection Streptococcus pneumoniae Antigen (M - Final-negative 12/17/18 11:19 Blood - Peripheral Venous Blood Culture - Preliminary NO GROWTH OBTAINED AFTER 24 HOURS, INCUBATION TO CONTINUE FOR 4 DAYS. 12/17/18 11:19 Blood - Peripheral Venous Blood Culture - Preliminary NO GROWTH OBTAINED AFTER 24 HOURS, INCUBATION TO CONTINUE FOR 4 DAYS. 12/17/18 12:10 Sputum - Expectorated Gram Stain - Final 12/17/18 12:10 Sputum - Expectorated Sputum Culture - Preliminary NORMAL RESPIRATORY CHARLENE 12/17/18 11:31 Urine - Urine Clean Catch Urine Culture - Final NO GROWTH OBTAINED Current Medications Acetaminophen (Tylenol -) 650 mg PO Q6H PRN PRN Reason: FEVER Last Admin: 12/17/18 22:42 Dose: 650 mg Albuterol Sulfate (Ventolin 0.083% Nebulizer Soln -) 1 amp NEB Q4H PRN PRN Reason: SHORT OF BREATH/WHEEZING Albuterol/Ipratropium (Duoneb -) 1 amp NEB RQID [facility] Last Admin: 12/18/18 12:35 Dose: 1 amp Alprazolam (Xanax -) 0.5 mg PO Q24H PRN PRN Reason: ANXIETY Last Admin: 12/17/18 22:42 Dose: 0.5 mg Ascorbic Acid (Vitamin C -) 500 mg PO DAILY [facility] Last Admin: 12/18/18 11:45 Dose: 500 mg Aspirin (Asa -) 81 mg PO DAILY [facility] Last Admin: 12/18/18 11:45 Dose: 81 mg Cholecalciferol (Vitamin D3 -) 1,000 unit PO DAILY [facility] Last Admin: 12/18/18 11:47 Dose: 1,000 unit Ezetimibe (Zetia -) 10 mg PO DAILY [facility] Last Admin: 12/18/18 11:47 Dose: 10 mg Enoxaparin Sodium (Lovenox -) 40 mg SQ DAILY ALEAH Last Admin: 12/18/18 11:46 Dose: 40 mg Vancomycin HCl (Vancomycin (Pre-Docked)) 1,000 mg in 250 mls @ 166.667 mls/hr IVPB Q12H ALEAH; Protocol Last Admin: 12/18/18 14:02 Dose: 166.667 mls/hr Piperacillin Sod/Tazobactam (Sod 4.5 gm/ Dextrose) 100 mls @ 200 mls/hr IVPB Q8H-IV ALEAH; Protocol Last Admin: 12/18/18 11:47 Dose: 200 mls/hr Sodium Chloride (Normal Saline -) 1,000 mls @ 50 mls/hr IV ASDIR [facility] Last Admin: 12/18/18 14:01 Dose: 50 mls/hr Magnesium Oxide (Mag-Ox -) 800 mg PO DAILY [facility] Stop: 12/20/18 10:01 Methylprednisolone Sodium Succinate (Solu-Medrol -) 40 mg IVPUSH Q12H [facility] Nebivolol (Bystolic -) 2.5 mg PO DAILY [facility] Last Admin: 12/18/18 11:46 Dose: 2.5 mg Potassium Phos/Sodium Phos (Phos-Nak Packet -) 2 packet PO BID [facility] Stop: 12/19/18 22:01 Ranitidine HCl (Zantac -) 150 mg PO BID [facility] Last Admin: 12/18/18 11:45 Dose: 150 mg Ranolazine (Ranexa -) 1,000 mg PO BID [facility] Last Admin: 12/18/18 11:46 Dose: 1,000 mg Tamsulosin HCl (Flomax -) 0.4 mg PO HS [facility] Last Admin: 12/17/18 22:22 Dose: 0.4 mg a/p recurrent RML pneumonia sepsis elevated lactic acid thrombocytopenia can d/c vancomycin continue zosyn Problem List - Problems (1) Sepsis Code(s): A41.9 - SEPSIS, UNSPECIFIED ORGANISM Qualifiers: Sepsis type: sepsis due to unspecified organism Qualified Code(s): A41.9 - Sepsis, unspecified organism (2) Pneumonia Code(s): J18.9 - PNEUMONIA, UNSPECIFIED ORGANISM Qualifiers: Pneumonia type: due to unspecified organism Laterality: right Lung location: unspecified part of lung Qualified Code(s): J18.9 - Pneumonia, unspecified organism (3) Coronary artery disease Code(s): I25.10 - ATHSCL HEART DISEASE OF [place] CORONARY ARTERY W/O ANG PCTRS Qualifiers: Coronary Disease-Associated Artery/Lesion type: [place] artery [place] vs. transplanted heart: [place] heart Associated angina: without angina Qualified Code(s): I25.10 - Atherosclerotic heart disease of [place] coronary artery without angina pectoris
[2018-12-18] MEDS: NAPH,MB-DB/K PH,MBDB POWDER PACKET PO SCH ×2 (14:12→21:37)
[2018-12-18] MEDS: MAGNESIUM OXIDE 400 MG TABLET (FP) PO SCH (14:13)
[2018-12-18] MEDS: TAMSULOSIN HCL 0.4 MG CAP PO SCH (21:37)
[2018-12-18] MEDS: ALPRAZolam 0.25 MG TABLET PO PRN (21:43)
[2018-12-19] MEDS ORDERED: DEXTROSE 5%-WATER 100 ML IVPB ONE ×3 (01:14→17:16)
[2018-12-19] MEDS ORDERED: PIPERACILLIN/TAZOBACTAM 4.5 GM VIAL IVPB ONE ×3 (01:14→17:16)
[2018-12-19] MEDS: PIPERACILLIN/TAZOB 4.5 GM 4.5 GM in DEXTROSE 5%-WATER 100 ML IVPB SCH ×3 (02:34→17:20)
[2018-12-19 07:18] LABS: BASO % 0.1 % (0-2.0); HEMATOCRIT 38.6 % (35.4-49); HEMOGLOBIN 13.1 GM/dL (11.7-16.9); LYMPH % 4.6 % (8-40); MCH 33.9 pg (25.7-33.7); MCHC 33.9 g/dl (32.0-35.9); MEAN PLT VOLUME 9.9 fl (7.5-11.1); MONO % 3.9 % (3.8-10.2); NEUT % 91.4 % (42.8-82.8); RBC 3.86 M/mm3 (4.00-5.60); RDW 14.2 % (11.9-15.9); WHITE BLOOD COUNT 13.2 K/mm3 (4.0-10.0)
[2018-12-19 07:34] LABS: BLOOD UREA NITROGEN 19.2 mg/dL (7-18); CALCIUM 8.5 mg/dL (8.5-10.1); CREATININE 0.9 mg/dL (0.55-1.3); MAGNESIUM 1.9 mg/dL (1.8-2.4); PHOSPHOROUS 2.7 mg/dL (2.5-4.9); POTASSIUM 3.5 mmol/L (3.5-5.1)
[2018-12-19] MEDS: ALBUTEROL SO4 2.5/IPRATROPIUM 0.5 INH SOL 3 ML VIAL.NEB. NEB SCH ×4 (08:00→20:05)
[2018-12-19] MEDS: methylPREDNISolone NA SUCC 40 MG/1 ML VIAL IVPUSH SCH (08:05)
[2018-12-19 08:32] LABS: PLATELET COUNT 136 K/MM3 (134-434)
[2018-12-19] MEDS ORDERED: PT OWN MED DRAWER 7, Y5N ONE (09:08)
[2018-12-19] MEDS: ENOXAPARIN NA (PORCINE) 40 MG/0.4 ML DISP.SYRIN SQ SCH (09:17)
[2018-12-19] MEDS: RANITIDINE HCL 150 MG TABLET (FP) PO SCH ×2 (09:19→22:13)
[2018-12-19] MEDS: NAPH,MB-DB/K PH,MBDB POWDER PACKET PO SCH ×2 (09:19→22:13)
[2018-12-19] MEDS: ASPIRIN 81 MG CHEWABLE TABLETS PO SCH (09:19)
[2018-12-19] MEDS: CHOLECALCIFEROL (VIT D3) 1,000 UNIT (25 MCG) TABLET PO SCH (09:19)
[2018-12-19] MEDS: RANOLAZINE E.R. 1,000 MG TABLET (FP) PO SCH ×2 (09:20→22:13)
[2018-12-19] MEDS: ASCORBIC ACID 500 MG TABLET (FP) PO SCH (09:20)
[2018-12-19] MEDS: NEBIVOLOL 2.5 MG TABLET (FP) PO SCH (09:20)
[2018-12-19] MEDS: MAGNESIUM OXIDE 400 MG TABLET (FP) PO SCH (09:20)
[2018-12-19] MEDS: EZETIMIBE 10 MG TABLET (FP) PO SCH (09:21)
--- NOTE | 2018-12-19 10:12 | PN ---
Progress Note, Physician History of Present Illness: pulmonary alert,no distress,-cp,-sob - Current Medication List Current Medications: Active Medications Acetaminophen (Tylenol -) 650 mg PO Q6H PRN PRN Reason: FEVER Last Admin: 12/17/18 22:42 Dose: 650 mg Albuterol Sulfate (Ventolin 0.083% Nebulizer Soln -) 1 amp NEB Q4H PRN PRN Reason: SHORT OF BREATH/WHEEZING Albuterol/Ipratropium (Duoneb -) 1 amp NEB RQID [facility] Last Admin: 12/18/18 20:31 Dose: 1 amp Alprazolam (Xanax -) 0.5 mg PO Q24H PRN PRN Reason: ANXIETY Last Admin: 12/18/18 21:43 Dose: 0.5 mg Ascorbic Acid (Vitamin C -) 500 mg PO DAILY [facility] Last Admin: 12/19/18 09:20 Dose: 500 mg Aspirin (Asa -) 81 mg PO DAILY [facility] Last Admin: 12/19/18 09:19 Dose: 81 mg Cholecalciferol (Vitamin D3 -) 1,000 unit PO DAILY [facility] Last Admin: 12/19/18 09:19 Dose: 1,000 unit Ezetimibe (Zetia -) 10 mg PO DAILY [facility] Last Admin: 12/19/18 09:21 Dose: 10 mg Enoxaparin Sodium (Lovenox -) 40 mg SQ DAILY [facility] Last Admin: 12/19/18 09:17 Dose: 40 mg Piperacillin Sod/Tazobactam (Sod 4.5 gm/ Dextrose) 100 mls @ 200 mls/hr IVPB Q8H-IV ALEAH; Protocol Last Admin: 12/19/18 09:18 Dose: 200 mls/hr Sodium Chloride (Normal Saline -) 1,000 mls @ 50 mls/hr IV ASDIR [facility] Last Admin: 12/18/18 14:01 Dose: 50 mls/hr Magnesium Oxide (Mag-Ox -) 800 mg PO DAILY [facility] Stop: 12/20/18 10:01 Last Admin: 12/19/18 09:20 Dose: 800 mg Methylprednisolone Sodium Succinate (Solu-Medrol -) 40 mg IVPUSH Q12H [facility] Last Admin: 12/19/18 08:05 Dose: 40 mg Nebivolol (Bystolic -) 2.5 mg PO DAILY [facility] Last Admin: 12/19/18 09:20 Dose: 2.5 mg Potassium Phos/Sodium Phos (Phos-Nak Packet -) 2 packet PO BID ALEAH Stop: 12/19/18 22:01 Last Admin: 12/19/18 09:19 Dose: 2 packet Ranitidine HCl (Zantac -) 150 mg PO BID [facility] Last Admin: 12/19/18 09:19 Dose: 150 mg Ranolazine (Ranexa -) 1,000 mg PO BID [facility] Last Admin: 12/19/18 09:20 Dose: 1,000 mg Tamsulosin HCl (Flomax -) 0.4 mg PO HS [facility] Last Admin: 12/18/18 21:37 Dose: 0.4 mg - Objective Vital Signs: Vital Signs Temperature 97.6 F 12/19/18 06:52 Pulse Rate 63 12/19/18 06:52 Respiratory Rate 20 12/19/18 06:52 Blood Pressure 111/60 12/19/18 06:52 O2 Sat by Pulse Oximetry (%) 93 L 12/18/18 21:00 Constitutional: Yes: Well Nourished, Calm Eyes: Yes: WNL HENT: Yes: WNL Neck: Yes: WNL Cardiovascular: Yes: Regular Rate and Rhythm, S1, S2 Respiratory: Yes: Rhonchi (few rhonchi) Gastrointestinal: Yes: Normal Bowel Sounds, Soft Extremities: Yes: WNL Edema: No Labs: CBC, BMP 12/19/18 06:37 12/19/18 06:37 INR, PTT INR 1.25 (0.83-1.09) H 12/17/18 11:10 Problem List - Problems (1) Hypoxia Code(s): R09.02 - HYPOXEMIA (2) Pneumonia Code(s): J18.9 - PNEUMONIA, UNSPECIFIED ORGANISM Qualifiers: Pneumonia type: due to unspecified organism Laterality: right Lung location: unspecified part of lung Qualified Code(s): J18.9 - Pneumonia, unspecified organism (3) Sepsis Code(s): A41.9 - SEPSIS, UNSPECIFIED ORGANISM Qualifiers: Sepsis type: sepsis due to unspecified organism Qualified Code(s): A41.9 - Sepsis, unspecified organism (4) Coronary artery disease Code(s): I25.10 - ATHSCL HEART DISEASE OF [place] CORONARY ARTERY W/O ANG PCTRS Qualifiers: Coronary Disease-Associated Artery/Lesion type: [place] artery [place] vs. transplanted heart: [place] heart Associated angina: without angina Qualified Code(s): I25.10 - Atherosclerotic heart disease of [place] coronary artery without angina pectoris (5) Diastolic dysfunction without heart failure Code(s): I51.89 - OTHER ILL-DEFINED HEART DISEASES (6) S/P CABG (coronary artery bypass graft) Code(s): Z95.1 - PRESENCE OF AORTOCORONARY BYPASS GRAFT Assessment/Plan IMP ACUTE HYPERCAPNEIC RESPIRATORY FAILURE IMPROVED RML CONSOLIDATION/ATELECTASIS PNEUMONIA COPD LLL NODULE ASHD S/P CABG HTN H/O PROSTATE CA ELEVATED LACTATE LEVEL IMPROVED DIASTOLIC HF PLAN ABX PER ID O2 INHALED BRONCHODILATORS MEDROL F/U CHEST X-RAYS DR HUNTER Problem List - Problems (1) Hypoxia Code(s): R09.02 - HYPOXEMIA (2) Pneumonia Code(s): J18.9 - PNEUMONIA, UNSPECIFIED ORGANISM Qualifiers: Pneumonia type: due to unspecified organism Laterality: right Lung location: unspecified part of lung Qualified Code(s): J18.9 - Pneumonia, unspecified organism (3) Sepsis Code(s): A41.9 - SEPSIS, UNSPECIFIED ORGANISM Qualifiers: Sepsis type: sepsis due to unspecified organism Qualified Code(s): A41.9 - Sepsis, unspecified organism (4) Coronary artery disease Code(s): I25.10 - ATHSCL HEART DISEASE OF [place] CORONARY ARTERY W/O ANG PCTRS Qualifiers: Coronary Disease-Associated Artery/Lesion type: [place] artery [place] vs. transplanted heart: [place] heart Associated angina: without angina Qualified Code(s): I25.10 - Atherosclerotic heart disease of [place] coronary artery without angina pectoris (5) Diastolic dysfunction without heart failure Code(s): I51.89 - OTHER ILL-DEFINED HEART DISEASES (6) S/P CABG (coronary artery bypass graft) Code(s): Z95.1 - PRESENCE OF AORTOCORONARY BYPASS GRAFT
[2018-12-19] MEDS ORDERED: predniSONE 20 MG TABLET (UD) PO SCH (10:30)
--- NOTE | 2018-12-19 10:30 | PN ---
Physical Exam: SUBJECTIVE: Patient seen and examined, breathing improved, states had some problem with bipap last night. Overall better, no new fevers, chills or concerns. OBJECTIVE: Vital Signs Period Temp Pulse Resp BP Sys/Neri Pulse Ox Last 24 Hr 97.5 F-97.8 F 62-65 20-20 101-124/52-74 93 Intake & Output 12/16/18 12/17/18 12/18/18 12/19/18 23:59 23:59 23:59 23:59 Intake Total 1825 2025 425 Output Total 1050 1250 250 Balance 775 775 175 Weight 231 lb 4 oz GENERAL: lying in bed in no acute distress Neck: soft, supple Chest: improved air entry, few right sided scattered rales, no wheezing Abdomen: soft, obese, NTExtremities: trace pedal edema Psych: Pleasant, co-operative CVS:S1S2 regular Laboratory Results - last 24 hr 12/18/18 12/19/18 12/19/18 06:50 06:37 06:37 WBC 13.2 H RBC 3.86 L Hgb 13.1 Hct 38.6 MCV 100.0 H MCH 33.9 H MCHC 33.9 RDW 14.2 Plt Count 136 D MPV 9.9 Absolute Neuts (auto) 12.0 H Neutrophils % 91.4 H Neutrophils % (Manual) 91.0 H Band Neutrophils % 3.0 Lymphocytes % 4.6 L D Lymphocytes % (Manual) 6.0 L D Monocytes % 3.9 D Monocytes % (Manual) 0 L D Eosinophils % 0.0 D Eosinophils % (Manual) 0.0 D Basophils % 0.1 Basophils % (Manual) 0.0 Myelocytes % (Man) 0 Promyelocytes % (Man) 0 Blast Cells % (Manual) 0 Nucleated RBC % 0 Metamyelocytes 0 Hypochromia 0 Platelet Estimate Decreased Polychromasia 0 Poikilocytosis 1+ Anisocytosis 0 Microcytosis 0 Macrocytosis 1+ Sodium Potassium Chloride Carbon Dioxide Anion Gap BUN Creatinine Est GFR (CKD-EPI)AfAm Est GFR (CKD-EPI)NonAf Random Glucose Lactic Acid 1.4 Calcium Phosphorus Magnesium 12/19/18 06:37 WBC RBC Hgb Hct MCV MCH MCHC RDW Plt Count MPV Absolute Neuts (auto) Neutrophils % Neutrophils % (Manual) Band Neutrophils % Lymphocytes % Lymphocytes % (Manual) Monocytes % Monocytes % (Manual) Eosinophils % Eosinophils % (Manual) Basophils % Basophils % (Manual) Myelocytes % (Man) Promyelocytes % (Man) Blast Cells % (Manual) Nucleated RBC % Metamyelocytes Hypochromia Platelet Estimate Polychromasia Poikilocytosis Anisocytosis Microcytosis Macrocytosis Sodium 143 Potassium 3.5 Chloride 108 H Carbon Dioxide 28 Anion Gap 8 BUN 19.2 H Creatinine 0.9 Est GFR (CKD-EPI)AfAm 96.49 Est GFR (CKD-EPI)NonAf 83.25 Random Glucose 159 H Lactic Acid Calcium 8.5 Phosphorus 2.7 Magnesium 1.9 Active Medications Generic Name Dose Route Start Last Admin Trade Name Freq PRN Reason Stop Dose Admin Acetaminophen 650 mg 12/17/18 15:17 12/17/18 22:42 Tylenol - PO 650 mg Q6H PRN Administration FEVER Albuterol Sulfate 1 amp 12/17/18 15:17 Ventolin 0.083% Nebulizer Soln - NEB Q4H PRN SHORT OF BREATH/WHEEZING Albuterol/Ipratropium 1 amp 12/17/18 16:00 12/18/18 20:31 Duoneb - NEB 1 amp RQID ALEAH Administration Alprazolam 0.5 mg 12/17/18 22:36 12/18/18 21:43 Xanax - PO 0.5 mg Q24H PRN Administration ANXIETY Ascorbic Acid 500 mg 12/18/18 10:00 12/19/18 09:20 Vitamin C - PO 500 mg DAILY ALEAH Administration Aspirin 81 mg 12/18/18 10:00 12/19/18 09:19 Asa - PO 81 mg DAILY ALEAH Administration Cholecalciferol 1,000 unit 12/18/18 10:00 12/19/18 09:19 Vitamin D3 - PO 1,000 unit DAILY ALEAH Administration Ezetimibe 10 mg 12/18/18 10:00 12/19/18 09:21 Zetia - PO 10 mg DAILY ALEAH Administration Enoxaparin Sodium 40 mg 12/18/18 10:00 12/19/18 09:17 Lovenox - SQ 40 mg DAILY ALEAH Administration Piperacillin Sod/Tazobactam 100 mls @ 200 mls/hr 12/17/18 22:00 12/19/18 09: 18 Sod 4.5 gm/ Dextrose IVPB 200 mls/hr Q8H-IV ALEAH Administration Protocol Magnesium Oxide 800 mg 12/18/18 13:15 12/19/18 09:20 Mag-Ox - PO 12/20/18 10:01 800 mg DAILY ALEAH Administration Nebivolol 2.5 mg 12/18/18 10:00 12/19/18 09:20 Bystolic - PO 2.5 mg DAILY ALEAH Administration Potassium Phos/Sodium Phos 2 packet 12/18/18 13:15 12/19/18 09:19 Phos-Nak Packet - PO 12/19/18 22:01 2 packet BID ALEAH Administration Prednisone 60 mg 12/19/18 10:30 Deltasone - PO DAILY ALEAH Ranitidine HCl 150 mg 12/17/18 22:00 12/19/18 09:19 Zantac - PO 150 mg BID ALEAH Administration Ranolazine 1,000 mg 12/17/18 22:00 12/19/18 09:20 Ranexa - PO 1,000 mg BID ALEAH Administration Tamsulosin HCl 0.4 mg 12/17/18 22:00 12/18/18 21:37 Flomax - PO 0.4 mg HS ALEAH Administration Microbiology 12/17/18 16:40 Urine For Antigen Detection Legionella Antigen - Final 12/17/18 16:40 Urine For Antigen Detection Streptococcus pneumoniae Antigen (M - Final 12/17/18 11:19 Blood - Peripheral Venous Blood Culture - Preliminary NO GROWTH OBTAINED AFTER 24 HOURS, INCUBATION TO CONTINUE FOR 4 DAYS. 12/17/18 11:19 Blood - Peripheral Venous Blood Culture - Preliminary NO GROWTH OBTAINED AFTER 24 HOURS, INCUBATION TO CONTINUE FOR 4 DAYS. 12/17/18 12:10 Sputum - Expectorated Gram Stain - Final 12/17/18 12:10 Sputum - Expectorated Sputum Culture - Preliminary NORMAL RESPIRATORY CHARLENE 12/17/18 11:31 Urine - Urine Clean Catch Urine Culture - Final NO GROWTH OBTAINED ASSESSMENT/PLAN: 73 yom with PMHx of HTN, HLD, CAD s/p CABG 03/1999(GARRISON->LAD, SVG->dRCA patent on 03/05/2015 cath), diastolic dysfunction, ?COPD from second hand smoking, HTN heart disease with labile pressures, hyperlipidemia, prostate ca (s/p prostatectomy, in remission), recently admitted to [facility] with RML PNA 10/27-07/01 d/ roque on abx/prednisone taper and home oxygen, seen in ED on 12/13 for positional dizziness, admitted with sepsis, ?LLL PNA. 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 ID/pulmonary input noted. Change to po prednisone, standing and prn nebs. patient agrees to outpatient sleep study with Dr. Mckeon. Lizbeth day 3, Blood cx neg so far. Urine PNA studies neg. Discuss with ID about PO abx in 24 hours. Bipap prn. Follow up with pulmonary for bronchoscopy, anticipate outpatient as discussed with Dr. Parker. D/c IVF, dc tele. Replete Phos Discussed with Dr. Joel, recent 2D echo 12/13 with EF 60-65%, grade II diastolic dysfunction, mild TR, RVSP 30 and Nuclear stress test with anterior ischemia unchanged from prior. Continue home ASA/zetia/bystolic/ranexa. GIPPX ranitidine DVTPPX lovenox with close monitoring of platelets. PT eval noted. Oxygen needs stable. Anticipate d/c home in 24 hours on po abx/steroids if continues to improve pending ID/pulmonary input. Plan discussed with patient and nursing, all questions answered. Visit type - Emergency Visit Emergency Visit: Yes ED Registration Date: 12/17/18 Care time: The patient presented to the Emergency Department on the above date and was hospitalized for further evaluation of their emergent condition. - New Patient This patient is new to me today: No - Critical Care Critical Care patient: No - Discharge Referral Referred to [facility] No
[2018-12-19] MEDS ORDERED: predniSONE 20 MG TABLET (UD) PO ONE (10:49)
[2018-12-19 11:31] LABS: ANISOCYTOSIS 0; MACROCYTOSIS 1+; PLATELET ESTIMATE DECREASED
--- NOTE | 2018-12-19 14:52 | PN ---
Progress Note (short form) - Note Progress Note: slept well with bipap no fevers noted nonproductive cough, rare still with vertigo and tremors Vital Signs Period Temp Pulse Resp BP Sys/Neri Pulse Ox Last 24 Hr 97.5 F-97.8 F 62-64 20-20 101-128/52-74 93-98 cor-rrr lungs decreased bs at bases abd soft,nt ext trace pedal edema CBC, BMP 12/19/18 06:37 12/19/18 06:37 Microbiology 12/17/18 12:10 Sputum - Expectorated Gram Stain - Final 12/17/18 12:10 Sputum - Expectorated Sputum Culture - Final NORMAL RESPIRATORY CHARLENE 12/17/18 11:19 Blood - Peripheral Venous Blood Culture - Preliminary NO GROWTH OBTAINED AFTER 48 HOURS, INCUBATION TO CONTINUE FOR 3 DAYS. 12/17/18 11:19 Blood - Peripheral Venous Blood Culture - Preliminary NO GROWTH OBTAINED AFTER 48 HOURS, INCUBATION TO CONTINUE FOR 3 DAYS. 12/17/18 16:40 Urine For Antigen Detection Legionella Antigen - Final 12/17/18 16:40 Urine For Antigen Detection Streptococcus pneumoniae Antigen (M - Final 12/17/18 11:31 Urine - Urine Clean Catch Urine Culture - Final NO GROWTH OBTAINED a/p recurrent RML pneumonia sepsis elevated lactic acid-resolved thrombocytopenia resolved leukocytosis partially secondary to steroids continue zosyn day #2-can change to po augmentin if no bronch is planned treat another 7 days should f/u with neurology regarding tremor and vertigo Problem List - Problems (1) Sepsis Code(s): A41.9 - SEPSIS, UNSPECIFIED ORGANISM Qualifiers: Sepsis type: sepsis due to unspecified organism Qualified Code(s): A41.9 - Sepsis, unspecified organism (2) Pneumonia Code(s): J18.9 - PNEUMONIA, UNSPECIFIED ORGANISM Qualifiers: Pneumonia type: due to unspecified organism Laterality: right Lung location: unspecified part of lung Qualified Code(s): J18.9 - Pneumonia, unspecified organism (3) Coronary artery disease Code(s): I25.10 - ATHSCL HEART DISEASE OF [place] CORONARY ARTERY W/O ANG PCTRS Qualifiers: Coronary Disease-Associated Artery/Lesion type: [place] artery [place] vs. transplanted heart: [place] heart Associated angina: without angina Qualified Code(s): I25.10 - Atherosclerotic heart disease of [place] coronary artery without angina pectoris
[2018-12-19] MEDS: TAMSULOSIN HCL 0.4 MG CAP PO SCH (22:13)
[2018-12-19] MEDS: ALPRAZolam 0.25 MG TABLET PO PRN (22:15)
[2018-12-20] MEDS ORDERED: PIPERACILLIN/TAZOBACTAM 4.5 GM VIAL IVPB ONE ×2 (01:44→08:36)
[2018-12-20] MEDS ORDERED: DEXTROSE 5%-WATER 100 ML IVPB ONE ×2 (01:44→08:36)
[2018-12-20] MEDS: PIPERACILLIN/TAZOB 4.5 GM 4.5 GM in DEXTROSE 5%-WATER 100 ML IVPB SCH ×2 (01:54→09:06)
[2018-12-20 06:12] LABS: BASO % 0.2 % (0-2.0); HEMATOCRIT 38.8 % (35.4-49); HEMOGLOBIN 13.3 GM/dL (11.7-16.9); LYMPH % 8.1 % (8-40); MCH 34.2 pg (25.7-33.7); MCHC 34.3 g/dl (32.0-35.9); MEAN CELL VOLUME 99.5 fl (80-96); MEAN PLT VOLUME 9.7 fl (7.5-11.1); MONO % 7.6 % (3.8-10.2); NEUT % 84.1 % (42.8-82.8); PLATELET COUNT 140 K/MM3 (134-434); RDW 14.2 % (11.9-15.9); WHITE BLOOD COUNT 9.2 K/mm3 (4.0-10.0)
[2018-12-20 06:37] LABS: BLOOD UREA NITROGEN 24.4 mg/dL (7-18); CALCIUM 8.4 mg/dL (8.5-10.1); MAGNESIUM 2.1 mg/dL (1.8-2.4); PHOSPHOROUS 3.3 mg/dL (2.5-4.9); POTASSIUM 3.6 mmol/L (3.5-5.1)
[2018-12-20] MEDS: ALBUTEROL SO4 2.5/IPRATROPIUM 0.5 INH SOL 3 ML VIAL.NEB. NEB SCH ×2 (07:40→11:43)
[2018-12-20 08:59] VITALS: BP 139/77; PULSE 55; TEMP 98.1
[2018-12-20] MEDS: ASPIRIN 81 MG CHEWABLE TABLETS PO SCH (09:01)
[2018-12-20] MEDS: MAGNESIUM OXIDE 400 MG TABLET (FP) PO SCH (09:02)
[2018-12-20] MEDS: ENOXAPARIN NA (PORCINE) 40 MG/0.4 ML DISP.SYRIN SQ SCH (09:02)
[2018-12-20] MEDS: ASCORBIC ACID 500 MG TABLET (FP) PO SCH (09:04)
[2018-12-20] MEDS: RANOLAZINE E.R. 1,000 MG TABLET (FP) PO SCH (09:04)
[2018-12-20] MEDS: RANITIDINE HCL 150 MG TABLET (FP) PO SCH (09:04)
[2018-12-20] MEDS: CHOLECALCIFEROL (VIT D3) 1,000 UNIT (25 MCG) TABLET PO SCH (09:05)
[2018-12-20] MEDS: EZETIMIBE 10 MG TABLET (FP) PO SCH (09:06)
[2018-12-20] MEDS: NEBIVOLOL 2.5 MG TABLET (FP) PO SCH (09:09)
--- NOTE | 2018-12-20 09:49 | PN ---
Progress Note, Physician History of Present Illness: pulmonary alert,no distress,-cp,-sob - Current Medication List Current Medications: Active Medications Acetaminophen (Tylenol -) 650 mg PO Q6H PRN PRN Reason: FEVER Last Admin: 12/17/18 22:42 Dose: 650 mg Albuterol Sulfate (Ventolin 0.083% Nebulizer Soln -) 1 amp NEB Q4H PRN PRN Reason: SHORT OF BREATH/WHEEZING Albuterol/Ipratropium (Duoneb -) 1 amp NEB RQID [facility] Last Admin: 12/20/18 07:40 Dose: 1 amp Alprazolam (Xanax -) 0.5 mg PO Q24H PRN PRN Reason: ANXIETY Last Admin: 12/19/18 22:15 Dose: 0.5 mg Ascorbic Acid (Vitamin C -) 500 mg PO DAILY [facility] Last Admin: 12/20/18 09:04 Dose: 500 mg Aspirin (Asa -) 81 mg PO DAILY [facility] Last Admin: 12/20/18 09:01 Dose: 81 mg Cholecalciferol (Vitamin D3 -) 1,000 unit PO DAILY [facility] Last Admin: 12/20/18 09:05 Dose: 1,000 unit Ezetimibe (Zetia -) 10 mg PO DAILY [facility] Last Admin: 12/20/18 09:06 Dose: 10 mg Enoxaparin Sodium (Lovenox -) 40 mg SQ DAILY [facility] Last Admin: 12/20/18 09:02 Dose: 40 mg Piperacillin Sod/Tazobactam (Sod 4.5 gm/ Dextrose) 100 mls @ 200 mls/hr IVPB Q8H-IV [facility]; Protocol Last Admin: 12/20/18 09:06 Dose: 200 mls/hr Magnesium Oxide (Mag-Ox -) 800 mg PO DAILY [facility] Stop: 12/20/18 10:01 Last Admin: 12/20/18 09:02 Dose: 800 mg Nebivolol (Bystolic -) 2.5 mg PO DAILY [facility] Last Admin: 12/20/18 09:09 Dose: Not Given Prednisone (Deltasone -) 60 mg PO DAILY [facility] Last Admin: 12/20/18 09:01 Dose: 60 mg Ranitidine HCl (Zantac -) 150 mg PO BID [facility] Last Admin: 12/20/18 09:04 Dose: 150 mg Ranolazine (Ranexa -) 1,000 mg PO BID [facility] Last Admin: 12/20/18 09:04 Dose: 1,000 mg Tamsulosin HCl (Flomax -) 0.4 mg PO HS [facility] Last Admin: 12/19/18 22:13 Dose: 0.4 mg - Objective Vital Signs: Vital Signs Temperature 98.1 F 12/20/18 08:00 Pulse Rate 55 L 12/20/18 08:00 Respiratory Rate 18 12/20/18 08:00 Blood Pressure 139/77 12/20/18 08:00 O2 Sat by Pulse Oximetry (%) 98 12/20/18 05:32 Constitutional: Yes: Well Nourished, Calm Eyes: Yes: WNL HENT: Yes: WNL Neck: Yes: WNL Cardiovascular: Yes: Regular Rate and Rhythm, S1, S2 Respiratory: Yes: CTA Bilaterally Gastrointestinal: Yes: Normal Bowel Sounds Extremities: Yes: WNL Edema: No Labs: CBC, BMP 12/20/18 05:20 12/20/18 05:20 INR, PTT INR 1.25 (0.83-1.09) H 12/17/18 11:10 Problem List - Problems (1) Hypoxia Code(s): R09.02 - HYPOXEMIA (2) Pneumonia Code(s): J18.9 - PNEUMONIA, UNSPECIFIED ORGANISM Qualifiers: Pneumonia type: due to unspecified organism Laterality: right Lung location: unspecified part of lung Qualified Code(s): J18.9 - Pneumonia, unspecified organism (3) Sepsis Code(s): A41.9 - SEPSIS, UNSPECIFIED ORGANISM Qualifiers: Sepsis type: sepsis due to unspecified organism Qualified Code(s): A41.9 - Sepsis, unspecified organism (4) Coronary artery disease Code(s): I25.10 - ATHSCL HEART DISEASE OF [place] CORONARY ARTERY W/O ANG PCTRS Qualifiers: Coronary Disease-Associated Artery/Lesion type: [place] artery [place] vs. transplanted heart: [place] heart Associated angina: without angina Qualified Code(s): I25.10 - Atherosclerotic heart disease of [place] coronary artery without angina pectoris (5) Diastolic dysfunction without heart failure Code(s): I51.89 - OTHER ILL-DEFINED HEART DISEASES (6) S/P CABG (coronary artery bypass graft) Code(s): Z95.1 - PRESENCE OF AORTOCORONARY BYPASS GRAFT Assessment/Plan IMP ACUTE HYPERCAPNEIC RESPIRATORY FAILURE IMPROVED RML CONSOLIDATION/ATELECTASIS PNEUMONIA COPD LLL NODULE ASHD S/P CABG HTN H/O PROSTATE CA ELEVATED LACTATE LEVEL IMPROVED DIASTOLIC HF PLAN ABX O2 INHALED BRONCHODILATORS OUTPATIENT FLEX BRONCH DR HUNTER Problem List - Problems (1) Hypoxia Code(s): R09.02 - HYPOXEMIA (2) Pneumonia Code(s): J18.9 - PNEUMONIA, UNSPECIFIED ORGANISM Qualifiers: Pneumonia type: due to unspecified organism Laterality: right Lung location: unspecified part of lung Qualified Code(s): J18.9 - Pneumonia, unspecified organism (3) Sepsis Code(s): A41.9 - SEPSIS, UNSPECIFIED ORGANISM Qualifiers: Sepsis type: sepsis due to unspecified organism Qualified Code(s): A41.9 - Sepsis, unspecified organism (4) Coronary artery disease Code(s): I25.10 - ATHSCL HEART DISEASE OF [place] CORONARY ARTERY W/O ANG PCTRS Qualifiers: Coronary Disease-Associated Artery/Lesion type: [place] artery [place] vs. transplanted heart: [place] heart Associated angina: without angina Qualified Code(s): I25.10 - Atherosclerotic heart disease of [place] coronary artery without angina pectoris (5) Diastolic dysfunction without heart failure Code(s): I51.89 - OTHER ILL-DEFINED HEART DISEASES (6) S/P CABG (coronary artery bypass graft) Code(s): Z95.1 - PRESENCE OF AORTOCORONARY BYPASS GRAFT
[2018-12-20] MEDS ORDERED: predniSONE 20 MG TABLET (UD) PO SCH (10:00)
--- NOTE | 2018-12-20 10:30 | DS ---
Physical Exam: SUBJECTIVE: Patient seen and examined, breathing markedly improved, dizziness improved. OBJECTIVE: Vital Signs Period Temp Pulse Resp BP Sys/Neri Pulse Ox Last 24 Hr 97.8 F-99.0 F 55-68 18-21 113-162/51-81 96-98 Intake & Output 12/17/18 12/18/18 12/19/18 12/20/18 23:59 23:59 23:59 23:59 Intake Total 1825 2025 1675 100 Output Total 1050 1250 975 Balance 775 775 700 100 Weight 231 lb 4 oz PHYSICAL EXAM GENERAL:sitting i bed, no acute distress Neck: thick, soft, supple Chest: Markedly improved air entry, few scattered right rales Abdomen:Soft, obese, NT Extremities: no edema or tremors currently Psych: Pleasant, co-operative LABS Laboratory Results - last 24 hr 12/19/18 12/20/18 12/20/18 06:37 05:20 05:20 WBC RBC Hgb Hct MCV MCH MCHC RDW Plt Count MPV Absolute Neuts (auto) Neutrophils % Neutrophils % (Manual) 89.0 H Band Neutrophils % 0.0 Lymphocytes % Lymphocytes % (Manual) 4.0 L D Monocytes % Monocytes % (Manual) 7 D Eosinophils % Eosinophils % (Manual) 0.0 Basophils % Basophils % (Manual) 0.0 Myelocytes % (Man) 0 Promyelocytes % (Man) 0 Blast Cells % (Manual) 0 Nucleated RBC % Metamyelocytes 0 Hypochromia 0 Platelet Estimate Decreased Polychromasia 0 Poikilocytosis 0 Anisocytosis 0 Microcytosis 0 Macrocytosis 1+ Sodium 141 Potassium 3.6 Chloride 106 Carbon Dioxide 30 Anion Gap 5 L BUN 24.4 H Creatinine 1.0 Est GFR (CKD-EPI)AfAm 84.95 Est GFR (CKD-EPI)NonAf 73.30 Random Glucose 198 H Hemoglobin A1c % 5.8 Calcium 8.4 L Phosphorus 3.3 Magnesium 2.1 12/20/18 05:20 WBC 9.2 RBC 3.90 L Hgb 13.3 Hct 38.8 MCV 99.5 H MCH 34.2 H MCHC 34.3 RDW 14.2 Plt Count 140 MPV 9.7 Absolute Neuts (auto) 7.8 Neutrophils % 84.1 H Neutrophils % (Manual) Band Neutrophils % Lymphocytes % 8.1 D Lymphocytes % (Manual) Monocytes % 7.6 D Monocytes % (Manual) Eosinophils % 0.0 Eosinophils % (Manual) Basophils % 0.2 Basophils % (Manual) Myelocytes % (Man) Promyelocytes % (Man) Blast Cells % (Manual) Nucleated RBC % 0 Metamyelocytes Hypochromia Platelet Estimate Polychromasia Poikilocytosis Anisocytosis Microcytosis Macrocytosis Sodium Potassium Chloride Carbon Dioxide Anion Gap BUN Creatinine Est GFR (CKD-EPI)AfAm Est GFR (CKD-EPI)NonAf Random Glucose Hemoglobin A1c % Calcium Phosphorus Magnesium Microbiology 12/17/18 12:10 Sputum - Expectorated Gram Stain - Final 12/17/18 12:10 Sputum - Expectorated Sputum Culture - Final NORMAL RESPIRATORY CHARLENE 12/17/18 11:19 Blood - Peripheral Venous Blood Culture - Preliminary NO GROWTH OBTAINED AFTER 48 HOURS, INCUBATION TO CONTINUE FOR 3 DAYS. 12/17/18 11:19 Blood - Peripheral Venous Blood Culture - Preliminary NO GROWTH OBTAINED AFTER 48 HOURS, INCUBATION TO CONTINUE FOR 3 DAYS. 12/17/18 16:40 Urine For Antigen Detection Legionella Antigen - Final 12/17/18 16:40 Urine For Antigen Detection Streptococcus pneumoniae Antigen (M - Final 12/17/18 11:31 Urine - Urine Clean Catch Urine Culture - Final NO GROWTH OBTAINED CT chest: Evaluation on dubose demonstrates extensive atelectasis of the right middle lobe which has worsened inspiratory study of 10/27/2018. There are a few scattered nodules that are largely unchanged. The largest of these is within the left lower lobe and measures approximately 11 mm. This nodule is somewhat more prominent. A follow-up PET/CT scan may be warranted. No pulmonary masses, areas of acute consolidation or pleural effusions have developed. Examination of the mediastinum demonstrates a few small lymph nodes scattered throughout the mediastinal chains. There is no evidence of mediastinal masses or fluid collections. The heart is nonenlarged. The patient is S/P CABG procedure. Evaluation of the upper abdomen demonstrates no acute pathology. There is no evidence of acute bony pathology. IMPRESSION: 1. Extensive right middle lobe atelectasis that has worsened since . 2. Scattered nodularity with the largest nodule measuring 11 mm within the left lower lobe. This nodule is slightly more prominent than on the previous exam and a follow-up CT scan is recommended. Please see above discussion. HOSPITAL COURSE: Date of Admission:12/17/18 Date of Discharge: 12/20/18 Minutes to complete discharge: 40 Discharge Summary Reason For Visit: HYPOXIA SEPSIS PNEUMONIA Current Active Problems Hypoxia (Acute) Pneumonia (Acute) Sepsis (Acute) Hospital Course: 73 yom with PMHx of HTN, HLD, CAD s/p CABG 03/1999(GARRISON->LAD, SVG->dRCA patent on 03/05/2015 cath), diastolic dysfunction, ?COPD from second hand smoking, HTN heart disease with labile pressures, hyperlipidemia, prostate ca (s/p prostatectomy, in remission), recently admitted to [facility] with RML PNA 10/27-07/01 d/ roque on abx/prednisone taper and home oxygen, seen in ED on 12/13 for positional dizziness, admitted with concerns for sepsis and PNA. He had CT chest showing worsening RML atelectasis vs airspace disease. He was seen by infectious disease and placed on zosyn and recommended bronchoscopy given recurrent RML pneumonia. Pulmonary was consulted and he was placed on IV solumedrol. His symptoms improved, he was afebrile and with baseline oxygenation prior to discharge and is advised outpatient bronchoscopy. He is also advised sleep study and follow up CT chest in 4-6 weeks. His dizziness improved, orthostatics were negative. He is transitioned to 7 days of augmentin and will be discharged home in stable condition with outpatient PCP and pulmonary follow up. Condition: Stable - Instructions Diet, Activity, Other Instructions: You were admitted with pneumonia and placed on intravenous antibiotics and steroids. Your symptoms improved. You were seen by infectious disease and power equipment mechanics instructor. MEDICATIONS: New: Augmentin twice daily for 7 days Prednisone taper as follows: 60 mg daily for 3 days (12/21, 12/22 and 12/23) 50 mg daily for 3 days (12/24, 12/25, 12/26) 40 mg daily for 3 days (12/27, 12/28, 12/29) 30 mg daily for 3 days (12/30, 12/31, 01/01) 20 mg daily for 3 days (01/02, 01/03, 01/04) 10 mg daily for 3 days (01/05, 01/06 and 01/07), then off Continue other medications as before INSTRUCTIONS: Oxygen 2-3 liters with rest, activity and sleep, taper as tolerated as symptoms improve. It is very important that you follow up with power equipment mechanics instructor to discuss Bronchscopy and sleep study Follow up CT chest in 4-[address] Mckeon. Incentive spirometry every 1 hour when awake as able over the next 1 week. (to be provided by RN on discharge) Please ensure to maintain adequate hydration Avoid sudden changes in position, allow enough time to sit up from sleeping and to stand up from sitting positions. FOLLOW UP: With Dr. Alejandro in [address] Mckeon in 1-2 weeks (please discuss bronchoscopy and sleep study testing and follow up CT chest in 4-6 weeks) With Dr. Joel in 2-3 weeks outpatient neurologist follow up for dizziness and tremors (Dr. Love at Dr. Alejandro's office) If you notice any new fevers, chills, trouble breathing, severe dizziness or passing out, or any new concerns, please call 911 or come to the ED. Referrals: Ramiro Alejandro MD [Primary Care Provider] - Pranay Mckeon MD, MD [Staff Physician] - Disposition: VNS/HOME HEALTH CARE - Home Medications Comprehensive Discharge Medication List: Ambulatory Orders Acetaminophen [Tylenol .Regular Strength -] 650 mg PO Q4H PRN #0 tablet Ascorbic Acid [Vitamin C] 500 mg PO DAILY #0 tablet 11/13/12 Aspirin [ASA -] 81 mg PO DAILY #0 tab.chew 11/13/12 Cholecalciferol (Vitamin D3) [Vitamin D] 1,000 mg PO DAILY #0 tablet 11/13/12 Docosahexanoic Acid/Epa [Fish Oil Softgel] 1,000 mg PO DAILY #0 capsule Multivit-Min/FA/Lycopene/Lut [Centrum Silver Tablet] 1 tab PO DAILY #0 tablet Alprazolam 0.5 mg PO DAILY PRN 10/27/18 Mirabegron [Myrbetriq] 25 mg PO DAILY 10/27/18 Nebivolol HCl [Bystolic] 2.5 mg PO DAILY 10/27/18 Ranitidine [Zantac -] 150 mg PO BID 10/27/18 Ranolazine [Ranexa -] 1,000 mg PO BID 10/27/18 Tamsulosin HCl [Flomax] 0.4 mg PO HS 10/27/18 Albuterol 0.083% Nebulizer Kate [Ventolin 0.083% Nebulizer Soln -] 1 amp NEB Q4H PRN amp 10/29/18 Ezetimibe [Zetia -] 10 mg PO DAILY tablet 10/29/18 Nebulizer [Aeroeclipse II] 1 each MC DAILY PRN #1 each 10/29/18 Amox-Tr/K Cl [Augmentin - 875Mg Tablet] 1 tab PO BID #14 tablet 12/20/18 Prednisone See Taper PO ASDIR #65 tablet 12/20/18 This patient is new to me today: No Emergency Visit: Yes ED Registration Date: 12/17/18 Care time: The patient presented to the Emergency Department on the above date and was hospitalized for further evaluation of their emergent condition. Critical Care patient: No - Discharge Referral Referred to [facility] No
[2018-12-20] MEDS ORDERED: NEBIVOLOL 2.5 MG TABLET (FP) PO SCH (11:00)
== END 2018-12-20 14:58 | disposition home health service (06) | DRG 871 ==
LOC: SUPCPDRO 10:53 → JER 10:53 → JERBED 12:21 → J4S 13:56
PROVIDERS: ADMIT Hospitalist; ATTEND Hospitalist
PROC: 5A09357 Assistance with Respiratory Ventilation, Less than 24 Consecutive Hours, Continuous Positive Airway Pressure (ICD-10-PCS; principal; 2018-12-18)
DX: A41.9 Sepsis, unspecified organism (principal); J96.21 Acute and chronic respiratory failure with hypoxia; J18.9 Pneumonia, unspecified organism; J96.22 Acute and chronic respiratory failure with hypercapnia; N17.9 Acute kidney failure, unspecified; J98.11 Atelectasis; I50.32 Chronic diastolic (congestive) heart failure; E87.2 Acidosis; J44.1 Chronic obstructive pulmonary disease with (acute) exacerbation; J44.0 Chronic obstructive pulmonary disease with (acute) lower respiratory infection; I25.10 Atherosclerotic heart disease of native coronary artery without angina pectoris; Z95.1 Presence of aortocoronary bypass graft; I48.91 Unspecified atrial fibrillation; Z95.0 Presence of cardiac pacemaker; Z85.46 Personal history of malignant neoplasm of prostate; Z79.01 Long term (current) use of anticoagulants; E78.5 Hyperlipidemia, unspecified; Z99.81 Dependence on supplemental oxygen; R91.1 Solitary pulmonary nodule; R73.9 Hyperglycemia, unspecified; I11.0 Hypertensive heart disease with heart failure; D69.6 Thrombocytopenia, unspecified; E83.39 Other disorders of phosphorus metabolism; R42 Dizziness and giddiness
CPT/HCPCS: 36415; 36600; 70450-TC; 71045-TC-FY; 71250-TC; 80048; 80053; 81003; 82803; 83036; 83605; 83735; 84100; 84484; 85025; 85610; 85730; 87040; 87070; 87086; 87205; 87804; 87899; 93005; 93010; 94640; 94660; 97116-GP; 97161-GP; 99281-25; 99283-25; J7030

== ENCOUNTER 2019-03-12 23:01 | Inpatient (IN) | payer OTHER, BC ==
--- NOTE | 2019-03-12 23:41 | PDOC ---
Attending Attestation - Resident Resident Name: Pranav Magaña - ED Attending Attestation I have performed the following: I have examined & evaluated the patient, The case was reviewed & discussed with the resident, I agree w/resident's findings & plan - HPI HPI: 03/13/19 00:01 Pt comes with weakness of legs that caused him to fall. He has a hx of spinal stenosis. He will get a CT head and CT Lspine prior to workup; need to r/o central involvement. 03/13/19 00:42 - Physicial Exam PE: 03/13/19 00:43 Agree with resident exam. - Medical Decision Making 03/13/19 01:35 Patient Name: CHAD MONTANO THIS IS A PRELIMINARY REPORT FROM [facility] DATE OF SERVICE: 2019-03-13 00:05:28 IMAGES: 340 EXAM: LUMBAR SPINE CT W/O CONTRAST HISTORY: Leg weakness COMPARISON: None. FINDINGS: No fracture or subluxation. No suspicious bone lesions. 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 There is diffuse central canal narrowing extending from the L2-L5 levels which may be secondary to congenitally short pedicles. There is mild bilateral facet joint arthrosis at the L2-3 level which also results in mild bilateral neural foraminal narrowing. There is a small disc bulge and mild bilateral facet joint arthrosis at L3-4 which results in moderate central canal narrowing and mild bilateral neuroforaminal narrowing. There is a small bulging disc osteophyte complex at the L4-5 level with moderate bilateral facet joint arthrosis resulting in mild canal narrowing and mild to moderate bilateral neural foraminal narrowing. There is a small bulging disc osteophyte complex at L5/S1 level with moderate bilateral facet joint arthrosis which results in mild central canal narrowing and mild to moderate neuroforaminal narrowing. 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 03/13/19 01:37 Patient Name: CHAD MONTANO THIS IS A PRELIMINARY REPORT FROM [facility] DATE OF SERVICE: 2019-03-13 00:02:33 IMAGES: 189 EXAM: HEAD CT WITHOUT CONTRAST HISTORY: Headache and neck pain COMPARISON: None. FINDINGS: The ventricular system is midline and nondilated. The sulcal pattern is normal for the patient's age. Mild small vessel ischemic changes are noted. There is no bleed, mass, extra-axial fluid collection or mass effect. No skull fracture or skull lesion is identified. The visualized paranasal sinuses and mastoid air cells are clear. IMPRESSION: No evidence of acute pathology. 03/13/19 01:40 Pt has normal labs except for doubling of his Creatinine. He will be admitted for his moderate spinal stenosis that is now causing difficulty walking or standing. He will require neurology input as well as possibly an MRI to further evaluate impingement on his spine.
--- NOTE | 2019-03-13 00:27 | PDOC ---
History of Present Illness - General Chief Complaint: Weakness Stated Complaint: FALL Time Seen by Provider: 03/12/19 23:31 - History of Present Illness Initial Comments: 03/13/19 00:26 73 y/o/m here for dizziness and weakness. He states that he has been having episodes of dizziness for the past few months and has been following up with his PMD and specialists. He has been treated for pneumonia twice in the last few months. He has been told by his doctors that he has vertigo. He has episodes of dizziness, worse when he gets up from sitting and seated positions. Tonight after eating dinner he got up and started to feel dizzy. He states that then his legs felt very heavy and he fell down. He denies any incontinence, loss of sensation, or loss of consciousness. He did have trouble getting up and moving his legs. He states that this episode occurred around 2129 and lasted about half an hour. When he fell he did not hit his head but did scrape his arm. He has had similar episodes in the post where his legs have felt heavy but today was worse than before. He denies any cough, fever, chest pain, SOB, abd pain, dysuria, or other symptoms. PMHx: COPD, HTN, CAD s/p CABG PNA, prostate cancer, spinal (cervical and lumbar ) stenosis Social: social alcohol use, denies tobacco use PMD: Dr. Alejandro Past History - Past Medical History Allergies/Adverse Reactions: Allergies Allergy/AdvReac Type Severity Reaction Status Date / Time No Known Allergies Allergy Verified 03/12/19 23:17 Home Medications: Ambulatory Orders Acetaminophen [Tylenol .Regular Strength -] 650 mg PO Q4H PRN #0 tablet Ascorbic Acid [Vitamin C] 500 mg PO DAILY #0 tablet 11/13/12 Aspirin [ASA -] 81 mg PO DAILY #0 tab.chew 11/13/12 Cholecalciferol (Vitamin D3) [Vitamin D] 1,000 mg PO DAILY #0 tablet 11/13/12 Docosahexanoic Acid/Epa [Fish Oil Softgel] 1,000 mg PO DAILY #0 capsule Multivit-Min/FA/Lycopene/Lut [Centrum Silver Tablet] 1 tab PO DAILY #0 tablet Alprazolam 0.5 mg PO DAILY PRN 10/27/18 Mirabegron [Myrbetriq] 25 mg PO DAILY 10/27/18 Nebivolol HCl [Bystolic] 2.5 mg PO DAILY 10/27/18 Ranitidine [Zantac -] 150 mg PO BID 10/27/18 Ranolazine [Ranexa -] 1,000 mg PO BID 10/27/18 Tamsulosin HCl [Flomax] 0.4 mg PO HS 10/27/18 Albuterol 0.083% Nebulizer Kate [Ventolin 0.083% Nebulizer Soln -] 1 amp NEB Q4H PRN amp 10/29/18 Ezetimibe [Zetia -] 10 mg PO DAILY tablet 10/29/18 Nebulizer [Aeroeclipse II] 1 each MC DAILY PRN #1 each 10/29/18 Prednisone See Taper PO ASDIR #65 tablet 12/20/18 Cancer: Yes (PROSTATE) Cardiac Disorders: Yes (CABG) COPD: Yes GI Disorders: Yes HTN: Yes Hypercholesterolemia: Yes Other medical history: vertigo - Surgical History Cardiac Surgery: Yes (TRIPLE BYPASS '99) - Suicide/Smoking/Psychosocial Hx Smoking Status: No Smoking History: Never smoked Have you smoked in the past 12 months: No Number of Cigarettes Smoked Daily: 0 'Breaking Loose' booklet given: 01/27/14 Hx Alcohol Use: No Drug/Substance Use Hx: No Substance Use Type: Alcohol Review of Systems - Review of Systems Able to Perform ROS?: Yes Constitutional: No: Chills, Fever HEENTM: No: Recent change in vision Respiratory: No: Cough, Shortness of Breath Cardiac (ROS): No: Chest Pain ABD/GI: No: Diarrhea, Nausea, Vomiting, Abdominal cramping : No: Dysuria Musculoskeletal: No: Back Pain Neurological: Yes: Dizziness. No: Headache, Numbness Endocrine: No: Excessive Sweating *Physical Exam - Vital Signs Last Vital Signs Temp Pulse Resp BP Pulse Ox 97.8 F 64 20 112/52 L 100 03/12/19 23:05 03/12/19 23:05 03/12/19 23:05 03/12/19 23:05 03/12/19 23:05 - Physical Exam General Appearance: Yes: Nourished, Appropriately Dressed HEENT: positive: EOMI, Normal Voice, Symmetrical Neck: positive: Trachea midline, Supple Respiratory/Chest: positive: Lungs Clear, Normal Breath Sounds. 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 He has had episodes of dizziness for the last few months and has close followup with his PCP and specialists and has been told he has veritgo. Today he had dizziness again and weakness in his legs. He did not have any loss of consciousness, incontinence, back pain, numbness or tingling. He did fall due to the weakness in his legs and was unable to get up for about half an hour. He states the symptoms occurred around 2129 today. -Workup with CBC, CMP, cardiac profile, EKG, CT head, CT lumbar spine, CXR, UA, Urine culture. -EKG reviewed: sinus rhythm with 1st degree AV block. No acute ischemic changes. 03/13/19 02:24 -CBC grossly normal. -CT head negative for acute pathology. -Lumbar spine CT - stenosis from L2-L5. -CMP significant for elevated BUN, creatinine. Creatinine is almost double previous reading. Patient's urine was very dark on visual inspection. -Will admit patient for TERE. -Patient admitted under Dr. Hayden *DC/Admit/Observation/Transfer Diagnosis at time of Disposition: TERE (acute kidney injury) - Discharge Dispostion Condition at time of disposition: Stable - Referrals - Patient Instructions - Post Discharge Activity
[2019-03-13 00:51] LABS: BASO % 0.7 % (0-2.0); EOS % 1.4 % (0-4.5); HEMATOCRIT 43.2 % (35.4-49); HEMOGLOBIN 14.6 GM/dL (11.7-16.9); LYMPH % 16.5 % (8-40); MCH 34.3 pg (25.7-33.7); MCHC 33.7 g/dl (32.0-35.9); MEAN CELL VOLUME 101.7 fl (80-96); MEAN PLT VOLUME 9.6 fl (7.5-11.1); MONO % 12.3 % (3.8-10.2); NEUT % 69.1 % (42.8-82.8); PLATELET COUNT 182 K/MM3 (134-434); RBC 4.25 M/mm3 (4.00-5.60); WHITE BLOOD COUNT 9.5 K/mm3 (4.0-10.0)
[2019-03-13 01:19] LABS: ALBUMIN 3.9 g/dl (3.4-5.0); BILIRUBIN,TOTAL 0.7 mg/dL (0.2-1); BLOOD UREA NITROGEN 30.9 mg/dL (7-18); CALCIUM 9.5 mg/dL (8.5-10.1); CREATININE 1.8 mg/dL (0.55-1.3); POTASSIUM 3.8 mmol/L (3.5-5.1); TOT PROT 6.7 g/dl (6.4-8.2)
[2019-03-13 01:35] LABS: EPI CELLS 17.5 /HPF (0-5/HPF); HYALINE CASTS 158 /lpf (0-8); URINE APPEARANCE CLOUDY; URINE BACTERIA 1.2 /hpf (NEGATIVE); URINE BILIRUBIN 1+ (NEGATIVE); URINE COLOR DK YELLOW; URINE GLUCOSE (UA) NEGATIVE (NEGATIVE); URINE KETONE TRACE (NEGATIVE); URINE LEUK ESTERASE NEGATIVE (NEGATIVE); URINE NITRITE NEGATIVE (NEGATIVE); URINE PROTEIN 1+ (NEGATIVE); URINE RBC 2 /hpf (0-4)
[2019-03-13] MEDS ORDERED: [UNRECOGNIZED DRUG - OTHER] MC PRN (03:04)
[2019-03-13] MEDS ORDERED: ALBUTEROL SO4 0.083% IH SOL 2.5 MG/3 ML VIAL.NEB. NEB PRN (03:04)
[2019-03-13] MEDS: SODIUM CHLORIDE 1,000 ML IV SCH ×2 (03:15→18:30)
--- NOTE | 2019-03-13 03:20 | HP ---
CHIEF COMPLAINT: LE weakness; dizziness PCP: dr. catalan HISTORY OF PRESENT ILLNESS: 73 y/o male with PMH of CABG, COPD, HTN, HLD prostate ca, spinal stenosis presents to the ED with complaints of feeling dizzy/off-balance and having LE weakness- he states that this has been ongoing for months and he has been told he has vertigo and was taking meclizine for a little while with little relief. he states that he feels off-balanced when he walks almost as "if he is drunk" , though he has never had any episodes of falling. Today he states that while he was barbeqing dinner outside he started to feel his knees buckling and he felt as if his legs were going to give out- he had to lower himself to the ground and shouted for his girlfriend to come and help him- he has never had an episode as severe as this before. he does admit to sitting outside in the sun for quite some time today. he denies any LE numbness.tingling no loss of bowel or bladder control; he denies being bit by anything- denies any sick contact or any recent travel ER course was notable for: (1)vitals wnl (2)Cr 1.8 (baseline around 1) (3)head Ct negative; lumbar CT: foraminal narrowing; central spinal stenosis Recent Travel: denies PAST MEDICAL HISTORY: see above PAST SURGICAL HISTORY: CABG Social History: Smoking:denies Alcohol:social alcohol use Drugs: denies Allergies No Known Allergies Allergy (Verified 03/12/19 23:17) HOME MEDICATIONS: Home Medications Medication Instructions Recorded Acetaminophen [Tylenol .Regular 650 mg PO Q4H PRN #0 tablet 11/13/12 Strength -] Ascorbic Acid [Vitamin C] 500 mg PO DAILY #0 tablet 11/13/12 Aspirin [ASA -] 81 mg PO DAILY #0 tab.chew 11/13/12 Cholecalciferol (Vitamin D3) 1,000 mg PO DAILY #0 tablet 11/13/12 [Vitamin D] Docosahexanoic Acid/Epa [Fish Oil 1,000 mg PO DAILY #0 capsule 11/13/12 Softgel] Multivit-Min/FA/Lycopene/Lut 1 tab PO DAILY #0 tablet 11/13/12 [Centrum Silver Tablet] Alprazolam 0.5 mg PO DAILY PRN 10/27/18 Mirabegron [Myrbetriq] 25 mg PO DAILY 10/27/18 Nebivolol HCl [Bystolic] 2.5 mg PO DAILY 10/27/18 Ranitidine [Zantac -] 150 mg PO BID 10/27/18 Ranolazine [Ranexa -] 1,000 mg PO BID 10/27/18 Tamsulosin HCl [Flomax] 0.4 mg PO HS 10/27/18 Albuterol 0.083% Nebulizer Kate 1 amp NEB Q4H PRN amp 10/29/18 [Ventolin 0.083% Nebulizer Soln -] Ezetimibe [Zetia -] 10 mg PO DAILY tablet 10/29/18 Nebulizer [Aeroeclipse II] 1 each MC DAILY PRN #1 each 10/29/18 Prednisone See Taper PO ASDIR #65 tablet 12/20/18 REVIEW OF SYSTEMS CONSTITUTIONAL: Absent: fever, chills, diaphoresis, generalized weakness, malaise, loss of appetite, weight change HEENT: Absent: rhinorrhea, nasal congestion, throat pain, throat swelling, difficulty swallowing, mouth swelling, ear pain, eye pain, visual changes CARDIOVASCULAR: Absent: chest pain, syncope, palpitations, irregular heart rate, lightheadedness , peripheral edema RESPIRATORY: Absent: cough, shortness of breath, dyspnea with exertion, orthopnea, wheezing, stridor, hemoptysis GASTROINTESTINAL: Absent: abdominal pain, abdominal distension, nausea, vomiting, diarrhea, constipation, melena, hematochezia GENITOURINARY: Absent: dysuria, frequency, urgency, hesitancy, hematuria, flank pain, genital pain MUSCULOSKELETAL: Absent: myalgia, arthralgia, joint swelling, back pain, neck pain SKIN: Absent: rash, itching, pallor HEMATOLOGIC/IMMUNOLOGIC: Absent: easy bleeding, easy bruising, lymphadenopathy, frequent infections ENDOCRINE: Absent: unexplained weight gain, unexplained weight loss, heat intolerance, cold intolerance NEUROLOGIC: Present: focal weakness, dizziness, unsteady gait Absent: headache, paresthesias, seizure, mental status changes, bladder or bowel incontinence PSYCHIATRIC: Absent: anxiety, depression, suicidal or homicidal ideation, hallucinations. PHYSICAL EXAMINATION Vital Signs - 24 hr 03/12/19 23:05 Temperature 97.8 F Pulse Rate 64 Respiratory 20 Rate Blood Pressure 112/52 L O2 Sat by Pulse 100 Oximetry (%) GENERAL: Awake, alert, and fully oriented, in no acute distress. EYES: PEERLA; EOMI; no scleral icterus . NECK:no JVD; no lymphadenopathy LUNGS: CTA B/L; no rales, rhonchi or wheezing . HEART: Regular rate and rhythm, normal S1 and S2 without murmur, rub or gallop. ABDOMEN: Soft, nontender, not distended, normoactive bowel sounds, no guarding, no rebound, no masses. No hepatomegaly or splenomegaly. EXTREMITIES: warm; well-perfused; no clubbing/cyanosis or edema NEUROLOGICAL: Cranial nerves II-XII intact. Normal speech. no facial asymmetryl ; B/L UE 5/5 strength sensation intact throughout; BL LE 5/5 strength sensation intact ; 2+ reflexes negative cerebellar signs PSYCHIATRIC: Cooperative. Good eye contact. Appropriate mood and affect. SKIN: Warm, dry, normal turgor, no rashes or lesions noted, normal capillary refill. Laboratory Results - last 24 hr 03/13/19 03/13/19 03/13/19 00:40 00:40 00:40 WBC 9.5 RBC 4.25 Hgb 14.6 Hct 43.2 MCV 101.7 H MCH 34.3 H MCHC 33.7 RDW 14.0 Plt Count 182 D MPV 9.6 Absolute Neuts (auto) 6.6 Neutrophils % 69.1 Lymphocytes % 16.5 D Monocytes % 12.3 H Eosinophils % 1.4 D Basophils % 0.7 D Nucleated RBC % 0 Sodium 139 Potassium 3.8 Chloride 100 Carbon Dioxide 30 Anion Gap 9 BUN 30.9 H Creatinine 1.8 H Est GFR (CKD-EPI)AfAm 41.74 Est GFR (CKD-EPI)NonAf 36.01 Random Glucose 107 H Calcium 9.5 Total Bilirubin 0.7 AST 35 ALT 30 Alkaline Phosphatase 44 L Creatine Kinase 90 Troponin I < 0.02 Total Protein 6.7 Albumin 3.9 Urine Color Urine Appearance Urine pH Ur Specific [place] Urine Protein Urine Glucose (UA) Urine Ketones Urine Blood Urine Nitrite Urine Bilirubin Urine Urobilinogen Ur Leukocyte Esterase Urine RBC (Auto) Urine Casts (Auto) U Epithel Cells (Auto) Urine Bacteria (Auto) 03/13/19 01:15 WBC RBC Hgb Hct MCV MCH MCHC RDW Plt Count MPV Absolute Neuts (auto) Neutrophils % Lymphocytes % Monocytes % Eosinophils % Basophils % Nucleated RBC % Sodium Potassium Chloride Carbon Dioxide Anion Gap BUN Creatinine Est GFR (CKD-EPI)AfAm Est GFR (CKD-EPI)NonAf Random Glucose Calcium Total Bilirubin AST ALT Alkaline Phosphatase Creatine Kinase Troponin I Total Protein Albumin Urine Color Dk yellow Urine Appearance Cloudy Urine pH 5.0 Ur Specific [place] 1.025 Urine Protein 1+ H Urine Glucose (UA) Negative Urine Ketones Trace H Urine Blood Negative Urine Nitrite Negative Urine Bilirubin 1+ H Urine Urobilinogen 1.0 Ur Leukocyte Esterase Negative Urine RBC (Auto) 2 Urine Casts (Auto) 158 U Epithel Cells (Auto) 17.5 Urine Bacteria (Auto) 1.2 ASSESSMENT/PLAN: 73 y/o male with PMH of CABG, COPD, HTN, HLD prostate ca, spinal stenosis presents to the ED with complaints of feeling dizzy/off-balance and having LE weakness #Lower Extremity weakness CT results noted above; may be coming from spinal stenosis -neuro consulted -RPR/B12/TSH pending -fall precautions -PT eval -will perform orthostatic vital signs -consider MRI -patient also found to be slightly bradycardic at 62 (could be contributing to weakness/dizziness?) #TERE Cr was 1.8 on arrival; baseline around 1.0 -NS@75mls/hr -will monitor -avoid nephrotoxic drugs #CAD c/w ASA #HTN holing patients nebivolol given slight bradycardia -will monitor hemodynamics #HLD c/w zetia #COPD c/w albuterol inhaler F/E/N ns@75mls/hr moitor electrolytes sodium-controlled diet dvt ppx: heparin sq Problem List - Problem (1) TERE (acute kidney injury) Code(s): N17.9 - ACUTE KIDNEY FAILURE, UNSPECIFIED (2) Dizziness Code(s): R42 - DIZZINESS AND GIDDINESS (3) Hyperlipidemia Code(s): E78.5 - HYPERLIPIDEMIA, UNSPECIFIED Qualifiers: Hyperlipidemia type: mixed hyperlipidemia Qualified Code(s): E78.2 - Mixed hyperlipidemia Visit type - Emergency Visit Emergency Visit: Yes ED Registration Date: 03/13/19 Care time: The patient presented to the Emergency Department on the above date and was hospitalized for further evaluation of their emergent condition. - New Patient This patient is new to me today: Yes Date on this admission: 03/13/19 - Critical Care Critical Care patient: No ATTENDING PHYSICIAN STATEMENT I saw and evaluated the patient. I reviewed the resident's note and discussed the case with the resident. I agree with the resident's findings and plan as documented. SUBJECTIVE: OBJECTIVE: ASSESSMENT AND PLAN:
--- NOTE | 2019-03-13 04:47 | PN ---
Teaching Attending Note Name of Resident: Maria Victoria Randall ATTENDING PHYSICIAN STATEMENT I saw and evaluated the patient. I reviewed the resident's note and discussed the case with the resident. I agree with the resident's findings and plan as documented. SUBJECTIVE: 73 y/o male with PMH of CABG, COPD, HTN, HLD prostate ca, spinal stenosis c/o recurrent feeling of dizziness and being off balance. Yesterday was walking and felt very unsteady on his feet and had to lower himself to ground. Denied any traumatic fall. He says that sometimes he feels vertigo when her turns his head briefly for a few seconds. Denied back pain. OBJECTIVE: Last Vital Signs Temp Pulse Resp BP Pulse Ox 97.8 F 64 20 104/57 L 97 03/12/19 23:05 03/13/19 03:25 03/13/19 03:25 03/13/19 03:25 03/13/19 03:25 gen-nad, aaox3 heent -at chest -scar, clear back - no spinal tenderness lower ext- left patellar brisk reflex, motor 5/5 in lower ext, neg babinski b/l , sensation intact in lower ext b/l Abnormal Lab Results 03/13/19 03/13/19 03/13/19 00:40 00:40 01:15 MCV 101.7 H MCH 34.3 H Monocytes % 12.3 H BUN 30.9 H Creatinine 1.8 H Random Glucose 107 H Alkaline Phosphatase 44 L Urine Protein 1+ H Urine Ketones Trace H Urine Bilirubin 1+ H Imaging studies reviewed ekg -1st degree heart block ASSESSMENT AND PLAN: Ataxia. May be multifactorial. Unclear cause may be related to his lumbar spinal stenosis. Hx of prostate cancer-possible mets to spine? although no back pain makes this less likely. Noted to have elevated MCV- should r/o vitamin b12 deficiency as well as hypothyroidism vertigo with sudden. Movement of head suggests possible benign positional vertigo component. Noted to be bradycardic- 1st degree heart block and on bblocker which may contribute to dizziness. Would hold xanax as this can induce ataxia as well. Pt does not walk with cane or walker. +TERE. -med/surg -vit b12 level -tsh -rpr -mri of lumbar spine -neurology consult -bed rest -PT evaluation for gait assessment -say hallpike maneuver -d/c bblocker -d/c benzo -check orthostatics -iv fluid hydration -dvt ppx
[2019-03-13 05:04] VITALS: BMI 32.7
[2019-03-13] MEDS: HEPARIN NA (PORCINE) 5,000 UNITS/ML 1ML VIAL SQ SCH ×3 (05:38→21:31)
[2019-03-13 08:02] LABS: BASO % 0.5 % (0-2.0); EOS % 1.7 % (0-4.5); HEMATOCRIT 38.4 % (35.4-49); HEMOGLOBIN 13.1 GM/dL (11.7-16.9); LYMPH % 28.1 % (8-40); MCH 34.5 pg (25.7-33.7); MEAN CELL VOLUME 101.6 fl (80-96); MEAN PLT VOLUME 9.5 fl (7.5-11.1); MONO % 15.4 % (3.8-10.2); NEUT % 54.3 % (42.8-82.8); PLATELET COUNT 162 K/MM3 (134-434); RBC 3.78 M/mm3 (4.00-5.60); RDW 13.6 % (11.9-15.9); WHITE BLOOD COUNT 7.2 K/mm3 (4.0-10.0)
[2019-03-13 09:00] LABS: ALBUMIN 3.4 g/dl (3.4-5.0); BILIRUBIN,TOTAL 0.6 mg/dL (0.2-1); BLOOD UREA NITROGEN 30.5 mg/dL (7-18); CALCIUM 9.4 mg/dL (8.5-10.1); CREATININE 1.6 mg/dL (0.55-1.3); MAGNESIUM 2.1 mg/dL (1.8-2.4); PHOSPHOROUS 2.5 mg/dL (2.5-4.9); TOT PROT 5.8 g/dl (6.4-8.2)
[2019-03-13] MEDS: EZETIMIBE 10 MG TABLET (FP) PO SCH (10:03)
[2019-03-13] MEDS: ASPIRIN 81 MG CHEWABLE TABLETS PO SCH (10:03)
--- NOTE | 2019-03-13 10:40 | CONSULT ---
Consult - text type - Consultation Consultation Note: [facility] *LIVE* Neurology PCP: Dr. catalan HISTORY OF PRESENT ILLNESS: 73 y/o male with PMH of CABG, COPD, HTN, HLD prostate ca, spinal stenosis presents to the ED with complaints of feeling dizzy/off-balance and having LE weakness- he stated that this has been ongoing for months and he has been told he has vertigo and was taking meclizine for a little while with little relief. He stated that he feels off-balanced when he walks almost as "if he is drunk" , though he has never had any episodes of falling. On day of admission, he stated that while he was barbequing dinner outside he started to feel his knees buckling and he felt as if his legs were going to give out- he had to lower himself to the ground and shouted for his girlfriend to come and help him- he has never had an episode as severe as this before. He does admit to sitting outside in the sun for quite some time. He denied any LE numbness, tingling, no loss of bowel or bladder control; he denied being bit by anything- denies any sick contact or any recent travel. Head Ct completed, chronic microvascular disease with no acute findings. Lumbar CT completed, results pending. MRI the lumbar spine ordered as well. Recent Travel: denies PAST MEDICAL HISTORY: see above PAST SURGICAL HISTORY: CABG Social History: Smoking:denies Alcohol:social alcohol use Drugs: denies Allergies No Known Allergies Allergy (Verified 03/12/19 23:17) HOME MEDICATIONS: Ambulatory Orders Acetaminophen [Tylenol .Regular Strength -] 650 mg PO Q4H PRN #0 tablet Ascorbic Acid [Vitamin C] 500 mg PO DAILY #0 tablet 11/13/12 Aspirin [ASA -] 81 mg PO DAILY #0 tab.chew 11/13/12 Cholecalciferol (Vitamin D3) [Vitamin D] 1,000 mg PO DAILY #0 tablet 11/13/12 Docosahexanoic Acid/Epa [Fish Oil Softgel] 1,000 mg PO DAILY #0 capsule Multivit-Min/FA/Lycopene/Lut [Centrum Silver Tablet] 1 tab PO DAILY #0 tablet Alprazolam 0.5 mg PO DAILY PRN 10/27/18 Mirabegron [Myrbetriq] 25 mg PO DAILY 10/27/18 Nebivolol HCl [Bystolic] 2.5 mg PO DAILY 10/27/18 Ranitidine [Zantac -] 150 mg PO BID 10/27/18 Ranolazine [Ranexa -] 1,000 mg PO BID 10/27/18 Tamsulosin HCl [Flomax] 0.4 mg PO HS 10/27/18 Albuterol 0.083% Nebulizer Kate [Ventolin 0.083% Nebulizer Soln -] 1 amp NEB Q4H PRN amp 10/29/18 Ezetimibe [Zetia -] 10 mg PO DAILY tablet 10/29/18 Nebulizer [Aeroeclipse II] 1 each MC DAILY PRN #1 each 10/29/18 Prednisone See Taper PO ASDIR #65 tablet 12/20/18 REVIEW OF SYSTEMS CONSTITUTIONAL: Absent: fever, chills, diaphoresis, generalized weakness, malaise, loss of appetite, weight change HEENT: Absent: rhinorrhea, nasal congestion, throat pain, throat swelling, difficulty swallowing, mouth swelling, ear pain, eye pain, visual changes CARDIOVASCULAR: Absent: chest pain, syncope, palpitations, irregular heart rate, lightheadedness , peripheral edema RESPIRATORY: Absent: cough, shortness of breath, dyspnea with exertion, orthopnea, wheezing, stridor, hemoptysis GASTROINTESTINAL: Absent: abdominal pain, abdominal distension, nausea, vomiting, diarrhea, constipation, melena, hematochezia GENITOURINARY: Absent: dysuria, frequency, urgency, hesitancy, hematuria, flank pain, genital pain MUSCULOSKELETAL: Absent: myalgia, arthralgia, joint swelling, back pain, neck pain SKIN: Absent: rash, itching, pallor HEMATOLOGIC/IMMUNOLOGIC: Absent: easy bleeding, easy bruising, lymphadenopathy, frequent infections ENDOCRINE: Absent: unexplained weight gain, unexplained weight loss, heat intolerance, cold intolerance NEUROLOGIC: Present: focal weakness, dizziness, unsteady gait Absent: headache, paresthesias, seizure, mental status changes, bladder or bowel incontinence PSYCHIATRIC: Absent: anxiety, depression, suicidal or homicidal ideation, hallucinations. PHYSICAL EXAMINATION Vital Signs Period Temp Pulse Resp BP Sys/Neri Pulse Ox Last 24 Hr 97.7 F-98.3 F 56-64 18-20 104-116/52-67 97-100 GENERAL: Awake, alert, and fully oriented, in no acute distress. EYES: PEERLA; EOMI; no scleral icterus . NECK:no JVD; no lymphadenopathy LUNGS: CTA B/L; no rales, rhonchi or wheezing . HEART: Regular rate and rhythm, normal S1 and S2 without murmur, rub or gallop. ABDOMEN: Soft, nontender, not distended, normoactive bowel sounds, no guarding, no rebound, no masses. No hepatomegaly or splenomegaly. EXTREMITIES: warm; well-perfused; no clubbing/cyanosis or edema NEUROLOGICAL: Cranial nerves II-XII intact. Normal speech. no facial asymmetryl ; B/L UE 5/5 strength sensation intact throughout; BL LE 5/5 strength sensation intact ; 2+ reflexes negative cerebellar signs PSYCHIATRIC: Cooperative. Good eye contact. Appropriate mood and affect. SKIN: Warm, dry, normal turgor, no rashes or lesions noted, normal capillary refill. CBCD WBC 7.2 K/mm3 (4.0-10.0) 03/13/19 07:40 RBC 3.78 M/mm3 (4.00-5.60) L 03/13/19 07:40 Hgb 13.1 GM/dL (11.7-16.9) 03/13/19 07:40 Hct 38.4 % (35.4-49) 03/13/19 07:40 MCV 101.6 fl (80-96) H 03/13/19 07:40 MCHC 34.0 g/dl (32.0-35.9) 03/13/19 07:40 RDW 13.6 % (11.9-15.9) 03/13/19 07:40 Plt Count 162 K/MM3 (134-434) 03/13/19 07:40 MPV 9.5 fl (7.5-11.1) 03/13/19 07:40 CMP Sodium 142 mmol/L (136-145) 03/13/19 07:40 Potassium 4.0 mmol/L (3.5-5.1) 03/13/19 07:40 Chloride 103 mmol/L (98-107) 03/13/19 07:40 Carbon Dioxide 31 mmol/L (21-32) 03/13/19 07:40 Anion Gap 8 MMOL/L (8-16) 03/13/19 07:40 BUN 30.5 mg/dL (7-18) H 03/13/19 07:40 Creatinine 1.6 mg/dL (0.55-1.3) H 03/13/19 07:40 Random Glucose 98 mg/dL (74-106) 03/13/19 07:40 Calcium 9.4 mg/dL (8.5-10.1) 03/13/19 07:40 Total Bilirubin 0.6 mg/dL (0.2-1) 03/13/19 07:40 AST 22 U/L (15-37) 03/13/19 07:40 ALT 26 U/L (13-61) 03/13/19 07:40 Alkaline Phosphatase 36 U/L (45-117) L 03/13/19 07:40 Total Protein 5.8 g/dl (6.4-8.2) L 03/13/19 07:40 Albumin 3.4 g/dl (3.4-5.0) 03/13/19 07:40 CARDIAC ENZYMES Creatine Kinase 90 U/L (26-308) 03/13/19 00:40 Troponin I < 0.02 ng/ml (0.00-0.05) 03/13/19 00:40 ASSESSMENT/PLAN: 73 y/o male with PMH of CABG, COPD, HTN, HLD prostate ca, spinal stenosis presents to the ED with complaints of feeling dizzy/off-balance and having LE weakness- he stated that this has been ongoing for months and he has been told he has vertigo and was taking meclizine for a little while with little relief. He stated that he feels off-balanced when he walks almost as "if he is drunk" , though he has never had any episodes of falling. On day of admission, he stated that while he was barbequing dinner outside he started to feel his knees buckling and he felt as if his legs were going to give out- he had to lower himself to the ground and shouted for his girlfriend to come and help him- he has never had an episode as severe as this before. He does admit to sitting outside in the sun for quite some time. He denied any LE numbness, tingling, no loss of bowel or bladder control; he denied being bit by anything- denies any sick contact or any recent travel. Head Ct completed, chronic microvascular disease with no acute findings. Lumbar CT completed, results pending. MRI lumbar spine ordered. May benefit from increased hydration, unfortunately meclizine has not been helpful for him in the past but we will reorder. Avoid sudden head movements. Does reports that his lower extremities feel strong and symmetric and are baseline. Do not suspect CVA. May benefit from vestibular therapy. Monitor blood pressure, maintain normotensive range.
--- NOTE | 2019-03-13 13:50 | HOSP ---
Subjective - Review of Symptoms Events since last encounter: Pt seen and examined. denies SOB or CP , or HALL , or weakness/numbness/tingling. he reports abnormal gait and occasional periods or legs giving away . no back pain. denies dizziness or vertigo before incident yesterday. reports positional vertigo with head movements in bed Exam: VS reviewed NAD CV: RRR, no MRG Lungs: CTAB Abd: obese, soft, NT, ND , NL BS Ext: no lewis , no erythema, no fungal infection among toes. Neuro: EOMI, no facial droop. tongue and uvula at mid line. strength 5/5 in upper and lwoer extremities proximally and distally . sensatio to ligh touch nl. reflexes 3+ biceps, 2+ knee jerk b/l. Nl proprioception. nL nose to finger gait: steady, wide based, no ataxia A/P 73 y/o man with h/o CAD, HTN, HLD, s/p CABG , diastolic dysfunction, COPD , hypertensive heart disease, hyperlipidemia, prostate ca (s/p prostatectomy), vertigo ( BPV), and recent admission for PNA x 2 who was dc on O2. He was admitted due to ataxic gait and weakness 1- Atxia and LE weakness with near fall: could be due to spinal stenosis, muscle deconditioning and vit B12 def. hypovolemia might be contributing - B12 is low Nl, will check MMA. if low will treat with IM B12, if Nl will treat with PO B12 daily - follow MRI of L spine - order MRI of C spine due to hyperreflexia noted in Upper extremities - PT eval. 2- H/o COPD, recent PNA x 2 , was dc on O2 . will repeat Pre-post - cont inhalers and nebs 3- H/o HTN: was on other meds but now only on bystolic per dr. middleton , his helper metal hanging - slight bradycardia, and 1st degree Av block on EKG. will cont BB and have hime f/u with Wisam Rodriguez 4- TERE : due to hypoveolemia. - cont IVF 4- H/o CAD: cont asa, ranexa and BB DVT Px : heparin Physical Examination Vital Signs: Vital Signs Temperature 97.7 F 03/13/19 10:00 Pulse Rate 56 L 09/22/19 10:00 Respiratory Rate 18 03/13/19 10:00 Blood Pressure 116/67 03/13/19 10:00 O2 Sat by Pulse Oximetry (%) 97 03/13/19 05:07 Labs: CBC, BMP 03/13/19 07:40 03/13/19 07:40
[2019-03-13] MEDS ORDERED: PT OWN MED DRAWER 7, Y5N ONE (16:57)
[2019-03-13] MEDS: DEXAMETHASONE SOD PHOSPHATE 4 MG/1 ML VIAL IVPUSH SCH (20:41)
--- NOTE | 2019-03-13 21:03 | PN ---
Progress Note (short form) - Note Progress Note: NEUROSURGERY CONSULT DICTATED H/o CABG, COPD, HTN, HLD, prostate ca, obesity, borderline hyperglycemia, spinal stenosis c/o feeling dizzy, loss of balance, and B LE weakness and B UE/ LE shakiness. Ongoing for months. Took meclizine with little relief. Walks almost as "if he is drunk" . [place] his knees buckling as if his legs were going to give out. Did not have episode as severe previously. Denies any LE weakness , numbness, tingling no loss of bowel or bladder control presently. Periodical episodes of sudden hands and legs shakiness which recovered spontaneously PE: AF, VSS HEENT- NC/AT; Neck-supple, decent ROM; CV- RR, incision healed; Lungs- CTA B; Abd- obese, benign; Ext- mild L ankle edema, mild R calf atrophy; decreased distal pulses B CN- intact II-XII; Motor- 5/5 B UE/LE; Sensory- intact LT, decreased R foot vibratory sensation; DTR- decreased B ankle reflexes No LB tenderness; negative SLR to [address]- moderate atrophy, moderate periventricular small vessel dz CT LS spine- multilevel DDDl moderate L4-5 stenosis, facet hypertrophy C spine MRI- multilevel DDD worst at C5-6, C6-7 > C3-4; moderate disc bulge with ostephute with mild C3-4 stenosis, chronic L C5-6 and C6-7 disc protrusion ; no cord compression or edema LS spine MRI - Congenital stenosis; multilevel DDD, moderate to marked L4-5 stenosis mostly lat recess and foramenal; moderate central and B L3-4 stenosis; moderate R L5-S1 stenosis Chronic moderate lumbar spinal stenosis, worst at L4-5 (sudden deterioration unlikely given degree of stenosis and all chronic findings on CT and MRI LS spine) Causes of symptoms likely multifactorial Short pulse of steroids reasonable Add Gabapentin for possible radiculopathy Consider baseline EMG/NCS to r/o neuropathy LE arterial doppler to r/o PAD Significant medical co-morbidities: should avoid surgery if possible ( pt without motpr weakness or sign of cauda equina syndrome) PT
[2019-03-13] MEDS ORDERED: RANOLAZINE E.R. 500 MG TABLET (FP) ONE (21:21)
[2019-03-13] MEDS: RANITIDINE HCL 150 MG TABLET (FP) PO SCH (21:32)
[2019-03-13] MEDS: RANOLAZINE E.R. 1,000 MG TABLET (FP) PO SCH (21:35)
[2019-03-13] MEDS ORDERED: TAMSULOSIN HCL 0.4 MG CAP PO SCH (22:00)
[2019-03-13] MEDS ORDERED: NEBIVOLOL 2.5 MG TABLET (FP) PO SCH (22:00)
[2019-03-13] MEDS: GABAPENTIN 100 MG CAPSULE (FP) PO SCH (23:25)
[2019-03-14] MEDS: DEXAMETHASONE SOD PHOSPHATE 4 MG/1 ML VIAL IVPUSH SCH ×2 (01:43→10:22)
[2019-03-14] MEDS: SODIUM CHLORIDE 1,000 ML IV SCH (06:44)
[2019-03-14] MEDS: GABAPENTIN 100 MG CAPSULE (FP) PO SCH (06:45)
[2019-03-14] MEDS: HEPARIN NA (PORCINE) 5,000 UNITS/ML 1ML VIAL SQ SCH ×2 (06:45→15:15)
--- NOTE | 2019-03-14 07:09 | EKG ---
Test Reason : Blood Pressure : / mmHG Vent. Rate : 064 BPM Atrial Rate : 064 BPM P-R Int : 212 ms QRS Dur : 112 ms QT Int : 460 ms P-R-T Axes : 037 -33 024 degrees QTc Int : 474 ms SINUS RHYTHM WITH 1ST DEGREE A-V BLOCK LEFT AXIS DEVIATION INCOMPLETE RIGHT BUNDLE BRANCH BLOCK ABNORMAL ECG WHEN COMPARED WITH ECG OF 17-DEC-2018 10:53, NO SIGNIFICANT CHANGE WAS FOUND Confirmed by NAOMIE RODRIGUEZ, LUCERO ([id number]) on 03/14/2019 7:08:49 AM Referred By: Confirmed By:LUCERO AKBAR MD
[2019-03-14 08:28] LABS: BLOOD UREA NITROGEN 22.7 mg/dL (7-18); CALCIUM 9.1 mg/dL (8.5-10.1); CREATININE 1.2 mg/dL (0.55-1.3); POTASSIUM 4.3 mmol/L (3.5-5.1)
--- NOTE | 2019-03-14 09:09 | PN ---
Progress Note (short form) - Note Progress Note: Neurology PCP: Dr. catalan HISTORY OF PRESENT ILLNESS: 73 y/o male with PMH of CABG, COPD, HTN, HLD prostate ca, spinal stenosis presents to the ED with complaints of feeling dizzy/off-balance and having LE weakness- he stated that this has been ongoing for months and he has been told he has vertigo and was taking meclizine for a little while with little relief. He stated that he feels off-balanced when he walks almost as "if he is drunk" , though he has never had any episodes of falling. On day of admission, he stated that while he was barbequing dinner outside he started to feel his knees buckling and he felt as if his legs were going to give out- he had to lower himself to the ground and shouted for his girlfriend to come and help him- he has never had an episode as severe as this before. He does admit to sitting outside in the sun for quite some time. He denied any LE numbness, tingling, no loss of bowel or bladder control; he denied being bit by anything- denies any sick contact or any recent travel. Head Ct completed, chronic microvascular disease with no acute findings. Lumbar CT completed, results reviewed. Discussed with patient results of MRI cervical and lumbar spine. Spinal stenosis noted on lumbar spine from L2-L5. Reviewed note from neurosurgeon Dr. Samuel Garcia, who does not recommend surgical intervention. I discussed this with the patient and he also would like to aavoid any surgical intervention. Dr. Garcia mention Decadron along with gabapentin, no objection to this although current dose of gabapentin of 100 mg 3 times a day is suboptimal and we'll increase this to300 mg twice a day. Patient does report feeling better and is starting to ambulate, advised caution with this. Allergies No Known Allergies Allergy (Verified 03/12/19 23:17) Active Medications Albuterol Sulfate (Ventolin 0.083% Nebulizer Soln -) 1 amp NEB Q4H PRN PRN Reason: SHORT OF BREATH/WHEEZING Aspirin (Asa -) 81 mg PO DAILY [facility] Last Admin: 03/13/19 10:03 Dose: 81 mg Dexamethasone Sodium Phosphate (Decadron Injection -) 4 mg IVPUSH Q8H-IV [facility] Last Admin: 03/14/19 01:43 Dose: 4 mg Ezetimibe (Zetia -) 10 mg PO DAILY [facility] Last Admin: 03/13/19 10:03 Dose: 10 mg Gabapentin (Neurontin -) 100 mg PO TID [facility] Last Admin: 03/14/19 06:45 Dose: 100 mg Heparin Sodium (Porcine) (Heparin -) 5,000 unit SQ TID [facility] Last Admin: 03/14/19 06:45 Dose: 5,000 unit Sodium Chloride (Normal Saline -) 1,000 mls @ 75 mls/hr IV ASDIR [facility] Last Admin: 03/14/19 06:44 Dose: 75 mls/hr Nebivolol (Bystolic -) 2.5 mg PO HS [facility] Last Admin: 03/13/19 21:32 Dose: 2.5 mg Non-Formulary Medication (Mirabegron [Myrbetriq]) 25 mg PO DAILY [facility] Ranitidine HCl (Zantac -) 150 mg PO BID [facility] Last Admin: 03/13/19 21:32 Dose: 150 mg Ranolazine (Ranexa -) 1,000 mg PO BID [facility] Last Admin: 03/13/19 21:35 Dose: 1,000 mg Tamsulosin HCl (Flomax -) 0.4 mg PO HS [facility] Last Admin: 03/13/19 21:31 Dose: 0.4 mg PHYSICAL EXAMINATION Vital Signs Period Temp Pulse Resp BP Sys/Neri Pulse Ox Last 24 Hr 97.6 F-98.4 F 52-73 18-18 113-118/56-67 92-95 GENERAL: Awake, alert, and fully oriented, in no acute distress. EYES: PEERLA; EOMI; no scleral icterus . NECK:no JVD; no lymphadenopathy LUNGS: CTA B/L; no rales, rhonchi or wheezing . HEART: Regular rate and rhythm, normal S1 and S2 without murmur, rub or gallop. ABDOMEN: Soft, nontender, not distended, normoactive bowel sounds, no guarding, no rebound, no masses. No hepatomegaly or splenomegaly. EXTREMITIES: warm; well-perfused; no clubbing/cyanosis or edema NEUROLOGICAL: Cranial nerves II-XII intact. Normal speech. no facial asymmetryl ; B/L UE 5/5 strength sensation intact throughout; BL LE 5/5 strength sensation intact ; 2+ reflexes negative cerebellar signs PSYCHIATRIC: Cooperative. Good eye contact. Appropriate mood and affect. SKIN: Warm, dry, normal turgor, no rashes or lesions noted, normal capillary refill. CBCD WBC 7.2 K/mm3 (4.0-10.0) 03/13/19 07:40 RBC 3.78 M/mm3 (4.00-5.60) L 03/13/19 07:40 Hgb 13.1 GM/dL (11.7-16.9) 03/13/19 07:40 Hct 38.4 % (35.4-49) 03/13/19 07:40 MCV 101.6 fl (80-96) H 03/13/19 07:40 MCHC 34.0 g/dl (32.0-35.9) 03/13/19 07:40 RDW 13.6 % (11.9-15.9) 03/13/19 07:40 Plt Count 162 K/MM3 (134-434) 03/13/19 07:40 MPV 9.5 fl (7.5-11.1) 03/13/19 07:40 CMP Sodium 141 mmol/L (136-145) 03/14/19 07:30 Potassium 4.3 mmol/L (3.5-5.1) 03/14/19 07:30 Chloride 106 mmol/L (98-107) 03/14/19 07:30 Carbon Dioxide 27 mmol/L (21-32) 03/14/19 07:30 Anion Gap 8 MMOL/L (8-16) 03/14/19 07:30 BUN 22.7 mg/dL (7-18) H 03/14/19 07:30 Creatinine 1.2 mg/dL (0.55-1.3) 03/14/19 07:30 Random Glucose 142 mg/dL (74-106) H 03/14/19 07:30 Calcium 9.1 mg/dL (8.5-10.1) 03/14/19 07:30 Total Bilirubin 0.6 mg/dL (0.2-1) 03/13/19 07:40 AST 22 U/L (15-37) 03/13/19 07:40 ALT 26 U/L (13-61) 03/13/19 07:40 Alkaline Phosphatase 36 U/L (45-117) L 03/13/19 07:40 Total Protein 5.8 g/dl (6.4-8.2) L 03/13/19 07:40 Albumin 3.4 g/dl (3.4-5.0) 03/13/19 07:40 CARDIAC ENZYMES Creatine Kinase 90 U/L (26-308) 03/13/19 00:40 Troponin I < 0.02 ng/ml (0.00-0.05) 03/13/19 00:40 ASSESSMENT/PLAN: 73 y/o male with PMH of CABG, COPD, HTN, HLD prostate ca, spinal stenosis presents to the ED with complaints of feeling dizzy/off-balance and having LE weakness- he stated that this has been ongoing for months and he has been told he has vertigo and was taking meclizine for a little while with little relief. He stated that he feels off-balanced when he walks almost as "if he is drunk" , though he has never had any episodes of falling. On day of admission, he stated that while he was barbequing dinner outside he started to feel his knees buckling and he felt as if his legs were going to give out- he had to lower himself to the ground and shouted for his girlfriend to come and help him- he has never had an episode as severe as this before. He does admit to sitting outside in the sun for quite some time. He denied any LE numbness, tingling, no loss of bowel or bladder control; he denied being bit by anything- denies any sick contact or any recent travel. Head Ct completed, chronic microvascular disease with no acute findings. Lumbar CT completed, results reviewed. Discussed with patient results of MRI cervical and lumbar spine. Spinal stenosis noted on lumbar spine from L2-L5. Reviewed note from neurosurgeon Dr. Samuel Garcia, who does not recommend surgical intervention. I discussed this with the patient and he also would like to aavoid any surgical intervention. Dr. Garcia mention Decadron along with gabapentin, no objection to this although current dose of gabapentin of 100 mg 3 times a day is suboptimal and we'll increase this to300 mg twice a day. Patient does report feeling better and is starting to ambulate, advised caution with this. Fall precautions recommended, consider outpatient physical therapy as well.
[2019-03-14] MEDS ORDERED: RANOLAZINE E.R. 500 MG TABLET (FP) ONE (09:29)
[2019-03-14] MEDS ORDERED: PATIENT'S OWN MEDICATION (NON-FORMULARY) (Mirabegron [Myrbetriq] 25 MG) PO SCH (10:00)
[2019-03-14] MEDS ORDERED: GABAPENTIN 300 MG CAPSULE (FP) PO SCH (10:00)
[2019-03-14] MEDS: RANITIDINE HCL 150 MG TABLET (FP) PO SCH (10:21)
[2019-03-14] MEDS: ASPIRIN 81 MG CHEWABLE TABLETS PO SCH (10:22)
[2019-03-14] MEDS: RANOLAZINE E.R. 1,000 MG TABLET (FP) PO SCH (10:22)
[2019-03-14] MEDS: EZETIMIBE 10 MG TABLET (FP) PO SCH (10:22)
[2019-03-14 10:49] VITALS: PULSE 63
--- NOTE | 2019-03-14 10:55 | CONS ---
DATE OF CONSULTATION: 03/13/2019 CHIEF COMPLAINT: Lumbar spinal stenosis. HISTORY OF PRESENT ILLNESS: Patient is a 73-year-old right-handed male with a history of obesity, borderline hyperglycemia, coronary artery disease status post triple bypass, COPD, hypertension, hypercholesterolemia, spinal stenosis who was complaining of dizziness, loss of balance, decreased arm or leg dexterity as well as bilateral lower extremity weakness. These symptoms have been going on for at least several months. He was taking meclizine with minimal relief. He was told that he walks like he is a drunk. Yesterday he felt his knees buckling as if his legs were giving out, and he felt numbness in his legs. In about 20 minutes, the sensation recovered spontaneously. Previously, he denies any lower back pain or sciatica. By the time the vertica architect arriving, he has no leg weakness, numbness, or tingling. He has no bowel or bladder dysfunction. These episodes of generally sudden and recover spontaneously. They are not related with particular activities. PAST MEDICAL HISTORY: Significant for coronary artery disease, COPD, hypertension, hypercholesterolemia, prostate cancer, obesity, borderline hyperglycemia, spinal stenosis. CURRENT MEDICATIONS: Include Myrbetriq, Decadron, Flomax, subcutaneous heparin, albuterol, Bystolic, Ranexa, Zetia, Zantac, baby aspirin. ALLERGIES: There is no drug allergy. FAMILY HISTORY: Noncontributory. SOCIAL HISTORY: In terms of social history, does not smoke, but he drinks alcohol socially. He lives at home. He is retired. REVIEW OF SYSTEMS: Otherwise negative for major constitutional, head, neck, cardiovascular, pulmonary, gastrointestinal, genitourinary, endocrinological, neurological, or psychological problems except for the above. PHYSICAL EXAMINATION: Vital Signs: Temperature is 97.9, blood pressure is 116/67 with pulse rate of 62, O2 saturation 92% on 2 L. HEENT: Shows him to be normocephalic, atraumatic, anicteric. Neck: Supple with physiological range of motion. Coronary: Demonstrates regular rhythm. Lungs: Clear bilaterally. Abdomen: Obese but benign. Extremities: Show no sign of DVT. He does have some mild left ankle edema. He has some right calf muscle atrophy as well. Neurologic: He is awake, alert, and oriented x4. Cranial nerve examination is intact 2-12. Motor examination shows 5/5 strength to bilateral upper and lower extremity without fasciculation or atrophy. Sensory examination is intact to light touch. He does have decreased right foot vibratory sensation. Deep tendon reflexes 2+ throughout except for absent bilateral ankle reflexes. Toes are equivocal. Exam of his lower back shows no paraspinal muscle spasm, and he has negative straight leg raise to 60 degrees bilaterally. Gait is not tested for safety reasons. LABORATORY EXAMINATION: Shows white blood cell count 7.2, hemoglobin is 13.1, platelet count is 162,000. Serum sodium is 142, potassium 4.0, BUN 30, creatinine 1.6. Urinalysis shows 2 RBCs. Leukocyte esterase is negative. There is trace ketone. CT scan of the head shows moderate cerebral atrophy with paraventricular small vessel disease. There is no acute bleed or fracture. MRI of the lumbar spine demonstrated multilevel degenerative disk disease. 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 There is yydgweco-fj-beyuus stenosis at L4-5 resulting in disk bulge, facet and ligamentum hypertrophy. There is gajcmjph-gl-qabtme right-sided lateral recess foraminal stenosis and moderate left-sided lateral recess foraminal stenosis. There is severe degenerative disk space narrowing at L5-S1 with right L5-S1 foraminal disk protrusion with osteophytes. There is moderate central and lateral recess stenosis at L3-4. MRI of the cervical spine demonstrates multilevel cervical degenerative disk disease. There is eonpkvm-wo-lqitvdx disk protrusion at C3-4 with mild spinal stenosis. There is left-sided C5-6, 6-7 chronic paracentral disk protrusion with mild lateral recess narrowing. There is no spinal cord compression or edema of the spinal cord. IMPRESSION: 1. Uxqbqxwa-ze-nhzfmu lumbar spinal stenosis worse at the L4-5 level. 2. Mild cervical strain. 3. Obesity and borderline hyperglycemia. 4. Hypertension/coronary artery disease. 5. Chronic obstructive pulmonary disease. 6. History of prostate cancer. RECOMMENDATIONS: Patient presents with at least several-month history of intermittent bilateral upper and lower extremity shakiness with associated decreased dexterity. He also had experienced episodes of leg weakness and numbness subjectively. These episodes of generally sudden and resolve spontaneously. He has no neck pain or lower back pain and has no cervical or lumbar radicular pain. Neurological examination is nonfocal except for decreased bilateral ankle reflexes, which could be the result of peripheral neuropathy. I would recommend lower extremity arterial Doppler study to rule out peripheral arterial occlusive disease. I took the liberty of starting him on gabapentin 300 mg p.o. t.i.d. for his lower extremity symptoms. An EMG and nerve conduction study would also be helpful to rule out peripheral neuropathy versus chronic radiculopathy. I reviewed the MRI and CT scan in detail, and my opinion is that even though he has some moderate-to- marked stenosis, all these findings are chronic and should not be giving rise to some of the sudden symptoms the patient is describing. A course of physical therapy is recommended. The patient would like to avoid an operation as well, which is reasonable given his multiple medical comorbidities. Furthermore, he has no signs of bowel or bladder dysfunction at this time or significant neurological deficit. The pros and cons of treatment approaches were discussed. The patient was also advised to lose weight to help improve his overall medical conditions. SHIMA FORBES M.D. [id number] MTDD
--- NOTE | 2019-03-14 14:28 | DS ---
Physical Exam: SUBJECTIVE: Patient seen and examined OBJECTIVE: Vital Signs Period Temp Pulse Resp BP Sys/Neri Pulse Ox Last 24 Hr 97.6 F-98.4 F 52-73 18-18 98-116/57-67 92-95 PHYSICAL EXAM GENERAL: The patient is awake, alert, and fully oriented, in no acute distress. HEAD: Normal with no signs of trauma. EYES: PERRL, extraocular movements intact, sclera anicteric, conjunctiva clear. ENT: Ears normal, nares patent, oropharynx clear without exudates, moist mucous membranes. NECK: Trachea midline, full range of motion, supple. LUNGS: Breath sounds equal, clear to auscultation bilaterally, no wheezes, no crackles, no accessory muscle use. HEART: Regular rate and rhythm, S1, S2 without murmur, rub or gallop. ABDOMEN: Soft, nontender, nondistended, normoactive bowel sounds, no guarding, no rebound, no hepatosplenomegaly, no masses. EXTREMITIES: 2+ pulses, warm, well-perfused, no edema. NEUROLOGICAL: Cranial nerves II through XII grossly intact. Normal speech, gait not observed. PSYCH: Normal mood, normal affect. SKIN: Warm, dry, normal turgor, no rashes or lesions noted. LABS Laboratory Results - last 24 hr 03/14/19 07:30 Sodium 141 Potassium 4.3 Chloride 106 Carbon Dioxide 27 Anion Gap 8 BUN 22.7 H Creatinine 1.2 Est GFR (CKD-EPI)AfAm 68.15 Est GFR (CKD-EPI)NonAf 58.80 Random Glucose 142 H Calcium 9.1 HOSPITAL COURSE: Date of Admission:03/13/19 Date of Discharge: 03/14/19 Minutes to complete discharge: 40 Discharge Summary Reason For Visit: ACUTE KIDNEY INJURY Condition: Improved - Instructions Diet, Activity, Other Instructions: You were in the hospital because you had acute onset lower extremity weakness associated with a fall and a tremulous sensation in your arms and legs. While in the hospital MRI imaging revealed that you had spinal stenosis and narrowing of the openings where the nerves exit the vertebrae. This is most likely what is causing your symptoms. We are discharging you with decadron for 2 days and you should follow up with neurology as an outpatient. Your blood pressure was also low, so you should STOP taking your Bystolic tonight until you see Dr. Joel, your didactic instructor tomorrow. Please continue taking your home medications as prescribed with the following changes: - ADD Decadron 4mg, by mouth twice per day, start toniight for 2 more days. -ADD: Gabapentin 300mg by mouth twice per day -ADD; B12 1000mcg daily until you get results of B12 studies - STOP Bystolic until you see your didactic instructor Dr. Joel tomorrow. Please see the following physicians within 1 week of discharge from the hospital : - Dr. Alejandro, your primary care doctor, to review results of your B12 and methylmalonic acid studies and assess need for B12 injections. You will also need to arrange doppler studies of the lower extremity. - Dr. Garcia, the neurosurgeon, to follow up on outpatient nerve conduction studies and EMG - Dr. Joel, the didactic instructor, to follow up on you BP and decide whether it is safe to resume Bystolic Please do not drive a car until you see a neurologist. This is because you have benign positional vertigo which can make you dizzy when you turn your head. This can be dangerous when driving. If you have continued symptoms of weakness, falling, or dizziness, please return to the Emergency Department immediately. Referrals: Gladis Joel MD [Staff Physician] - 03/15/19 Ramiro Alejandro MD [Primary Care Provider] - 1 Week Ramiro Garcia MD [Staff Physician] - 1 Week Disposition: HOME - Home Medications Comprehensive Discharge Medication List: Ambulatory Orders Aspirin [ASA -] 81 mg PO DAILY #0 tab.chew 11/13/12 Multivit-Min/FA/Lycopene/Lut [Centrum Silver Tablet] 1 tab PO DAILY #0 tablet Alprazolam 0.25 mg PO DAILY PRN 10/27/18 Mirabegron [Myrbetriq] 25 mg PO DAILY 10/27/18 Ranitidine [Zantac -] 150 mg PO BID 10/27/18 Ranolazine [Ranexa -] 1,000 mg PO BID 10/27/18 Tamsulosin HCl [Flomax] 0.4 mg PO HS 10/27/18 Albuterol 0.083% Nebulizer Kate [Ventolin 0.083% Nebulizer Soln -] 1 amp NEB Q4H PRN amp 10/29/18 Ezetimibe [Zetia -] 10 mg PO DAILY tablet 10/29/18 Acetaminophen [Tylenol .Regular Strength -] 650 mg PO Q6H PRN 03/13/19 Cyanocobalamin (Vitamin B-12) [B-12 Dots] 1,000 mcg PO DAILY #60 tablet Dexamethasone [Decadron] 4 mg PO BID #5 tablet 03/14/19 Gabapentin [Neurontin -] 300 mg PO BID #60 capsule 03/14/19 This patient is new to me today: Yes Date on this admission: 03/14/19 Emergency Visit: Yes ED Registration Date: 03/13/19 Care time: The patient presented to the Emergency Department on the above date and was hospitalized for further evaluation of their emergent condition. Critical Care patient: No - Discharge Referral Referred to [facility] Med [facility].C[facility] No ATTENDING PHYSICIAN STATEMENT I saw and evaluated the patient. I reviewed the resident's note and discussed the case with the resident. I agree with the resident's findings and plan as documented. SUBJECTIVE: OBJECTIVE: ASSESSMENT AND PLAN:
--- NOTE | 2019-03-14 14:46 | PN ---
Teaching Attending Note Name of Resident: Татьяна Morgan ATTENDING PHYSICIAN STATEMENT I saw and evaluated the patient. I reviewed the resident's note and discussed the case with the resident. I agree with the resident's findings and plan as documented. SUBJECTIVE: No fever or chills . No HALL. feels fine today , walked with PT with no issues OBJECTIVE: NAD CV: RRR, no MRG Lungs: CTAB Ext: no edema , no erythema Neuro: Strength 5/5 in upper and lower extremities proximally and distally . sensation to ligh touch nl. reflexes 2+ biceps, 3+ knee jerk b/l. Gait:Nl ans steady . watched walking with PT A/P : 73 y/o man with h/o CAD, HTN, HLD, s/p CABG , diastolic dysfunction, COPD , hypertensive heart disease, hyperlipidemia, prostate ca (s/p prostatectomy), vertigo (BPV), and recent admission for PNA x 2 who was dc on O2. He was admitted due to ataxic gait and weakness 1- Intermittent LE weakness. multifactorial ( spinal stenosis , b12 def , and deconditioning ) - did well with PT - appreciate Neuro sx input regarding spinal stenosis and C spine MRI findings. - cont decadrone for 2 more days - cont neurontin - f/u as out pt for EMG and NCS, adn Arterial doppler - B12 supplements po , pending MMA. this is to be followed as outpt 2- H/o COPD, recent PNA x 2. pre-post done , he does not need O2 at dc . f/u with pulm or sleep study - cont inhalers and nebs 3- H/o HTN: BP in 90s today , no orthostatic drop he was asked to hold evenign dose of bystolic tongiht until he follows with dr. Joel tomorrow ( has apt ) 4- TERE : due to hypoveolemia. resolved 5- H/o CAD: cont asa, ranexa and BB dc home today f/u card, neuro sx, PCP
[2019-03-14 15:46] VITALS: BP 118/60; TEMP 97.6
--- NOTE | 2019-03-14 16:26 | CONS ---
DATE OF CONSULTATION: 03/14/2019 PHYSICAL MEDICINE REHABILITATION CONSULTATION REFERRING PHYSICIAN: Cristiana Dial MD I saw the patient in examination and for consideration for electrodiagnostic studies. HISTORY OF PRESENT ILLNESS: The patient is a 73-year-old man with past medical history of lumbar canal stenosis as well as prostate cancer, coronary artery bypass graft who was admitted after presenting to the emergency room on March 12, 2019, with loss of balance and lower extremity weakness. Patient noted progressive weakness over the last few months and developed vertigo, feeling off balance. He underwent multiple imaging studies including CAT scan of the head on March 13, 2019, which showed moderate volume loss and mild chronic microvascular ischemic disease without any evidence of acute intracranial pathology. Because of the lower extremity weakness he had a CT of the lumbar spine which demonstrated mild to moderate degenerative canal stenosis at L3-4 and L4-5 in addition to other degenerative changes and facet arthropathy. Patient subsequently underwent an MRI of the lumbar spine which demonstrated severe degenerative disk disease at L5-S1, moderate disk disease at L4-5, severe central canal stenosis at L4-5 and severe canal stenosis at L2-3 and L3-4. Patient also underwent cervical spine MRI which also showed degenerative changes including mild canal stenosis at C3-4, mainly at C3-4. Patient was seen by Dr. Ramiro Garcia in consultation who did not feel he was a good surgical candidate. He was started on gabapentin and also referred for electrodiagnostic evaluation. I attempted to bring the patient down for EMG, but apparently there were discharge orders for the patient and we discussed doing this test as an outpatient in addition to getting him set up for physical therapy which was recommended. Patient's gabapentin is being increased and he may be also getting some oral steroids. Review of laboratory values on March 13, WBC is 9.5, hemoglobin 14.6, platelet count 182, stable CBC on March 13. His chemistry on March 13 showed an elevated BUN of 30.9 to creatinine 1.8. Alkaline phosphatase was low at 44, otherwise unremarkable study. His B12 level, however, was borderline at 332. Repeat chemistry on March 14 showed sodium 141, potassium 4.3, BUN improved to 22.7 and creatinine improved to 1.2. His methylmalonic acid is still pending from March 13. TSH normal at 0.80. Patient was seen by physical therapy and was independent, ambulatory without assistive device up to 300 feet and fairly steady gait. REVIEW OF PAST MEDICAL AND SURGICAL HISTORY: Taken from his medical record and includes COPD as well as hypertension, coronary artery bypass graft, hyperlipidemia, prostate cancer, lumbar canal stenosis. SOCIAL HISTORY: Premorbidly independent. Social alcohol intake. No tobacco or illicit drugs. ALLERGIES: None noted. REVIEW OF SYSTEMS: No lightheadedness, dizziness. No blurry vision, double vision. No nausea, vomiting, difficulty swallowing, difficulty chewing. No neck pain. He does get some back discomfort, weakness of the lower extremities, but no progressive numbness, tingling. He feels unsteady with his balance and occasionally some vertigo type symptoms. No numbness, tingling, weakness in the upper extremities. No progressive weakness in the lower extremities. No bowel, bladder incontinence. No fever, chills. No chest pain, shortness of breath. PHYSICAL EXAMINATION: GENERAL: Patient is seen sitting at the edge of the bed. No acute distress. HEENT: He is normocephalic and atraumatic. His extraocular muscles appear intact. NECK: Supple. EXTREMITIES: Without any pitting edema or calf tenderness. NEUROMUSCULAR: He is awake, alert, fully oriented x3. Cranial nerves II through XII grossly intact. He has got good strength and range throughout his upper extremities with normal sensation and no atrophy. He has good strength and range throughout the lower extremities, normal pin prick, symmetric reflexes although they are depressed. He has limited lumbar extension, better tolerated forward flexion. OVERALL IMPRESSION: 1. Deficits in mobility, activities of daily livings multifactorial. 2. Lumbar canal stenosis with neurogenic claudication probably accounting for some of the feeling of weakness in the lower extremities. 3. Patient's B12 level is borderline, cannot rule out early B12 deficiency. Methylmalonic acid level is pending. 4. Chronic obstructive pulmonary disease. 5. Coronary artery bypass graft. 6. Mild cervical canal stenosis which also could account for some of the loss of balance. 7. Probable elevated body mass index. 8. History of hypertension. 9. Borderline hyperglycemia. 10. History of prostate cancer. PLAN AND SUGGESTION: 1. Will schedule electrodiagnostic studies as an outpatient. Patient given contact information. 2. Will arrange for outpatient physical therapy. 3. Increase gabapentin as tolerated and the symptom. 4. Weight reduction. 5. Check methylmalonic acid and consider B12 injections pending results. 6. Follow up with neurology and neurosurgery as directed. Thank you for this consultation. DIDI ROPER M.D. SAMIR/[id number]
[2019-03-20 12:07] LABS: METHYLMALONIC ACID- 287 nmol/L (0-378)
== END 2019-03-14 16:22 | disposition home or self-care (01) | DRG 552 ==
LOC: JER 23:01 → JERBED 03-13 02:11 → J5S 03-13 04:28
PROVIDERS: ADMIT Internal Medicine; ATTEND Internal Medicine
DX: M48.07 Spinal stenosis, lumbosacral region (principal); N17.9 Acute kidney failure, unspecified; I10 Essential (primary) hypertension; I25.10 Atherosclerotic heart disease of native coronary artery without angina pectoris; J44.9 Chronic obstructive pulmonary disease, unspecified; Z85.46 Personal history of malignant neoplasm of prostate; R00.1 Bradycardia, unspecified; I44.0 Atrioventricular block, first degree; Z95.1 Presence of aortocoronary bypass graft; E86.1 Hypovolemia; E66.9 Obesity, unspecified; Z68.32 Body mass index [BMI] 32.0-32.9, adult; E78.5 Hyperlipidemia, unspecified
CPT/HCPCS: 36415; 70450-TC; 71045-TC-FY; 72131-TC; 72141-TC; 72148-TC; 80048; 80053; 81003; 82550; 82607; 83735; 83921; 84100; 84443; 84484; 85025; 86593; 87086; 93005; 93010; 94761; 95860-TC; 97116-GP; 97161-GP; 99285-25; J1644; J7030

== ENCOUNTER 2019-04-10 20:38 | Emergency (ER) | payer OTHER, BC ==
[2019-04-10 20:43] VITALS: BMI 32.8
--- NOTE | 2019-04-10 21:49 | PDOC ---
History of Present Illness - General Chief Complaint: Blood Pressure Problem Stated Complaint: HIGH BP Time Seen by Provider: 04/10/19 21:27 - History of Present Illness Initial Comments: 04/10/19 21:42 73 yo M PMH CABG, COPD, HTN, HLD, prostate ca, spinal stenosis, chronic dizziness of uncertain etiology (BPPV v orthostatic hypotension), coming in with worsened dizziness. States that today he was "being forced to hold on to things and feeling unsteady". States multiple times that "I was afraid because I was at home alone". Feels similar in quality to his normal dizziness, but more intense. Exacerbated by sitting up, especially quickly, and occasionally by moving his head to either side. Has been having URI for past week with sinus congestion, mild unproductive cough , but w/o fevers/chills, HALL, N/V, SOB, or CP. States that in conversation with his doctors, he has been completely off all blood pressure medications for the past week to determine whether the dizziness was being caused or exacerbated by medication. Has had continued dizziness despite this. Reports that he checked his blood pressure twice today, first with systolic in the 160s, then systolic in the 200s. Complains of continued dizziness, but has no other complaints. Does state that he has been drinking a lot of water and peeing a lot, but has HbA1C checked regularly, with last one at 5.7. Past History - Past Medical History Allergies/Adverse Reactions: Allergies Allergy/AdvReac Type Severity Reaction Status Date / Time No Known Allergies Allergy Verified 03/12/19 23:17 Home Medications: Ambulatory Orders Aspirin [ASA -] 81 mg PO DAILY #0 tab.chew 11/13/12 Multivit-Min/FA/Lycopene/Lut [Centrum Silver Tablet] 1 tab PO DAILY #0 tablet Alprazolam 0.25 mg PO DAILY PRN 10/27/18 Mirabegron [Myrbetriq] 25 mg PO DAILY 10/27/18 Ranitidine [Zantac -] 150 mg PO BID 10/27/18 Ranolazine [Ranexa -] 1,000 mg PO BID 10/27/18 Tamsulosin HCl [Flomax] 0.4 mg PO HS 10/27/18 Albuterol 0.083% Nebulizer Kate [Ventolin 0.083% Nebulizer Soln -] 1 amp NEB Q4H PRN amp 10/29/18 Ezetimibe [Zetia -] 10 mg PO DAILY tablet 10/29/18 Acetaminophen [Tylenol .Regular Strength -] 650 mg PO Q6H PRN 03/13/19 Brimonidine Tartrate/Timolol [Combigan Eye Drops] 5 ml OP DAILY 03/14/19 Cyanocobalamin (Vitamin B-12) [B-12 Dots] 1,000 mcg PO DAILY #60 tablet Dexamethasone [Decadron] 4 mg PO BID #5 tablet 03/14/19 Gabapentin [Neurontin -] 300 mg PO BID #60 capsule 03/14/19 Valsartan/Hydrochlorothiazide [Diovan Hct 80-12.5 mg Tablet -] 1 tab PO DAILY Anemia: No Asthma: No Cancer: Yes (PROSTATE) Cardiac Disorders: Yes (CABG) CVA: No COPD: Yes CHF: No Dementia: No Diabetes: No GI Disorders: Yes Disorders: No HTN: Yes Hypercholesterolemia: Yes Liver Disease: No Seizures: No Thyroid Disease: No - Surgical History Abdominal Surgery: No Cardiac Surgery: Yes (TRIPLE BYPASS '99) Cholecystectomy: No Lung Surgery: No Neurologic Surgery: No Orthopedic Surgery: No - Psycho Social/Smoking Cessation Hx Smoking Status: No Smoking History: Never smoked Have you smoked in the past 12 months: No Number of Cigarettes Smoked Daily: 0 'Breaking Loose' booklet given: 01/27/14 Hx Alcohol Use: No Drug/Substance Use Hx: No Substance Use Type: Alcohol Review of Systems - Review of Systems Constitutional: No: Chills, Diaphoresis, Fever HEENTM: No: Recent change in vision, Hearing Loss, Difficulty Swallowing Respiratory: Yes: Cough *Physical Exam - Vital Signs Last Vital Signs Temp Pulse Resp BP Pulse Ox 98.0 F 60 19 199/81 H 96 04/10/19 20:41 04/10/19 20:41 04/10/19 20:41 04/10/19 20:41 04/10/19 20:41 - Physical Exam Comments: 04/10/19 21:51 Gen: well-developed, well-nourished, NAD Neuro: AAOX4, CN II-XII intact, FTN intact, EOMI, PERRLA, 5/5 strength, SILT, no nystagmus HEENT: atraumatic, normocephalic, dry mucous membranes Neck: trachea midline, supple CV: regular rate, regular rhythm, no murmurs, rubs, or gallops Pulm: CTA b/l, no wheezing Abd: soft, non-distended, non-tender MSK: full ROM, intact pulses Extr: no edema, no deformities Skin: warm, dry ED Treatment Course - LABORATORY CBC & Chemistry Diagram: 04/10/19 22:00 04/10/19 22:00 Medical Decision Making - Medical Decision Making 04/10/19 22:16 Patient with dizziness and labile pressures. - CBC, CMP - EKG - reassess 04/10/19 23:16 Labs wnl, trop negative 04/10/19 23:20 Orthostatics: Laying down 139/62 Standing up 142/72 Sitting 147/61 04/10/19 23:25 EKG sinus bradycardia at 53 bpm, incomplete RBBB. No longer with 1st degree AV block. Will dc patient home with close follow-up; patient already has appointments with his PCP and his comic book writer this week. Discharge - Discharge Information Problems reviewed: Yes Clinical Impression/Diagnosis: Dizziness, High blood pressure - Follow up/Referral Referrals: Ramiro Alejandro MD [Primary Care Provider] - - Patient Discharge Instructions Patient Printed Discharge Instructions: DI for High Blood Pressure Additional Instructions: You were seen with high blood pressures and chronic dizziness. Your BPs in the ED were within a non-dangerous range, and you were asymptomatic throughout. Your labs and EKG did not show any concerning abnormalities. Please keep your follow up appointments with your primary care doctor and your comic book writer this week. Return to the ED if you develop worsening symptoms. - Post Discharge Activity
[2019-04-10 22:18] LABS: BASO % 0.6 % (0-2.0); EOS % 2.3 % (0-4.5); HEMATOCRIT 46.3 % (35.4-49); HEMOGLOBIN 15.6 GM/dL (11.7-16.9); LYMPH % 27.6 % (8-40); MCH 34.5 pg (25.7-33.7); MCHC 33.7 g/dl (32.0-35.9); MEAN CELL VOLUME 102.3 fl (80-96); MEAN PLT VOLUME 8.5 fl (7.5-11.1); MONO % 14.4 % (3.8-10.2); NEUT % 55.1 % (42.8-82.8); PLATELET COUNT 210 K/MM3 (134-434); RBC 4.52 M/mm3 (4.00-5.60); RDW 13.9 % (11.9-15.9); WHITE BLOOD COUNT 6.2 K/mm3 (4.0-10.0)
--- NOTE | 2019-04-10 22:29 | PDOC ---
Documentation entered by Anjel Zamora SCRIBE, acting as scribe for Moriah Rubio MD. Moriah Rubio MD: This documentation has been prepared by the Noah peterson Nirvannie, SCRIBE, under my direction and personally reviewed by me in its entirety. I confirm that the documentation accurately reflects all work, treatment, procedures, and medical decision making performed by me. Attending Attestation - Resident Resident Name: Elsa Romero - ED Attending Attestation I have performed the following: I have examined & evaluated the patient, The case was reviewed & discussed with the resident, I agree w/resident's findings & plan - HPI HPI: 04/10/19 22:26 73-year-old male with a history of hypertension has been told by his physicians to stop his high blood pressure meds to see if they cause his vertigo. He states he said in the 7 episodes of vertigo this year. HPI patient has complaint of dizziness and elevted BP ,URI infection 04/10/19 23:25 - Physicial Exam PE: 04/10/19 22:27 wnwd 73 yo male has c/o dizziness and recent URI with 'sinus trouble " 04/10/19 22:28 head ncat neck supple lungs cta b/l cvs [id number] abd protuberant extremities no deformities neuro axox3,motor strength 5/5 b/l - Medical Decision Making 04/10/19 23:30 he has no focal neuro deficits,no visual changes,no nausea or vomiting or chest pain this pt has a h/o vertigo in the past pt was given BP meds for his elevated BP and his blood pressure came down Orthostatic hypertension was NOT found when his blood pressure was done supine,standing and seated pt felt much better and wants to be discharged -states that he is with his son and 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
[2019-04-10 22:39] LABS: PROTHROMBIN TIME (PATIENT) 11.8 SEC (9.7-13.0)
[2019-04-10 22:42] LABS: ACTIVATED PTT 31.5 SECONDS (25.2-36.5)
[2019-04-10 22:46] LABS: ALBUMIN 4.2 g/dl (3.4-5.0); BLOOD UREA NITROGEN 15.3 mg/dL (7-18); CALCIUM 9.7 mg/dL (8.5-10.1); CREATININE 0.8 mg/dL (0.55-1.3); POTASSIUM 4.1 mmol/L (3.5-5.1); TOT PROT 7.3 g/dl (6.4-8.2)
[2019-04-10 23:20] VITALS: BP 142/72; PULSE 64; TEMP 98.5
--- NOTE | 2019-04-11 15:54 | EKG ---
Test Reason : Blood Pressure : / mmHG Vent. Rate : 053 BPM Atrial Rate : 053 BPM P-R Int : 162 ms QRS Dur : 102 ms QT Int : 454 ms P-R-T Axes : 041 -45 052 degrees QTc Int : 426 ms SINUS BRADYCARDIA INCOMPLETE RIGHT BUNDLE BRANCH BLOCK LEFT ANTERIOR FASCICULAR BLOCK NONSPECIFIC T WAVE ABNORMALITY ABNORMAL ECG WHEN COMPARED WITH ECG OF 12-MAR-2019 23:52, [place] INTERVAL HAS DECREASED Confirmed by JEANNE RODRIGUEZ, TRANG ([id number]) on 04/11/2019 3:53:51 PM Referred By: Confirmed By:TRANG ANGEL MD
== END 2019-04-11 00:19 | disposition home or self-care (01) ==
LOC: JER 20:38
DX: I10 Essential (primary) hypertension (principal); I25.10 Atherosclerotic heart disease of native coronary artery without angina pectoris; Z95.1 Presence of aortocoronary bypass graft; E78.5 Hyperlipidemia, unspecified; J44.9 Chronic obstructive pulmonary disease, unspecified; M48.00 Spinal stenosis, site unspecified; Z85.46 Personal history of malignant neoplasm of prostate; Z91.14 Patient's other noncompliance with medication regimen
CPT/HCPCS: 36415; 80053; 84484; 85025; 85610; 85730; 93005; 93010; 99283-25

== ENCOUNTER 2019-11-29 11:47 | Emergency (ER) | payer OTHER, BC ==
[2019-11-29 11:54] VITALS: BMI 32.1
[2019-11-29 13:11] LABS: BASO % 0.4 % (0-2.0); EOS % 0.7 % (0-4.5); HEMATOCRIT 45.3 % (35.4-49); HEMOGLOBIN 15.4 GM/dL (11.7-16.9); LYMPH % 16.7 % (8-40); MCH 34.7 pg (25.7-33.7); MEAN CELL VOLUME 102.3 fl (80-96); MEAN PLT VOLUME 9.2 fl (7.5-11.1); MONO % 13.6 % (3.8-10.2); NEUT % 68.6 % (42.8-82.8); PLATELET COUNT 154 K/MM3 (134-434); RBC 4.43 M/mm3 (4.00-5.60); WHITE BLOOD COUNT 10.8 K/mm3 (4.0-10.0)
[2019-11-29 13:30] LABS: INR 1.03 (0.83-1.09); PROTHROMBIN TIME (PATIENT) 12.1 SEC (9.7-13.0)
[2019-11-29 13:34] LABS: ALBUMIN 3.9 g/dl (3.4-5.0); BILIRUBIN,TOTAL 1.3 mg/dL (0.2-1); BLOOD UREA NITROGEN 10.8 mg/dL (7-18); CALCIUM 8.9 mg/dL (8.5-10.1); CREATININE 0.9 mg/dL (0.55-1.3); TOT PROT 7.2 g/dl (6.4-8.2)
[2019-11-29 14:19] LABS: PH,URINE 5.5 (5.0-8.0); URINE APPEARANCE CLEAR; URINE BILIRUBIN NEGATIVE (NEGATIVE); URINE COLOR YELLOW; URINE GLUCOSE (UA) NEGATIVE (NEGATIVE); URINE KETONE NEGATIVE (NEGATIVE); URINE LEUK ESTERASE NEGATIVE (NEGATIVE); URINE NITRITE NEGATIVE (NEGATIVE); URINE PROTEIN NEGATIVE (NEGATIVE); URINE UROBILINOGEN 0.2 mg/dL (0.2-1.0)
[2019-11-29 16:53] VITALS: BP 132/65; PULSE 70; TEMP 98
== END 2019-11-29 16:53 | disposition home or self-care (01) ==
LOC: JER 11:47
DX: K57.92 Diverticulitis of intestine, part unspecified, without perforation or abscess without bleeding (principal)
CPT/HCPCS: 36415; 71045-TC-FY; 74177-TC; 80053; 80061; 81003; 83605; 83690; 83721; 85025; 85610; 87086; 93005; 93010; 99285-25; Q9967

== ENCOUNTER 2021-04-12 04:56 | Day surgery (SDC) | payer OTHER, BC ==
[2021-04-10 15:09] VITALS: BMI 34.2
[2021-04-12 12:37] VITALS: TEMP 97.6
[2021-04-12 14:38] VITALS: BP 120/61; PULSE 57
== END 2021-04-12 14:44 | disposition home or self-care (01) ==
LOC: JASU-ENDO 04:56
PROVIDERS: ATTEND Internal Medicine Gastroenterology
PROC: 0DBL8ZX Excision of Transverse Colon, Via Natural or Artificial Opening Endoscopic, Diagnostic (ICD-10-PCS; 2021-04-12)
PROC: 0DB98ZX Excision of Duodenum, Via Natural or Artificial Opening Endoscopic, Diagnostic (ICD-10-PCS; 2021-04-12)
PROC: 0DB68ZX Excision of Stomach, Via Natural or Artificial Opening Endoscopic, Diagnostic (ICD-10-PCS; 2021-04-12)
PROC: 0DB38ZX Excision of Lower Esophagus, Via Natural or Artificial Opening Endoscopic, Diagnostic (ICD-10-PCS; 2021-04-12)
PROC: 0DBK8ZX Excision of Ascending Colon, Via Natural or Artificial Opening Endoscopic, Diagnostic (ICD-10-PCS; principal; 2021-04-12 11:30)
DX: Z12.11 Encounter for screening for malignant neoplasm of colon (principal); D12.2 Benign neoplasm of ascending colon; D12.3 Benign neoplasm of transverse colon; K64.8 Other hemorrhoids; K29.80 Duodenitis without bleeding; K29.50 Unspecified chronic gastritis without bleeding; K21.00 Gastro-esophageal reflux disease with esophagitis, without bleeding
CPT/HCPCS: 88305-TC; 88342-TC

== ENCOUNTER 2022-08-01 04:34 | Day surgery (SDC) | payer OTHER, BC ==
[2022-07-31 16:03] VITALS: BMI 31.8
[2022-08-01] MEDS ORDERED: TETRACAINE/BENZOCAINE/BUTAMBEN 20 GM SPR TP ONE (09:40)
[2022-08-01 12:21] VITALS: BP 129/61; PULSE 55; RESP 18; TEMP 98
== END 2022-08-01 12:20 | disposition home or self-care (01) ==
LOC: JASU-ENDO 04:34
PROVIDERS: ATTEND Internal Medicine Gastroenterology
PROC: 0DB48ZX Excision of Esophagogastric Junction, Via Natural or Artificial Opening Endoscopic, Diagnostic (ICD-10-PCS; 2022-08-01)
PROC: 0DB78ZX Excision of Stomach, Pylorus, Via Natural or Artificial Opening Endoscopic, Diagnostic (ICD-10-PCS; 2022-08-01)
PROC: 0DB68ZX Excision of Stomach, Via Natural or Artificial Opening Endoscopic, Diagnostic (ICD-10-PCS; 2022-08-01)
PROC: 0D5L8ZZ Destruction of Transverse Colon, Via Natural or Artificial Opening Endoscopic (ICD-10-PCS; principal; 2022-08-01 10:00)
DX: Z12.11 Encounter for screening for malignant neoplasm of colon (principal); Z86.010 Personal history of colon polyps; D12.3 Benign neoplasm of transverse colon; K57.30 Diverticulosis of large intestine without perforation or abscess without bleeding; K25.9 Gastric ulcer, unspecified as acute or chronic, without hemorrhage or perforation; K29.50 Unspecified chronic gastritis without bleeding; K21.00 Gastro-esophageal reflux disease with esophagitis, without bleeding
CPT/HCPCS: 88305-TC; 88342-TC

== ENCOUNTER 2022-12-10 10:42 | Emergency (ER) | payer OTHER, BC ==
[2022-12-10 10:52] VITALS: TEMP 97.7; BMI 32.1
[2022-12-10] MEDS ORDERED: ACETAMINOPHEN 1000 MG/100 ML BAG IVPB ONE (11:12)
[2022-12-10] MEDS ORDERED: methylPREDNISolone NA SUCC 125 MG/2 ML VIAL IVPB ONE (11:12)
[2022-12-10] MEDS ORDERED: ALBUTEROL SO4 2.5/IPRATROPIUM 0.5 INH SOL 3 ML VIAL.NEB. NEB ONE ×2 (11:39→11:52)
[2022-12-10] MEDS ORDERED: ACETAMINOPHEN INJECTION 100 ML IVPB ONE (11:40)
[2022-12-10] MEDS ORDERED: methylPREDNISolone NA SUCC 125 MG/2 ML VIAL ONE (11:41)
[2022-12-10 11:49] LABS: VENOUS BASE EXCESS 2.4 mmol/L (-2-2); VENOUS O2 SATURATION 82.1 % (70-80); VENOUS PH 7.353 (7.310-7.410)
[2022-12-10 11:52] LABS: BASO % 0.5 % (0-2.0); EOS % 2.2 % (0-4.5); HEMATOCRIT 44.5 % (35.4-49); HEMOGLOBIN 14.7 GM/dL (11.7-16.9); LYMPH % 30.3 % (8-40); MCHC 33.1 g/dl (32.0-35.9); MEAN CELL VOLUME 102.9 fl (80-96); MEAN PLT VOLUME 9.6 fl (7.5-11.1); MONO % 11.9 % (3.8-10.2); NEUT % 55.1 % (42.8-82.8); PLATELET COUNT 133 10^3/uL (134-434); RBC 4.33 M/mm3 (4.00-5.60); RDW 13.6 % (11.9-15.9); WHITE BLOOD COUNT 5.5 K/mm3 (4.0-10.0)
[2022-12-10] MEDS: ALBUTEROL SO4 2.5/IPRATROPIUM 0.5 INH SOL 3 ML VIAL.NEB. NEB SCH ×4 (11:52→13:43)
[2022-12-10 12:15] LABS: POTASSIUM 4.1 mmol/L (3.5-5.1)
[2022-12-10 12:17] LABS: CALCIUM 9.5 mg/dL (8.5-10.1)
[2022-12-10 12:18] LABS: BLOOD UREA NITROGEN 15.9 mg/dL (7-18)
[2022-12-10 12:22] LABS: TOT PROT 6.8 g/dl (6.4-8.2)
[2022-12-10 12:25] LABS: N-TERMINAL BNP 140.4 pg/ml (5-450)
[2022-12-10] MEDS ORDERED: AZITHROMYCIN 500 MG TABLET PO ONE (13:55)
[2022-12-10] MEDS ORDERED: AZITHROMYCIN 500 MG TABLET ONE (14:17)
[2022-12-10 14:52] VITALS: BP 130/60; PULSE 61; RESP 14
== END 2022-12-10 15:44 | disposition home or self-care (01) ==
LOC: JER 10:42
PROC: 3E0F7GC Introduction of Other Therapeutic Substance into Respiratory Tract, Via Natural or Artificial Opening (ICD-10-PCS; principal; 2022-12-10)
PROC: 3E0333Z Introduction of Anti-inflammatory into Peripheral Vein, Percutaneous Approach (ICD-10-PCS; 2022-12-10)
PROC: 3E033GC Introduction of Other Therapeutic Substance into Peripheral Vein, Percutaneous Approach (ICD-10-PCS; 2022-12-10)
DX: J44.1 Chronic obstructive pulmonary disease with (acute) exacerbation (principal)
CPT/HCPCS: 0241U-QW; 36415; 71046-TC-FY; 80053; 82803; 83880; 84484; 85025; 87651; 93005; 93010; 99285-25

== ENCOUNTER 2024-04-17 14:16 | Emergency (ER) | payer OTHER, BC ==
[2024-04-17 14:24] VITALS: RESP 18; BMI 29.5
[2024-04-17 16:17] LABS: BASO % 0.3 % (0-2.0); EOS % 1.4 % (0-4.5); HEMATOCRIT 38.5 % (35.4-49); HEMOGLOBIN 12.9 GM/dL (11.7-16.9); LYMPH % 11.5 % (8-40); MCH 34.5 pg (25.7-33.7); MCHC 33.5 g/dl (32.0-35.9); MONO % 12.7 % (3.8-10.2); NEUT % 74.1 % (42.8-82.8); PLATELET COUNT 91 10^3/uL (134-434); RBC 3.74 M/mm3 (4.00-5.60); RDW 13.7 % (11.9-15.9)
[2024-04-17 16:20] LABS: EPI CELLS 0 /uL (0-25.1); HYALINE CASTS 0 /uL (0-3.1); URINE APPEARANCE CLOUDY; URINE BACTERIA 1400 /uL (0-1359); URINE BILIRUBIN NEGATIVE (NEGATIVE); URINE COLOR ORANGE; URINE GLUCOSE (UA) NEGATIVE (NEGATIVE); URINE KETONE NEGATIVE (NEGATIVE); URINE LEUK ESTERASE 2+ (NEGATIVE); URINE NITRITE NEGATIVE (NEGATIVE); URINE PROTEIN 2+ (NEGATIVE); URINE RBC 5341 /uL (0-23.9); URINE WBC 519 /uL (0-25.8)
[2024-04-17 16:37] LABS: POTASSIUM 3.8 mmol/L (3.5-5.1)
[2024-04-17 16:40] LABS: ALBUMIN 3.3 g/dl (3.4-5.0); BLOOD UREA NITROGEN 19.6 mg/dL (7-18); CALCIUM 8.5 mg/dL (8.5-10.1)
[2024-04-17 16:43] LABS: CREATININE 0.9 mg/dL (0.55-1.3)
[2024-04-17 16:44] VITALS: TEMP 97.6
[2024-04-17 16:44] LABS: BILIRUBIN,TOTAL 0.6 mg/dL (0.2-1)
[2024-04-17] MEDS ORDERED: CEFTRIAXONE 1 GM/50 ML BAG ONE (17:18)
[2024-04-17] MEDS: CEFTRIAXONE 1,000 MG in DEXTROSE 5%-WATER - 50 ML IVPB ONE (17:43)
[2024-04-17 17:50] VITALS: BP 106/45; PULSE 55
== END 2024-04-17 18:19 | disposition home or self-care (01) ==
LOC: JER 14:16
DX: T83.091A Other mechanical complication of indwelling urethral catheter, initial encounter (principal); R31.9 Hematuria, unspecified; R10.30 Lower abdominal pain, unspecified
CPT/HCPCS: 36415; 80053; 81003; 84484; 85025; 87086; 87186; 99284-25

== ENCOUNTER 2024-04-18 18:07 | Emergency (ER) | payer OTHER, BC ==
[2024-04-18 18:45] VITALS: BP 129/69; PULSE 63; RESP 20; TEMP 98.1; BMI 29.5
== END 2024-04-18 20:36 | disposition home or self-care (01) ==
LOC: JER 18:07
DX: T83.031A Leakage of indwelling urethral catheter, initial encounter (principal); Y83.1 Surgical operation with implant of artificial internal device as the cause of abnormal reaction of the patient, or of later complication, without mention of misadventure at the time of the procedure
CPT/HCPCS: 99283-25

== ENCOUNTER 2024-04-21 22:59 | Emergency (ER) | payer OTHER, BC ==
[2024-04-21 23:10] VITALS: BP 128/65; PULSE 57; RESP 18; TEMP 97.8; BMI 29.5
== END 2024-04-22 00:40 | disposition home or self-care (01) ==
LOC: JER 22:59
DX: T83.091A Other mechanical complication of indwelling urethral catheter, initial encounter (principal)
CPT/HCPCS: 99283-25

== ENCOUNTER 2024-04-22 19:57 | Emergency (ER) | payer OTHER, BC ==
[2024-04-22 20:11] VITALS: BP 165/78; PULSE 63; RESP 16; TEMP 97.8; BMI 29.5
== END 2024-04-22 22:41 | disposition home or self-care (01) ==
LOC: JER 19:57
DX: T83.011A Breakdown (mechanical) of indwelling urethral catheter, initial encounter (principal)
CPT/HCPCS: 99283-25